=== PATIENT | female | born 1945 | race Caucasian/White ===

== ENCOUNTER 2020-09-20 08:34 | Day surgery (SDC) | payer OTHER ==
[2020-09-20 08:49] LABS: Absolute Lymphocytes (CBC) 0.6 K/uL (0.7-4.9); Basophils % 1.4 % (0-1.3); Lymphocytes % 17.2 % (15.3-44.8); MPV 7.2 fL (7.6-11.3); RBC Red Blood Cell Count 2.42 M/uL (3.86-4.86)
--- NOTE | 2020-09-20 08:54 | RAD REPORT ---
EXAM DESCRIPTION: Harpreet Hyman And Lat (2 Views)09/20/2020 8:25 am CLINICAL HISTORY: Ovarian cancer. Preop for neck mass surgery COMPARISON: None FINDINGS: Calcified pulmonary nodules likely granulomas. The lungs appear clear of acute infiltrate . The heart appears borderline enlarged. A central venous line has its tip in the superior vena cava. Scoliosis involves the spine IMPRESSION: No acute abnormalities displayed
[2020-09-20 08:57] LABS: Potassium 4.6 mmol/L (3.5-5.1)
[2020-09-20] MEDS ORDERED: propofoL 200 MG/20 ML VIAL IV ONE (08:59)
[2020-09-20] MEDS ORDERED: FENTANYL CITR 100 MCG/2 ML ONE (08:59)
[2020-09-20] MEDS ORDERED: LIDOCAINE 2% MPF 5 ML VIAL ONE (08:59)
[2020-09-20] MEDS ORDERED: CEFAZOLIN/SWI 1gm 1 GM/10 ML SYR ONE (09:11)
[2020-09-20] MEDS ORDERED: NA CHLORIDE 0.9% 1,000 ML ONE (09:11)
--- OUTSIDE RECORDS SUMMARY | 2020-09-20 09:27 | XMS REPORT | Clinical Summary ---
:1945 Author Organization [facility] Address [address] [place] [address] Care Team Providers Name Role Phone MD Hans Primary Care Provider Allergies Active Allergy Reactions Severity Noted Date Comments Meperidine GI Intolerance, Other 09/15/2015 "KNOCK ME OUT" & (See Comments) NAUSEA "KNOCK ME OUT" & NAUSEA Sulfamethoxazole-Trime GI Intolerance, Other 5 Other reaction(s): GI thoprim (See Comments) Intolerance Tramadol GI Intolerance, Other 12/04/2017 Other reaction(s): GI (See Comments) Intolerance Medications Medication Sig Dispensed Refills Start End Date Status Date amLODIPine (NORVASC) Take 10 mg 0 Active 10 mg tablet by mouth 8 daily. atenolol (TENORMIN) Take 100 mg 0 Active 100 MG tablet by mouth 2 8 (two) times a day. lisinopril Take 5 mg by 0 Active (PRINIVIL,ZESTRIL) 5 mouth every 8 mg tablet morning. metFORMIN Take 500 mg 0 Active (GLUCOPHAGE) 500 mg by mouth 2 8 tablet (two) times a day with meals. polyethylene glycol Take 17 g by 0 Active (MIRALAX) 17 gram mouth daily packet as needed for constipation . rivaroxaban Take 15 mg 0 Active (XARELTO) 15 mg by mouth tablet daily. gabapentin Take 1 270 capsule 2 Active (NEURONTIN) 100 mg capsule (100 0 capsuleIndications: mg total) by Ovarian cancer on mouth 3 left (HCC), (three) Carcinomatosis times a day. (HCC), Secondary malignant neoplasm of liver (HCC), Elevated CA-125, Neuropathy due to chemotherapeutic drug (HCC) ondansetron (Zofran) Take 1 15 tablet 6 Active 8 MG tablet tablet by 0 mouth every 8 hours for 3 days after infusion, then as needed. niraparib (Zejula) Take 200 mg 120 capsule 3 Active 100 mg capsule by mouth 0 daily. magnesium oxide 400 Take 1 60 tablet 3 Active mg magnesium tablet tablet by 0 mouth 2 (two) times a day. ondansetron (ZOFRAN) Take 1 15 tablet 3 11/12/19 Discontinued 8 MG tablet tablet by 8 20 (Reorder ) mouth every 8 hours for 3 days after infusion, then as needed. ALPRAZolam (XANAX) TAKE 1 0 09/22/20 D iscontinued 0.5 MG tablet TABLET BY 9 19 (Reord er) MOUTH ONCE FOR 1 DOSE TAKE 30 MINUTES PRIOR TO SCAN gabapentin TAKE 1 90 capsule 0 12/08/19 Disconti nued (NEURONTIN) 100 mg CAPSULE BY 9 20 (Reorder) capsuleIndications: MOUTH THREE Ovarian cancer on TIMES DAILY left (HCC), Carcinomatosis (HCC), Secondary malignant neoplasm of liver (HCC), Elevated CA-125, Neuropathy due to chemotherapeutic drug (HCC) ALPRAZolam (XANAX) TAKE 1 1 tablet 0 10/08/19 D iscontinued 0.5 MG tablet TABLET BY 9 20 MOUTH ONCE FOR 1 DOSE TAKE 30 MINUTES PRIOR TO SCAN ALPRAZolam (XANAX) TAKE 1 1 tablet 0 10/08/19 D iscontinued 0.5 MG tablet TABLET BY 0 20 (Dupli ignacio MOUTH order) NEEDED FOR ANXIETY FOR UP TO ONE DOSE. TAKE 30 MINUTES PRIOR TO SCAN ALPRAZolam (XANAX) Take 1 1 tablet 0 02/17/20 D iscontinued 0.5 MG tablet tablet (0.5 0 20 (Reo rder) mg total) by mouth once for 1 dose. Take 30 min prior to scan. ondansetron (ZOFRAN) Take 1 15 tablet 3 12/18/19 Discontinued 8 MG tablet tablet by 0 20 (Reorder ) mouth every 8 hours for 3 days after infusion, then as needed. LORAZepam (ATIVAN) Take 1 5 tablet 0 01/29/20 E xpired 0.5 MG tablet tablet (0.5 0 20 mg total) by mouth daily as needed (prior to chemo for nausia / anxiety) for up to 5 doses. gabapentin Take 1 90 capsule 0 01/02/20 Disconti nued (NEURONTIN) 100 mg capsule (100 0 20 (Reorder) capsuleIndications: mg total) by Ovarian cancer on mouth 3 left (HCC), (three) Carcinomatosis times a day. (HCC), Secondary malignant neoplasm of liver (HCC), Elevated CA-125, Neuropathy due to chemotherapeutic drug (HCC) ondansetron (ZOFRAN) Take 1 15 tablet 6 03/31/20 Discontinued 8 MG tablet tablet by 0 20 (Reorder ) mouth every 8 hours for 3 days after infusion, then as needed. furosemide (LASIX) Take 1 60 tablet 0 03/07/20 E xpired 20 mg tablet tablet (20 0 20 mg total) by mouth 2 (two) times a day for 30 days. Take 1 tab daily starting 02/09/2020 doxycycline Take 1 10 capsule 0 02/11/20 (VIBRAMYCIN) 100 MG capsule (100 0 20 capsule mg total) by mouth 2 (two) times a day for 5 days. ALPRAZolam (Xanax) Take 1 1 tablet 0 02/17/20 E xpired 0.5 MG tablet tablet (0.5 0 20 mg total) by mouth once for 1 dose. Take 30 min prior to scan. atorvastatin Take 20 mg 0 04/25/20 d (LIPITOR) 20 mg by mouth 0 20 tablet daily. ALPRAZolam (Xanax) Take 1 1 tablet 0 04/30/20 E xpired 0.5 MG tablet tablet (0.5 0 20 mg total) by mouth once for 1 dose. Take 30 min prior to scan. nitrofurantoin, Take 1 14 capsule 0 05/10/20 Dis continued macrocrystal-monohyd capsule (100 0 20 (Formulary rate, (Macrobid) 100 mg total) by change) MG capsule mouth 2 (two) times a day for 7 days. ciprofloxacin Take 1 14 tablet 0 05/17/20 d (Cipro) 500 MG tablet (500 0 20 tablet mg total) by mouth 2 (two) times a day for 7 days. albuterol (PROAIR Inhale 2 0 08/12/20 Ex pired HFA) 90 puffs every 0 20 mcg/actuation 6 (six) inhaler hours. amoxicillin-pot Take 1 0 07/23/20 Expi red clavulanate tablet by 0 20 (AUGMENTIN) 875-125 mouth 2 mg per tablet (two) times a day. For 10 days (finish on 07/23) benzonatate Take 100 mg 0 07/27/20 d (TESSALON) 100 MG by mouth 3 0 20 capsule (three) times a day. ALPRAZolam (Xanax) Take 1 1 tablet 0 08/13/20 E xpired 0.5 MG tablet tablet (0.5 0 20 mg total) by mouth once for 1 dose. Take 30 min prior to scan. 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 Ovarian cancer 09/09/2018 Ovarian cancer on left 08/09/2018 Overview: Added automatically from request for ivett polly [id number] Liver metastasis 08/02/2018 Acute dyspnea 05/13/2018 Disorientation 04/05/2018 Confusion with non-focal neuro exam 04/05/2018 Hypomagnesemia 04/05/2018 Hyponatremia 04/05/2018 Chronic atrial fibrillation 04/05/2018 Abnormal brain MRI 04/05/2018 Leukoencephalopathy 04/05/2018 Chest pain 04/03/2018 Anemia associated with chemotherapy 03/27/2018 Ascites, malignant 01/30/2018 Malignant neoplasm of left ovary 01/18/2018 Malignant neoplasm of right ovary 01/18/2018 Carcinomatosis 01/18/2018 Secondary malignant neoplasm of liver 01/18/2018 Diverticular disease 12/04/2017 Aortic aneurysm 12/04/2017 Blood in urine 12/04/2017 Hypertension 12/04/2017 Hyperlipidemia 12/04/2017 Postmenopausal atrophic vaginitis 12/04/2017 Wears glasses Dental crowns status Use of cane as ambulatory aid Encounters Date Type Specialty Care Team Description 09/08/2020 Orders Only Gynecologic Candy Lynch, Malignant neopl asm of left ovary (HCC) (Primary Dx); 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 Malignant neopl asm of right ovary (HCC); Carcinomatosis (HCC) 09/07/2020 Telephone Gynecologic Yahir Oncology MAG [place] 09/06/2020 Orders Only Gynecologic Candy Lynch, 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 09/06/2020 Orders Only Gynecologic Yahir, Malignant neopl asm of Oncology MAG [place] left ovary (HCC ) (Primary Dx) 09/06/2020 Orders Only Gynecologic Candy Lynch, Secondary malig nant neoplasm of liver (HCC) (Primary Dx); 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 Malignant neopl asm of ovary, unspecified laterality (HCC); Malignant neopl asm of left ovary (HCC); Malignant neopl asm of right ovary (HCC); Carcinomatosis (HCC) 08/18/2020 Hospital Encounter Radiology Debbie Sigala Malignant neoplasm of ovary, unspecified laterality (HCC); MD Roberto 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); Secondary malig nant neoplasm of liver (HCC); 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) 08/18/2020 Office Visit Gynecologic Debbie Sigala Malignant neopl asm of left ovary (HCC) (Primary Dx); Oncology MD Roberto Examination moncho or to chemotherapy 08/18/2020 Travel 08/16/2020 Travel 08/16/2020 Telephone Gynecologic Debbie Sigala Oncology MD Roberto 08/13/2020 Orders Only Gynecologic 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 08/09/2020 Telephone Gynecologic Taryn Oncology KARON Hernandez 08/06/2020 Telephone Gynecologic Debbie Sigala Oncology MD Roberto 07/29/2020 Orders Only Gynecologic Debbie Sigala Malignant neopl asm of ovary, unspecified laterality (HCC) (Primary Dx); Oncology MD Roberto 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); Secondary malig nant neoplasm of liver (HCC); 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) 07/29/2020 Telephone Gynecologic Debbie Sigala Oncology MD Roberto 07/22/2020 Infusion Oncology Debbie Sigala Anemia associat ed with chemotherapy (Primary Dx); MD Roberto Malignant neopl asm of left ovary (HCC); Malignant neopl asm of right ovary (HCC); Carcinomatosis (HCC) 07/22/2020 Travel 07/21/2020 Infusion Oncology Debbie Sigala Anemia associat ed with chemotherapy (Primary Dx); MD Roberto Malignant neopl asm of left ovary (HCC); Malignant neopl asm of right ovary (HCC); Carcinomatosis (HCC); Malignant neopl asm of ovary, unspecified laterality (HCC); Secondary malig nant neoplasm of liver (HCC) 07/21/2020 Office Visit Gynecologic Debbie Sigala Examination moncho or to chemotherapy (Primary Dx); Oncology MD Roberto Malignant neopl asm of left ovary (HCC); Elevated CA-125 ; 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); Malignant neopl asm of ovary, unspecified laterality (HCC); Malignant neopl asm of right ovary (HCC); Carcinomatosis (HCC); Secondary malig nant neoplasm of liver (HCC) 07/20/2020 Infusion Oncology Debbie Sigala Anemia associat ed with chemotherapy (Primary Dx); MD Roberto Malignant neopl asm of left ovary (HCC); Malignant neopl asm of right ovary (HCC); Carcinomatosis (HCC); Secondary malig nant neoplasm of liver (HCC); Malignant neopl asm of ovary, unspecified laterality (HCC) 07/20/2020 Travel 07/20/2020 Orders Only Gynecologic Candy Lynch, Malignant neopl asm of left ovary (HCC) (Primary Dx); 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 Anemia followin g use of chemotherapeutic drug; Low blood magne sium level 07/15/2020 Orders Only Gynecologic Candy Lynch, Malignant neopl asm of left ovary (HCC) (Primary Dx); 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 Malignant neopl asm of right ovary (HCC); Examination moncho or to chemotherapy 07/15/2020 Telephone Gynecologic Debbie Sigala Oncology MD Roberto 06/23/2020 Infusion Oncology Debbie Sigala Malignant neopl asm of ovary, unspecified laterality (HCC) (Primary Dx); MD Roberto Malignant neopl asm of left ovary (HCC); Malignant neopl asm of right ovary (HCC); Carcinomatosis (HCC); Secondary malig nant neoplasm of liver (HCC); Malignant neopl asm of both ovaries (HCC) 06/23/2020 Office Visit Gynecologic Debbie Sigala Examination moncho or to chemotherapy (Primary Dx); Oncology MD Roberto Malignant neopl asm of left ovary (HCC); Malignant neopl asm of right ovary (HCC); Carcinomatosis (HCC); Secondary malig nant neoplasm of liver (HCC); Malignant neopl asm of ovary, unspecified laterality (HCC) 06/23/2020 Oncology Oncology Leonard Morejon RN 06/23/2020 Travel 06/22/2020 Orders Only Oncology Re, Malignant neopl asm of MAG [place] ovary, unspecif ied laterality (HCC ) (Primary Dx) 06/21/2020 Travel 06/21/2020 Telephone Gynecologic Candy Lynch, Malignant neopl asm of right ovary (HCC) (Primary Dx); 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 Malignant neopl asm of left ovary (HCC); Secondary malig nant neoplasm of liver (HCC) 06/21/2020 Orders Only Gynecologic Candy Lynch, 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 06/18/2020 Telephone Obstetrics and Debbie Sigala Malignant lalit plasm of left ovary (HCC) (Primary Dx); Gynecology MD Roberto Malignant neopl asm of right ovary (HCC) 06/14/2020 Telephone Obstetrics and Debbie Sigala Gynecology MD Roberto 05/21/2020 Telephone Gynecologic Talia Lei Oncology MA 05/12/2020 Office Visit Gynecologic Debbie Sigala Examination moncho or to chemotherapy (Primary Dx); Oncology MD Roberto Malignant neopl asm of ovary, unspecified laterality (HCC); 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); Elevated CA-125 ; Anemia followin g use of chemotherapeutic drug 05/12/2020 Travel 05/07/2020 Hospital Encounter Radiology Debbie Sigala Malignant neoplasm of ovary, unspecified laterality (HCC); MD Roberto 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); Secondary malig nant neoplasm of liver (HCC); 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) 05/07/2020 Travel 05/06/2020 Telephone Gynecologic Debbie Sigala Oncology MD Roberto 05/06/2020 Travel 05/05/2020 Telephone Gynecologic Debbie Sigala Dysuria (Primar y Dx) Oncology MD Roberto 05/03/2020 Travel 05/03/2020 Telephone Gynecologic Debbie Sigala Oncology MD Roberto 05/01/2020 Travel 04/28/2020 Telephone Gynecologic Debbie Sigala 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) (Primary Dx); Oncology MD Roberto Malignant neopl asm of ovary, unspecified laterality (HCC); 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); Secondary malig nant neoplasm of liver (HCC) 03/31/2020 Telephone Gynecologic Debbie Sigala Oncology MD Roberto 03/25/2020 Infusion Oncology Debbie Sigala Anemia associat ed with chemotherapy (Primary Dx); MD Roberto Malignant neopl asm of left ovary (HCC); Malignant neopl asm of right ovary (HCC); Carcinomatosis (HCC) 03/24/2020 Lab Lab Debbie Sigala Anemia followin g use of MD Roberto chemotherapeuti c drug 03/24/2020 Office Visit Gynecologic Debbie Sigala Malignant neopl asm of ovary, unspecified laterality (HCC) (Primary Dx); Oncology MD Roberto 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); Examination moncho or to chemotherapy; 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); Elevated CA-125 ; Anemia followin g use of chemotherapeutic drug 03/24/2020 Travel 03/22/2020 Telephone Gynecologic 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 Lynch, 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 03/22/2020 Orders Only Candy Beckman, Anemia followin g use of 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 chemotherapeuti c drug (Primary Dx) 03/19/2020 Telephone Radiation Oncology Unique Barber MA 03/18/2020 Telephone Gynecologic Debbie Sigala Oncology MD Roberto 03/15/2020 Telephone Obstetrics and Debbie Sigala Gynecology MD Roberto 03/10/2020 Telephone Gynecologic Debbie Sigala Malignant neopl asm of right ovary (HCC) (Primary Dx); Oncology MD Roberto Malignant neopl asm of left ovary (HCC); Secondary malig nant neoplasm of liver (HCC) 02/26/2020 Infusion Oncology Debbie Sigala Malignant neopl asm of ovary, unspecified laterality (HCC) (Primary Dx); MD Roberto Malignant neopl asm of left ovary (HCC); Malignant neopl asm of right ovary (HCC); Carcinomatosis (HCC); Secondary malig nant neoplasm of liver (HCC) 02/26/2020 Oncology Oncology Leonard Morejon RN 02/26/2020 Orders Only Gynecologic Debbie Sigala Oncology MD Roberto 02/26/2020 Travel 02/25/2020 Orders Only Gynecologic Debbie Sigala Malignant neopl asm of ovary, unspecified laterality (HCC) (Primary Dx); Oncology MD Roberto Malignant neopl asm of left ovary (HCC); Malignant neopl asm of right ovary (HCC); Carcinomatosis (HCC); Secondary malig nant neoplasm of liver (HCC) 02/24/2020 Hospital Encounter Radiology Debbie Sigala Carcinoma tosis (HCC); MD Roberto Secondary malignant neoplasm of liver (H CC); Kanwal Truong Elevated CA-12 5; Daily Malignant neopl asm of ovary, unspecified laterality (HCC) PA-C 02/24/2020 Travel 02/20/2020 Travel 02/17/2020 Telephone Gynecologic Debbie Sigala Oncology MD Roberto 02/12/2020 Travel 02/12/2020 Telephone Obstetrics and Debbie Sigala Gynecology MD Roberto 02/10/2020 Orders Only Gynecologic Kanwal Truong Carcinomatosis (HCC) (Primary Dx); Oncology Daily, Secondary malig nant neoplasm of liver (HCC); PA-C Elevated CA-125 ; Malignant neopl asm of ovary, unspecified laterality (HCC) 02/10/2020 Telephone Obstetrics and Debbie Sigala Gynecology MD Roberto 02/04/2020 - Emergency General Internal [place], Shortness o f breath (Primary Dx); 02/06/2020 Medicine John Cannon MD Abnormal CXR (chest x-ray); Dolores Elevated brain natriuretic peptide (BNP) level; MD Anali Chronic anemia; Thrombocytopeni a (HCC); Hyponatremia; Chronic atrial fibrillation; On anticoagulan t therapy; History of canc er; On antineoplast ic chemotherapy 02/04/2020 Travel 01/27/2020 Telephone Obstetrics and Debbie Sigala 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) (Primary Dx); Gynecology MD Roberto Secondary malig nant neoplasm of liver (HCC) 01/19/2020 Telephone Gynecologic 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 01/15/2020 Infusion Oncology Noé Sigalarifamilia Malignant neopl asm of ovary, unspecified laterality (HCC) (Primary Dx); MD Roberto Malignant neopl asm of left ovary (HCC); Malignant neopl asm of right ovary (HCC); Carcinomatosis (HCC); Secondary malig nant neoplasm of liver (HCC); Anemia associat ed with chemotherapy 01/14/2020 Telephone Consult Gynecologic Debbie Sigala Secondary malignant neoplasm of liver (HCC) (Primary Dx); Oncology MD Roberto Malignant neopl asm of ovary, unspecified laterality (HCC); Malignant neopl asm of left ovary (HCC); Malignant neopl asm of right ovary (HCC); Carcinomatosis (HCC) 01/14/2020 Travel 01/13/2020 Telephone Gynecologic Candy Lynch, 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 01/02/2020 Refill Gynecologic Candy Lynch, Ovarian cancer on left (HCC); 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 Carcinomatosis (HCC); Secondary malig nant neoplasm of liver (HCC); Elevated CA-125 ; Neuropathy due to chemotherapeutic drug (HCC) 12/22/2019 Travel 12/19/2019 Telephone Gynecologic Debbie Sigala Malignant neopl asm of right ovary (HCC) (Primary Dx); Oncology MD Roberto Examination moncho or to chemotherapy 12/18/2019 Infusion Oncology Debbie Sigala Malignant neopl asm of ovary, unspecified laterality (HCC) (Primary Dx); MD Roberto Malignant neopl asm of left ovary (HCC); Malignant neopl asm of right ovary (HCC); Carcinomatosis (HCC); Secondary malig nant neoplasm of liver (HCC) 12/18/2019 Orders Only Gynecologic Noé Sigalarik Malignant neopl asm of ovary, unspecified laterality (HCC) (Primary Dx); Oncology MD Roberto Malignant neopl asm of left ovary (HCC); Malignant neopl asm of right ovary (HCC); Carcinomatosis (HCC); Secondary malig nant neoplasm of liver (HCC) 12/18/2019 Travel 12/18/2019 Orders Only Oncology Sweta Brown RN 12/10/2019 Orders Only Gynecologic Staci Sigalak Oncology MD Roberto 12/07/2019 Refill Obstetrics and Debbie Sigala Ovarian cance r on left (HCC); Gynecology MD Roberto Carcinomatosis (HCC); Secondary malig nant neoplasm of liver (HCC); Elevated CA-125 ; Neuropathy due to chemotherapeutic drug (HCC) 12/04/2019 Telephone Gynecologic Candy Lynch, Malignant neopl asm of right ovary (HCC) (Primary Dx); 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 Elevated CA-125 ; Examination moncho or to chemotherapy 12/03/2019 Office Visit Gynecologic Debbie Sigala Examination moncho or to chemotherapy (Primary Dx); Oncology MD Roberto 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); Malignant neopl asm of right ovary (HCC) 11/24/2019 Telephone Gynecologic Debbie Sigala Oncology MD Roberto 11/18/2019 Telephone Gynecologic Debbie Sigala Oncology MD Roberto 11/12/2019 Infusion Oncology Debbie Sigala Secondary malig nant neoplasm of liver (HCC) (Primary Dx); MD Roberto Carcinomatosis (HCC); Malignant neopl asm of left ovary (HCC); Malignant neopl asm of right ovary (HCC); Malignant neopl asm of ovary, unspecified laterality (HCC) 11/12/2019 Orders Only Oncology Shirlene Warren RPH 11/12/2019 Orders Only Gynecologic Jovon, Tarrik Oncology MD Roberto 11/12/2019 Refill Gynecologic Candy Lynch, 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 11/11/2019 Orders Only Gynecologic Debbie Sigala Malignant neopl asm of ovary, unspecified laterality (HCC); Oncology MD Roberto Malignant neopl asm of left ovary (HCC); Malignant neopl asm of right ovary (HCC); Carcinomatosis (HCC); Secondary malig nant neoplasm of liver (HCC) 11/06/2019 Nurse Triage Gynecologic Candy Lynch, 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 11/06/2019 Orders Only Gynecologic Candy Lynch Dysuria (Primar y Dx) 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 11/05/2019 Telephone Gynecologic Debbie Sigala Oncology MD Roberto 10/22/2019 Office Visit Gynecologic Noé Sigalarifamilia Examination moncho or to chemotherapy (Primary Dx); Oncology MD Roberto 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); Malignant neopl asm of right ovary (HCC); Secondary malnavjot medrano neoplasm of mediastinal lymph nodes (HCC) 10/14/2019 Orders Only Gynecologic Debbie Sigala Secondary malnavjot medrano Oncology MD Roberto neoplasm of intra-abdominal lymph nodes (HCC) (Pr imary Dx) 10/10/2019 Hospital Encounter Radiology Jovon Noémata Ovarian c ancer on left (HCC); MD Roberto Carcinomatosis (HCC); Elevated CA-125 10/08/2019 Orders Only Gynecologic 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 Lynch, 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 10/07/2019 Refill Gynecologic Debbie Sigala Oncology MD Roberto 09/22/2019 Hospital Encounter Radiation Oncology Edgard Resendiz Se malignant neoplasm of para-aortic lymph node (HCC) (Primary Dx); MD Moshe Secondary malig mitchell neoplasm of retroperitoneal lymph node (HCC) 09/22/2019 Nurse Only Oncology Debbie Sigala Ovarian cancer on left MD Roberto (HCC) (Primary Dx) 09/22/2019 Orders Only Gynecologic Candy Lynch, 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 09/22/2019 Orders Only Gynecologic JovonStaci charlesfamilia Ovarian cancer on left (HCC) (Primary Dx); Oncology MD Roberto Carcinomatosis (HCC); Elevated CA-125 09/22/2019 Telephone Gynecologic Debbie Sigala Oncology MD Roberto after 09/20/2019 Surgical History Surgery Date Site/Laterality Comments VEIN STRIPPING, VARICOSE BACK SURGERY REPLACEMENT TOTAL KNEE Left SHOULDER SURGERY Right ABDOMINAL HYSTERECTOMY, WITH 09/09/2018 Abdomen/N/A Pro cedure: LAPAROSCOPIC TOTAL POSSIBLE HYSTERECTOMY BSO , W/ SALPINGO-OOPHORECTOMY OMENTECTOM Y.; Surgeon: Debbie Sigala MD; Location: [facility]; Service: Gynecol ogy; Laterality: N/A; Medical History Medical History Date Comments Hypertension Frequent urination Blood in urine Diverticular disease Aortic aneurysm (HCC) Hyperlipidemia Discoloration of skin Postmenopausal atrophic vaginitis Hyperkalemia Hyponatremia Diabetes mellitus (HCC) A-fib (HCC) Cancer (HCC) Ovarian Atrial fibrillation (HCC) Arrhythmia A fib Anemia Shortness of breath has chest tightness due to weather and allergies Constipation Eating disorder only during chemo Tingling Numbness hands and feet due t o chemo Liver cancer (HCC) Type 2 diabetes mellitus (HCC) Wears glasses Dental crowns status Use of cane as ambulatory aid Exercise tolerance finding ONLY ABLE TO WALK AROUND THE HOUSE AND SOME SHOPPING DUE TO FOOT NUMBNESS/WEAKNESS. NO C/O SOB OR CP ON EXERTIO N NOW. SHE WAS FEELING SOB DURING CHEMO. Family History Medical History Relation Name Comments Colon cancer Mother Relation Name Status Comments Mother Social History Tobacco Use Types Packs/Day Years Used Date Never Smoker Smokeless Tobacco: Never Used Alcohol Use Drinks/Week oz/Week Comments No Sex Assigned at Date Recorded Not on file Job Start Date Occupation Industry Not on file Not on file Not on file Obstetrics History Grav Para Term Pre Abrt (TAB) (SAB) (Ect) Mult Lvng Comments 2 2 Date Outcome GA Total Labor/2nd/3rd Weight Sex Delivery Anes PTL Eloise A 1 A5 Name Clin Labor Para Para Last Filed Vital Signs Vital Sign Reading Time Taken Comments Blood Pressure 159/74 08/18/2020 10:47 AM BEHAVIORAL SCIENTIST Pulse 69 08/18/2020 10:47 AM BEHAVIORAL SCIENTIST Temperature 36.2 C (97.2 F) 07/22/2020 3:26 PM CDT Respiratory Rate 20 07/22/2020 3:26 PM CDT Oxygen Saturation 97% 07/22/2020 3:26 PM CDT Inhaled Oxygen Concentration - - Weight 81.2 kg (179 lb) 08/18/2020 10:47 AM BEHAVIORAL SCIENTIST Height 170.2 cm (5' 7") 08/18/2020 10:47 AM BEHAVIORAL SCIENTIST Body Mass Index 28.04 08/18/2020 10:47 AM BEHAVIORAL SCIENTIST Plan of Treatment Date Type Specialty Care Team Description 09/29/2020 Office Visit [place] [id number], [place] [address] 09/29/2020 [place] [id number] [facility] [address] [place], [place] [address] 10/27/2020 [place] [id number] [facility] [address] [place], [place] [address] Health Maintenance Due Date Last Done Comments DIABETES: RETINAL EYE EXAM 1957 DIABETIC FOOT EXAM 1957 COVID-19 VACCINE (#1) 1963 BREAST CANCER SCREENING 1997 COLONOSCOPY SCREENING 1997 SHINGLES VACCINES (#2) 12/30/2013 11/01/2013 65+ PNEUMOCOCCAL VACCINE Completed 10/19/2017, 09/06/2015 INFLUENZA VACCINE Completed 07/01/2020, 06/16/2020, 2018, Additional history exists Implants Implanted Type Area Planning Manager Device Shelf Model / Identifier Expiration Serial / Date Lot Port [id number] Smart Port W/ Dtchd 0.4ml 6.6fr 55cm W/ Sheath - [id number] Implantable N/A: ANGIODYNAMICS 08/30/2020 [id number] / Implanted: 01/31/2018 at [facility] (Quantity not on file ) Infusion Ports N/A INC / or Accessories [id number] Procedures Procedure Name Priority Date/Time Associated Diagnosis Comme nts PET CT SKULL BASE TO Routine 08/18/2020 3:05 Malignant neopla sm of Results for this MID THIGH PM BEHAVIORAL SCIENTIST ovary, unspecified procedure are in laterality (HCC) the results 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 SMEAR REVIEW Routine 08/18/2020 11:26 Results for this AM BEHAVIORAL SCIENTIST procedure are i n the results section. ESTIMATED GFR Routine 08/18/2020 11:26 Results fo r this AM BEHAVIORAL SCIENTIST procedure are i n the results section. HC COMPLETE BLD COUNT Routine 08/18/2020 11:26 Malignant neopl asm of Results for this W/AUTO DIFF AM BEHAVIORAL SCIENTIST left ovary (HCC) procedure are in Examination prior to the res ults chemotherapy section. CANCER ANTIGEN 125 Routine 08/18/2020 11:26 Malignant neoplasm of Results for this AM BEHAVIORAL SCIENTIST left ovary (HCC) procedure are in Examination prior to the res ults chemotherapy section. COMPREHENSIVE Routine 08/18/2020 11:26 Malignant neoplasm of R esults for this METABOLIC PANEL AM BEHAVIORAL SCIENTIST left ovary (HCC) procedure are in Examination prior to the res ults chemotherapy section. MAGNESIUM LEVEL Routine 08/18/2020 11:26 Malignant neoplasm of Results for this AM BEHAVIORAL SCIENTIST left ovary (HCC) procedure are in Examination prior to the res ults chemotherapy section. TRANSFUSE RED BLOOD Routine 07/22/2020 3:47 Anemia associated with CELLS PM CDT chemotherapy Malignant neoplasm of left ovary (HCC) Malignant neoplasm of right ovary (HCC ) Carcinomatosis (HCC) TRANSFUSE RED BLOOD Routine 07/21/2020 12:35 Anemia associated with CELLS PM CDT chemotherapy Malignant neoplasm of left ovary (HCC) Malignant neoplasm of right ovary (HCC ) Carcinomatosis (HCC) PREPARE RBC Routine 07/20/2020 2:17 Anemia associated with R esults for this PM CDT chemotherapy procedure are in Malignant neoplasm of the re sults left ovary (HCC) section. Malignant neoplasm of right ovary (HCC ) Carcinomatosis (HCC) TYPE AND SCREEN Routine 07/20/2020 2:17 Anemia associated wit h Results for this PM CDT chemotherapy procedure are i n the results section. CBC MORPHOLOGY Routine 07/19/2020 7:44 Results f or this AM CDT procedure are i n the results section. MAGNESIUM LEVEL Routine 07/19/2020 7:44 Malignant neoplasm of Results for this AM CDT left ovary (HCC) procedure are in Malignant neoplasm of the re sults right ovary (HCC ) section. Examination prior to chemotherapy COMPREHENSIVE Routine 07/19/2020 7:44 Malignant neoplasm of R esults for this METABOLIC PANEL AM CDT left ovary (HCC) procedure are in Malignant neoplasm of the re sults right ovary (HCC ) section. Examination prior to chemotherapy CBC WITH PLATELET AND Routine 07/19/2020 7:44 Malignant neopl asm of Results for this DIFFERENTIAL AM CDT left ovary (HCC) procedure are in Malignant neoplasm of the re sults right ovary (HCC ) section. Examination prior to chemotherapy CANCER ANTIGEN 125 Routine 07/19/2020 7:44 Malignant neoplasm of Results for this AM CDT left ovary (HCC) procedure are in Malignant neoplasm of the re sults right ovary (HCC ) section. Examination prior to chemotherapy MAGNESIUM LEVEL STAT 06/23/2020 10:04 Malignant neoplasm of Results for this AM CDT ovary, unspecified procedure are in laterality (HCC) the results Malignant neoplasm of sectio n. left ovary (HCC) Malignant neoplasm of right ovary (HCC ) Carcinomatosis ( HCC) Secondary malignant neoplasm of liver (HCC) CBC WITH PLATELET AND Routine 06/21/2020 1:21 Malignant neopl asm of Results for this DIFFERENTIAL PM CDT right ovary (HCC ) procedure are in Malignant neoplasm of the re sults left ovary (HCC) section. Secondary malignant neoplasm of liver (HCC) COMPREHENSIVE Routine 06/21/2020 1:21 Malignant neoplasm of R esults for this METABOLIC PANEL PM CDT right ovary (HCC ) procedure are in Malignant neoplasm of the re sults left ovary (HCC) section. Secondary malignant neoplasm of liver (HCC) CANCER ANTIGEN 125 Routine 06/21/2020 1:21 Malignant neoplasm of Results for this PM CDT right ovary (HCC ) procedure are in Malignant neoplasm of the re sults left ovary (HCC) section. 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 URINALYSIS, AUTOMATED Routine 05/05/2020 12:00 Dysuria Re sults for this WITH MICROSCOPY AM CDT procedure ar e in the results section. URINE CULTURE Routine 05/05/2020 12:00 Dysuria Results fo r this AM CDT procedure are i n the results section. TRANSFUSE RED BLOOD Routine 03/25/2020 3:38 Anemia associated with CELLS PM CDT chemotherapy Malignant neoplasm of left ovary (HCC) Malignant neoplasm of right ovary (HCC ) Carcinomatosis (HCC) TRANSFUSE RED BLOOD Routine 03/25/2020 12:52 Anemia associated with CELLS PM CDT chemotherapy Malignant neoplasm of left ovary (HCC) Malignant neoplasm of right ovary (HCC ) Carcinomatosis (HCC) PREPARE RBC Routine 03/24/2020 9:47 Results for this AM CDT procedure are i n the results section. TYPE AND SCREEN Routine 03/24/2020 9:47 Anemia following use of Results for this AM CDT chemotherapeutic drug proced ure are in the results section. CBC WITH PLATELET AND Routine 03/20/2020 8:27 Malignant neopl asm of Results for this DIFFERENTIAL AM CDT right ovary (HCC ) procedure are in Malignant neoplasm of the re sults left ovary (HCC) section. Secondary malignant neoplasm of liver (HCC) COMPREHENSIVE Routine 03/20/2020 8:27 Malignant neoplasm of R esults for this METABOLIC PANEL AM CDT right ovary (HCC ) procedure are in Malignant neoplasm of the re sults left ovary (HCC) section. Secondary malignant neoplasm of liver (HCC) CANCER ANTIGEN 125 Routine 03/20/2020 8:27 Malignant neoplasm of Results for this AM CDT right ovary (HCC ) procedure are in Malignant neoplasm of the re sults left ovary (HCC) section. Secondary malignant neoplasm of liver (HCC) ESTIMATED GFR STAT 02/26/2020 9:40 Results fo r this AM CDT procedure are i n the results section. MAGNESIUM LEVEL STAT 02/26/2020 9:40 Malignant neoplasm of Results for this AM CDT ovary, unspecified procedure are in laterality (HCC) the results Malignant neoplasm of sectio n. left ovary (HCC) Malignant neoplasm of right ovary (HCC ) Carcinomatosis ( HCC) Secondary malignant neoplasm of liver (HCC) ABSOLUTE NEUTROPHIL STAT 02/26/2020 9:40 Malignant neoplas m of Results for this COUNT AM CDT ovary, unspecified procedure are in laterality (HCC) the results Malignant neoplasm of sectio n. left ovary (HCC) Malignant neoplasm of right ovary (HCC ) Carcinomatosis ( HCC) Secondary malignant neoplasm of liver (HCC) HC COMPLETE BLD COUNT STAT 02/26/2020 9:40 Malignant neopl asm of Results for this W/AUTO DIFF AM CDT ovary, unspecified procedure are in laterality (HCC) the results Malignant neoplasm of sectio n. left ovary (HCC) Malignant neoplasm of right ovary (HCC ) Carcinomatosis ( HCC) Secondary malignant neoplasm of liver (HCC) COMPREHENSIVE STAT 02/26/2020 9:40 Malignant neoplasm of R esults for this METABOLIC PANEL AM CDT ovary, unspecified proced ure are in laterality (HCC) the results Malignant neoplasm of sectio n. left ovary (HCC) Malignant neoplasm of right ovary (HCC ) Carcinomatosis ( HCC) Secondary malignant neoplasm of liver (HCC) PET CT SKULL BASE TO Routine 02/24/2020 4:41 Carcinomat osis (HCC) Results for this MID THIGH PM CDT Secondary malignant procedur e are in neoplasm of live r (HCC) the results Elevated CA-125 section. Malignant neoplasm of ovary, unspecified laterality (HCC) POC GLUCOSE Routine 02/24/2020 2:26 Results for this PM CDT procedure are i n the results section. POC GLUCOSE Routine 02/06/2020 11:28 Results for this AM CDT procedure are i n the results section. POC GLUCOSE Routine 02/06/2020 7:48 Results for this AM CDT procedure are i n the results section. ESTIMATED GFR Routine 02/06/2020 6:20 Results fo r this AM CDT procedure are i n the results section. BASIC METABOLIC PANEL Routine 02/06/2020 6:20 Re sults for this AM CDT procedure are i n the results section. HC COMPLETE BLD COUNT Routine 02/06/2020 6:20 Re sults for this W/AUTO DIFF AM CDT procedure are i n the results section. POC GLUCOSE Routine 02/05/2020 9:09 Results for this PM CDT procedure are i n the results section. POC GLUCOSE Routine 02/05/2020 5:15 Results for this PM CDT procedure are i n the results section. POC GLUCOSE Routine 02/05/2020 11:18 Results for this AM CDT procedure are i n the results section. POC GLUCOSE Routine 02/05/2020 8:47 Results for this AM CDT procedure are i n the results section. TTE COMPLETE, WO Routine 02/05/2020 8:14 Results for this CONTRAST, WO DOPPLER AM CDT procedu re are in the results section. ESTIMATED GFR Routine 02/05/2020 5:05 Results fo r this AM CDT procedure are i n the results section. BASIC METABOLIC PANEL Routine 02/05/2020 5:05 Re sults for this AM CDT procedure are i n the results section. HC COMPLETE BLD COUNT Routine 02/05/2020 5:05 Re sults for this W/AUTO DIFF AM CDT procedure are i n the results section. TROPONIN Routine 02/04/2020 9:24 Results for this PM CDT procedure are i n the results section. LACTIC ACID LEVEL, Timed 02/04/2020 9:24 Resul ts for this SEPSIS - NOW AND PM CDT procedure a re in REPEAT 2X EVERY 3 the result s HOURS section. POC GLUCOSE Routine 02/04/2020 8:22 Results for this PM CDT procedure are i n the results section. POC GLUCOSE Routine 02/04/2020 6:24 Results for this PM CDT procedure are i n the results section. LACTIC ACID LEVEL, Timed 02/04/2020 5:35 Resul ts for this SEPSIS - NOW AND PM CDT procedure a re in REPEAT 2X EVERY 3 the result s HOURS section. TROPONIN Timed 02/04/2020 5:35 Results for this PM CDT procedure are i n the results section. BLOOD CULTURE, Routine 02/04/2020 3:06 Results f or this AEROBIC & ANAEROBIC PM CDT procedur e are in the results section. PREPARE RBC Routine 02/04/2020 3:00 Results for this PM CDT procedure are i n the results section. PREPARE RBC Routine 02/04/2020 3:00 Results for this PM CDT procedure are i n the results section. LACTIC ACID LEVEL, Timed 02/04/2020 3:00 Resul ts for this SEPSIS - NOW AND PM CDT procedure a re in REPEAT 2X EVERY 3 the result s HOURS section. TYPE AND SCREEN Routine 02/04/2020 3:00 Results for this PM CDT procedure are i n the results section. BLOOD CULTURE, Routine 02/04/2020 2:00 Results f or this AEROBIC & ANAEROBIC PM CDT procedur e are in the results section. XR CHEST 1 VW STAT 02/04/2020 1:28 Results fo r this PORTABLE PM CDT procedure are i n the results section. PARTIAL STAT 02/04/2020 1:10 Results for this THROMBOPLASTIN TIME PM CDT procedur e are in (PTT) the results section. PROTHROMBIN TIME WITH STAT 02/04/2020 1:10 Re sults for this INR PM CDT procedure are i n the results section. ECG ED PRELIMINARY Routine 02/04/2020 1:06 Resul ts for this INTERPRETATION PM CDT procedure are in the results section. ESTIMATED GFR STAT 02/04/2020 1:05 Results fo r this PM CDT procedure are i n the results section. B NATRIURETIC PEPTIDE STAT 02/04/2020 1:05 Re sults for this PM CDT procedure are i n the results section. TROPONIN STAT 02/04/2020 1:05 Results for this PM CDT procedure are i n the results section. COMPREHENSIVE STAT 02/04/2020 1:05 Results fo r this METABOLIC PANEL PM CDT procedure ar e in the results section. HC COMPLETE BLD COUNT STAT 02/04/2020 1:05 Re sults for this W/AUTO DIFF PM CDT procedure are i n the results section. ECG 12-LEAD STAT 02/04/2020 1:00 Results for this PM CDT procedure are i n the results section. TRANSFUSE RED BLOOD Routine 01/15/2020 5:25 Anemia associated with CELLS PM CDT chemotherapy Malignant neoplasm of left ovary (HCC) Malignant neoplasm of right ovary (HCC ) Carcinomatosis (HCC) TRANSFUSE RED BLOOD Routine 01/15/2020 3:02 Anemia associated with CELLS PM CDT chemotherapy Malignant neoplasm of left ovary (HCC) Malignant neoplasm of right ovary (HCC ) Carcinomatosis (HCC) PREPARE RBC STAT 01/15/2020 9:00 Anemia associated with R esults for this AM CDT chemotherapy procedure are in Malignant neoplasm of the re sults left ovary (HCC) section. Malignant neoplasm of right ovary (HCC ) Carcinomatosis (HCC) TYPE AND SCREEN STAT 01/15/2020 9:00 Malignant neoplasm of Results for this AM CDT ovary, unspecified procedure are in laterality (HCC) the results Malignant neoplasm of sectio n. left ovary (HCC) Malignant neoplasm of right ovary (HCC ) Carcinomatosis ( HCC) Secondary malignant neoplasm of liver (HCC) CBC MORPHOLOGY Routine 01/12/2020 7:56 Results f or this AM CDT procedure are i n the results section. COMPREHENSIVE Routine 01/12/2020 7:56 Malignant neoplasm of R esults for this METABOLIC PANEL AM CDT right ovary (HCC ) procedure are in Examination prior to the res ults chemotherapy section. CBC WITH PLATELET AND Routine 01/12/2020 7:56 Malignant neopl asm of Results for this DIFFERENTIAL AM CDT right ovary (HCC ) procedure are in Examination prior to the res ults chemotherapy section. CANCER ANTIGEN 125 Routine 01/12/2020 7:56 Malignant neoplasm of Results for this AM CDT right ovary (HCC ) procedure are in Examination prior to the res ults chemotherapy section. MAGNESIUM LEVEL Routine 01/12/2020 7:56 Malignant neoplasm of Results for this AM CDT right ovary (HCC ) procedure are in Examination prior to the res ults chemotherapy section. ESTIMATED GFR STAT 12/18/2019 8:30 Results fo r this AM CDT procedure are i n the results section. MAGNESIUM LEVEL STAT 12/18/2019 8:30 Malignant neoplasm of Results for this AM CDT ovary, unspecified procedure are in laterality (HCC) the results Malignant neoplasm of sectio n. left ovary (HCC) Malignant neoplasm of right ovary (HCC ) Carcinomatosis ( HCC) Secondary malignant neoplasm of liver (HCC) HC COMPLETE BLD COUNT STAT 12/18/2019 8:30 Malignant neopl asm of Results for this W/AUTO DIFF AM CDT ovary, unspecified procedure are in laterality (HCC) the results Malignant neoplasm of sectio n. left ovary (HCC) Malignant neoplasm of right ovary (HCC ) Carcinomatosis ( HCC) Secondary malignant neoplasm of liver (HCC) COMPREHENSIVE STAT 12/18/2019 8:30 Malignant neoplasm of R esults for this METABOLIC PANEL AM CDT ovary, unspecified proced ure are in laterality (HCC) the results Malignant neoplasm of sectio n. left ovary (HCC) Malignant neoplasm of right ovary (HCC ) Carcinomatosis ( HCC) Secondary malignant neoplasm of liver (HCC) CANCER ANTIGEN 125 Routine 12/09/2019 8:12 Malignant neoplasm of Results for this AM CDT right ovary (HCC ) procedure are in Elevated CA-125 the results Examination prior to section . chemotherapy COMPREHENSIVE Routine 12/09/2019 8:12 Malignant neoplasm of R esults for this METABOLIC PANEL AM CDT right ovary (HCC ) procedure are in Elevated CA-125 the results Examination prior to section . chemotherapy CBC WITH PLATELET AND Routine 12/09/2019 8:12 Malignant neopl asm of Results for this DIFFERENTIAL AM CDT right ovary (HCC ) procedure are in Elevated CA-125 the results Examination prior to section . chemotherapy MANUAL DIFFERENTIAL Routine 12/03/2019 9:27 Resu lts for this AM BEHAVIORAL SCIENTIST procedure are i n the results section. ESTIMATED GFR Routine 12/03/2019 9:27 Results fo r this AM BEHAVIORAL SCIENTIST procedure are i n the results section. CBC WITH PLATELET AND Routine 12/03/2019 9:27 Malignant neopl asm of Results for this DIFFERENTIAL AM BEHAVIORAL SCIENTIST ovary, unspecified procedure are in laterality (HCC) the results section. COMPREHENSIVE Routine 12/03/2019 9:27 Malignant neoplasm of R esults for this METABOLIC PANEL AM BEHAVIORAL SCIENTIST ovary, unspecified proced ure are in laterality (HCC) the results section. MAGNESIUM LEVEL Routine 12/03/2019 9:27 Malignant neoplasm of Results for this AM BEHAVIORAL SCIENTIST ovary, unspecified procedure are in laterality (HCC) the results section. ESTIMATED GFR STAT 11/12/2019 9:15 Results fo r this AM BEHAVIORAL SCIENTIST procedure are i n the results section. MAGNESIUM LEVEL STAT 11/12/2019 9:15 Malignant neoplasm of Results for this AM BEHAVIORAL SCIENTIST ovary, unspecified procedure are in laterality (HCC) the results Malignant neoplasm of sectio n. left ovary (HCC) Malignant neoplasm of right ovary (HCC ) Carcinomatosis ( HCC) Secondary malignant neoplasm of liver (HCC) HC COMPLETE BLD COUNT STAT 11/12/2019 9:15 Malignant neopl asm of Results for this W/AUTO DIFF AM BEHAVIORAL SCIENTIST ovary, unspecified procedure are in laterality (HCC) the results Malignant neoplasm of sectio n. left ovary (HCC) Malignant neoplasm of right ovary (HCC ) Carcinomatosis ( HCC) Secondary malignant neoplasm of liver (HCC) COMPREHENSIVE STAT 11/12/2019 9:15 Malignant neoplasm of R esults for this METABOLIC PANEL AM BEHAVIORAL SCIENTIST ovary, unspecified proced ure are in laterality (HCC) the results Malignant neoplasm of sectio n. left ovary (HCC) Malignant neoplasm of right ovary (HCC ) Carcinomatosis ( HCC) Secondary malignant neoplasm of liver (HCC) URINALYSIS, COMPLETE, Routine 11/07/2019 7:59 Dysuria Re sults for this WITH REFLEX TO AM BEHAVIORAL SCIENTIST procedure are in CULTURE the results section. REFLEXIVE URINE Routine 11/07/2019 7:59 Results for this CULTURE AM BEHAVIORAL SCIENTIST procedure are i n the results section. CANCER ANTIGEN 125 Routine 10/17/2019 8:24 Secondary malignan t Results for this AM BEHAVIORAL SCIENTIST neoplasm of procedure are i n intra-abdominal lymph the re sults nodes (HCC) section. COMPREHENSIVE Routine 10/17/2019 8:24 Secondary malignant Res ults for this METABOLIC PANEL AM BEHAVIORAL SCIENTIST neoplasm of procedure ar e in intra-abdominal lymph the re sults nodes (HCC) section. CBC WITH PLATELET AND Routine 10/17/2019 8:24 Secondary malig nant Results for this DIFFERENTIAL AM BEHAVIORAL SCIENTIST neoplasm of procedure are i n intra-abdominal lymph the re sults nodes (HCC) section. PET CT SKULL BASE TO Routine 10/10/2019 10:52 Ovarian cancer o n left Results for this MID THIGH AM BEHAVIORAL SCIENTIST (HCC) procedure are in Carcinomatosis ( HCC) the results Elevated CA-125 section. POC GLUCOSE Routine 10/10/2019 8:29 Results for this AM BEHAVIORAL SCIENTIST procedure are i n the results section. after 09/20/2019 Results PET/CT Skull Base To Mid Thigh (08/18/2020 3:05 PM BEHAVIORAL SCIENTIST)Only the most recent of4 resultswithin the time period is included. Specimen Narrative Performed At This result has an attachment that is no t available. 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 Subsequent treatment strategy RESTAGING Restaging PET scan. COMPARISON: PET-CT 05/07/2020 TECHNIQUE: Blood glucose measured at the time of injection was 93 mg/dL. The patient was then intravenously injected with 15 mCi of 18F-FDG. Approximately one hour later, PET images were acquired from t he skull base to the mid thighs. Corresponding, low dose, non-contrast CT scanning was perfo rmed as part of the attenuation correction process. FINDINGS: Head and neck: No suspicious lesions are seen in the i zoey head and neck. Chest: No suspicious pulmonary lesions a re identified. There is no mediastinal or hilar lymphadenopathy. No abnormal FDG uptake is seen in the breasts and axillae. Abdomen: Intra-abdominal solid organs de monstrate physiological metabolism without evidence of mass lesions. Bowel metabolism is diffusely prominent, within physiological limits. No hypermetabolic retro peritoneal or mesenteric lymphadenopathy is seen. Pelvis: Right pelvic mesenteric lesion i s stable in size remaining at the 1.4 cm and demonstrates slight decrease in FDG uptake with SUV of 6.7 (previous SUV was 7.8). No new FDG-avid lesions are definitively identified in the pelvis. Musculoskeletal: No worrisome bony lesio ns are identified. Diffusely prominent bone marrow metabolism is consistent with recent systemic therapy. Mild inflammation associated with degenerative arthropathy is noted in the lower lumbar spine. IMPRESSION: Solitary right pelvic mesenteric lesion is unchanged in size and demonstrates slight decrease in hypermetabolism, compatible with stable metastatic disease. 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 Subsequent treatment strategy RESTAGING Restaging PET scan. COMPARISON: PET-CT 05/07/2020 TECHNIQUE: Blood glucose measured at the time of injection was 93 mg/dL. The patient was then intravenously injected with 15 mCi of 18F-FDG. Approximately one hour later, PET images were acquired from the skull base to the mid thighs. Corresponding, low dose, non-contrast CT scanning was perfo rmed as part of the attenuation correction process. FINDINGS: Head and neck: No suspicious lesions are seen in the imaged head and neck. Chest: No suspicious pulmonary lesions a re identified. There is no mediastinal or hilar lymphadenopathy. No abnormal FDG uptake is seen in the breasts and axillae. Abdomen: Intra-abdominal solid organs de monstrate physiological metabolism without evidence of mass lesions. Bowel metabolism is diffusely prominent, within physiological limits. No hypermetabolic retroperitoneal or mesenteric lymphadenopathy is seen. Pelvis: Right pelvic mesenteric lesion i s stable in size remaining at the 1.4 cm and demonstrates slight decrease in FDG uptake with SUV of 6.7 (previous SUV was 7.8). No new FDG-avid lesions are definitively identified in the pelvis. Musculoskeletal: No worrisome bony lesio ns are identified. Diffusely prominent bone marrow metabolism is consistent with recent systemic therapy. Mild inflammation associated with degenerative arthropathy is noted in the lower lumbar spine. IMPRESSION: Solitary right pelvic mesenteric lesion is unchanged in size and demonstrates slight decrease in hypermetabolism, compatible with stable metastatic disease. [id number] Performing Organization Address City/State/ZIP Code Phon e Number [facility] [address] [place] [address] POC glucose (08/18/2020 1:09 PM BEHAVIORAL SCIENTIST)Only the most recent of12 resultswithin the time period is included. Pathologist Sig nature POC glucose 93 65 - 99 mg/dL [facility] Comment: [facility] Supervisor Typesetting Name: Priti Reyes Device ID: [id number] Specimen Blood Performing Organization Address City/[facility] Phon e Number [facility] DEPARTMENT OF PATHOLOGY [address] [place] [address] Smear review (08/18/2020 11:26 AM BEHAVIORAL SCIENTIST) Pathologist [facility] Platelet slide review Dieudonne slt decr (A) [facility] Anisocytosis Moderate [facility] Polychromasia Moderate [facility] Tear drop cells Occasional [facility] Ovalocytes Moderate [facility] Acanthocytes Occasional [facility] Enlarged platelets Moderate (A) [facility] Specimen Plasma Performing Organization Address [facility] Phon e Number [facility] DEPARTMENT OF PATHOLOGY [address] [place] [address] Estimated GFR (08/18/2020 11:26 AM BEHAVIORAL SCIENTIST)Only the most recent of9 resultswithin the time period is included. [facility] Estimated GFR 53 (A) mL/min/1.73 [facility] Comment: m2 [place] Catergory Units Interpretation HOS PITAL G1 >=90 Normal or high G2 60-89 Mildly decreased G3a 45-59 Mildly to moderately decreas ed G3b 30-44 Moderately to severely decre ased G4 15-29 Severely decreased G5 <15 Kidney failure The eGFR was calculated using the Chronic Kidney Disea se Epidemiology Collaboration (CKD-EPI) equation. Interpretation is based on recommendations of the National Kidney Foundation-Kidney Disease Outcomes Moreno lity Initiative (NKF-KDOQI) published in 2014. Specimen Plasma Performing Organization Address City/[facility] Phon e Number [facility] DEPARTMENT OF PATHOLOGY [address] [place] [address] CBC with platelet and differential (08/18/2020 11:26 AM BEHAVIORAL SCIENTIST)Only the most recent of15 resultswithin the time period is included. Pathologist [facility] WBC 4.2 (L) 4.5 - 11.0 k/uL [facility] RBC 2.34 (L) 4.20 - 5.50 [facility] m/uL [facility] HGB 7.9 (L) 12.0 - 16.0 [facility] g/dL [facility] HCT 24.0 (L) 37.0 - 47.0 % [facility] MCV 102.6 (H) 82.0 - 100.0 fL [facility] MCH 33.8 27.0 - 34.0 pg [facility] MCHC 32.9 31.0 - 37.0 [facility] g/dL [facility] RDW - SD 77.5 (H) 37.0 - 55.0 fL [facility] MPV 9.7 6.9 - 11.0 fL [facility] Platelet count 137 (L) 150 - 400 K/uL [facility] Nucleated RBC 0.00 /100 WBC [facility] Neutrophils 58.1 39.0 - 69.0 % [facility] Lymphocytes 29.0 25.0 - 45.0 % [facility] Monocytes 10.5 (H) 0.0 - 10.0 % [facility] Eosinophils 1.2 0.0 - 5.0 % [facility] Basophils 1.0 0.0 - 1.0 % [facility] Immature granulocytes 0.2 0.0 - 1.0 % [facility] Specimen Plasma Performing Organization Address [facility] Phon e Number [facility] DEPARTMENT OF PATHOLOGY [address] [facility] X [address] AND GENOMIC [facility]IC[facility] [address] [facility] X [address] HOSPITAL Cancer antigen 125 (08/18/2020 11:26 AM BEHAVIORAL SCIENTIST)Only the most recent of8 results within the time period is included. CA 125 183 (H) 0 - 35 U/mL [facility] Comment: HOSPITAL The makerist Levi 8000 CA125 immunoassay was used. Results obtained with different assay methods or kits should not be used interchangeably and may be differen t. Specimen Plasma Performing Organization Address City/State/ZIP Code Phon e Number [facility] DEPARTMENT OF PATHOLOGY AND [address] [place] [address] [facility] [address] [place] [address] Magnesium level (08/18/2020 11:26 AM BEHAVIORAL SCIENTIST)Only the most recent of9 resultswithin the time period is included. Pathologist Sig nature Magnesium 1.4 (L) 1.6 - 2.4 mg/dL [facility] Specimen Plasma Performing Organization Address City/[facility]/ZIP Code Phon e Number [facility] DEPARTMENT OF PATHOLOGY [address] [facility] X [address] AND [facility] [id number] [place] [address] X [address] [facility] Comprehensive metabolic panel (08/18/2020 11:26 AM BEHAVIORAL SCIENTIST)Only the most recent of13 resultswithin the time period is included. Pathologist Sig nature Sodium 129 (L) 135 - 148 mEq/L [facility] Potassium 4.5 3.5 - 5.0 mEq/L [facility] Chloride 93 (L) 98 - 112 mEq/L [facility] CO2 26 24 - 31 mEq/L [facility] Anion gap 10@ANIO 7 - 15 mEq/L [facility] BUN 21 8 - 23 mg/dL [facility] Creatinine 1.04 (H) 0.50 - 0.90 [facility] mg/dL [facility] Glucose 101 (H) 65 - 99 mg/dL [facility] Calcium 10.0 8.8 - 10.2 [facility] mg/dL [facility] Protein 6.5 6.3 - 8.3 g/dL [facility] Albumin 3.7 3.5 - 5.0 g/dL [facility] A/G ratio 1.3 0.7 - 3.8 [facility] Alkaline phosphatase 114 (H) 35 - 104 U/L [facility] AST 30 10 - 35 U/L [facility] ALT 17 5 - 50 U/L [facility] Total bilirubin 0.7 0.2 - 1.2 mg/dL [facility] Specimen Plasma Performing Organization Address City/[facility]/ZIP Code Phon e Number [facility] DEPARTMENT OF PATHOLOGY [id number] [place] [address]. [facility] X [address] AND [facility] [address] [place] [address] X [address] HOSPITAL Transfuse RBC (07/22/2020 3:47 PM CDT)Only the most recent of6 resultswithin the time period is included.Prepare RBC, 2 Units (07/20/2020 2:17 PM CDT)Only the most recent of5 resultswithin the time period is included. Product name Apheresis -1 LR #1 [facility] Unit number [id number] [facility] Product code [id number] [facility] Dispense status Transfused [facility] Blood expiration date [facility] Blood type code 5100 [facility] Blood type O POSITIVE [facility] Compatibility Compatible [facility] Product name Red Blood Cells [facility], Leukored [facility] Unit number [id number] [facility] Product code [id number] [facility] Dispense status Transfused [facility] Blood expiration date [facility] Blood type code 5100 [facility] Blood type O POSITIVE [facility] Compatibility Compatible [facility] Specimen Plasma Performing Organization Address City/[facility]/ZIP Code Phon e Number [facility] DEPARTMENT OF PATHOLOGY [address] [place] [address] X [address] X [address] HOSPITAL Type and screen (07/20/2020 2:17 PM CDT)Only the most recent of4 resultswithin the time period is included. Pathologist Sig nature ABO grouping OComment: Blood [facility] is available. [facility] 07/20/20 17:01 Eduarda Myalil Rh type POS [facility] Antibody screen NEG [facility] (gel) [facility] Specimen Blood Performing Organization Address City/[facility]/ZIP Code Phon e Number [facility] DEPARTMENT OF PATHOLOGY [address] [place] [address] X [address] [place]le [place]ano, [place] [address] [facility] CBC MORPHOLOGY (07/19/2020 7:44 AM CDT)Only the most recent of2 resultswithin the time period is included. CBC morphology NORMAL [facility] Comment: [place] Anisocytosis 1 + Macrocytosis 1 + Poikilocytosis 1 + Hypochromasia 1 + Bland cells 1 + Specimen Narrative Performed At FASTING:NO [facility] FASTING: NO Resulting Agency Comment Performing Organization Information: Site ID: [id number] Address: [address] [place] [id number] Director: Bryce Drew Performing Organization Address [facility] Phon e Number [facility] [place] [id number] Urinalysis, automated with microscopy (05/05/2020 12:00 AM CDT) Color, UA YELLOW YELLOW [facility] [place] Appearance TURBID (A) CLEAR [facility] [place] Specific gravity, 1.016 1.001 - 1.035 [facility] urine [place] pH, urine 5.5 5.0 - 8.0 [facility] [place] Glucose, urine NEGATIVE NEGATIVE [facility] [place] Bilirubin, UA NEGATIVE NEGATIVE [facility] [place] Ketones, UA TRACE (A) NEGATIVE [facility] [place] Occult blood, 2+ (A) NEGATIVE [facility] urine [place] Protein, UA 2+ (A) NEGATIVE [facility] [place] Nitrite, UA NEGATIVE NEGATIVE [facility] [place] Leukocyte 3+ (A) NEGATIVE [facility] esterase, UA [facility] WBC, UA > OR = 60 (A) < OR = 5 /HPF [facility] [place] RBC, UA 3-10 (A) < OR = 2 /HPF [facility] [place] Squamous 0-5 < OR = 5 /HPF [facility] epithelial cells, [place] UA Bacteria, UA FEW (A) NONE SEEN /HPF [facility] [place] Hyaline casts, UA NONE SEEN NONE SEEN /LPF [facility] [place] Specimen Urine Narrative Performed At FASTING:NO [facility] FASTING: NO Resulting Agency Comment Performing Organization Information: Site ID: [id number] Name[facility] Address: [address] [place] [id number] Director: Bryce Drew Performing Organization Address City/[facility] Phon e Number [facility] Adisn [address] [address] Urine culture (05/05/2020 12:00 AM CDT) Urine culture SEE NOTE (A) [facility] Comment: [facility] CULTURE, URINE, ROUTINE Micro Number: [id number] Test Status: Final Specimen Source: URINE, CLEAN CATCH Specimen Quality: Adequate Result: Greater than 100,000 CFU/mL of Klebsiella pneumoniae K.pneumoniae - INT ANTONELLA AMOX/CLAVULANATE S <=2 AMPICILLIN R >=32 AMP/SULBACTAM S 4 CEFAZOLIN NR <=4 2 CEFEPIME S <=1 CEFTRIAXONE S <=1 CIPROFLOXACIN S <=0.25 GENTAMICIN S <=1 IMIPENEM S <=0.25 LEVOFLOXACIN S <=0.12 NITROFURANTOIN I 64 PIP/TAZOBACTAM S <=4 TOBRAMYCIN S <=1 TRIMETHOPRIM/SULFA S <=20 S=Susceptible I=Intermediate R=Resistant * = Not Tested NR = Not Reported NN = See Therapy Comments THERAPY COMMENTS Note 1: For infections other than uncomplicated UTI caused by E. coli, K. pneumoniae or P. mirabilis : Cefazolin is resistant if ANTONELLA > or = 8 mcg/mL. (Distinguishing susceptible versus intermediate for isolates with ANTONELLA < or = 4 mcg/mL requires additional testing.) Note 2: For uncomplicated UTI caused by E. coli, K. pneumoniae or P. mirabilis: Cefazolin is susceptible if ANTONELLA <32 mcg/mL and predicts susceptible to the oral agents cefaclor, cefdini r, cefpodoxime, cefprozil, cefuroxime, cephalexin and loracarbef. Specimen Urine Narrative Performed At FASTING:NO [facility] FASTING: NO Resulting Agency Comment Performing Organization Information: Site ID: [id number] Name: [facility] Address: [address] [place] [id number] Director: Bryce Drew Performing Organization Address City/State/ZIP Code Phon e Number [facility] [address] [address] Absolute neutrophil count (02/26/2020 9:40 AM CDT) Pathologist Sig nature Neutrophils, absolute 3.08 1.76 - 7.59 k/uL [facility] Specimen Blood Performing Organization Address City/[facility]/ZIP Code Phon e Number [facility] DEPARTMENT OF PATHOLOGY [id number] [place] [address] Basic metabolic panel (02/06/2020 6:20 AM CDT)Only the most recent of2 results within the time period is included. [facility] Sodium 127 (L) 135 - 148 mEq/L [facility] Potassium 3.9 3.5 - 5.0 mEq/L [facility] Chloride 92 (L) 98 - 112 mEq/L [facility] CO2 26 24 - 31 mEq/L [facility] Anion gap 9@ANIO 7 - 15 mEq/L [facility] BUN 22 8 - 23 mg/dL [facility] Creatinine 1.19 (H) 0.50 - 0.90 mg/dL [facility] Glucose 109 (H) 65 - 99 mg/dL [facility] Calcium 8.3 (L) 8.8 - 10.2 mg/dL [facility] Specimen Blood Performing Organization Address City/[facility] Code Phon e Number [facility] DEPARTMENT OF PATHOLOGY [id number] [place] [address] Transthoracic Echocardiogram Complete, (w Contrast, Strain and 3D if needed) (02/05/2020 8:14 AM CDT) Pathologist Sig [facility] Velocity Ratio (V1/V2) 0.52 m/s [facility] IVS,d 1.09 cm [facility] EF 55.17 % [facility] Ascending aorta 3.11 cm [facility] LVPWD,d 1.11 cm [facility] AoV Mean PG 11.76 mmHg [facility] AV LVOT peak gradient 6.36 mmHg [facility] MV mean gradient 2.17 mmHg [facility] MV valve area p 1/2 method 4.61 cm2 [facility] PV Pk Grad 7.81 mmHg [facility] E/A ratio 2.35 [facility] E wave decelartion time 164.60 msec HM [facility] LVOT Diam,S 1.93 cm HM [facility] LVOT area 2.92 cm2 HM [facility] LVOT Vmax 1.33 m/s HM [facility] LVOT VTI 0.28 m HM [facility] RVOT Vmax 1.00 m/s HM [facility] AoV Peak PG 26.50 mmHg HM [facility] PV Mean Grad 3.06 mmHg HM [facility] MV Peak E Noam 1.34 m/s HM [facility] MV stenosis pressure 1/2 time 47.73 ms HM [facility] MV Peak A Noam 0.57 m/s HM [facility] Ao Root Diameter 3.32 cm HM [facility] AoV Area, Vmax 1.43 cm2 HM [facility] AoV Area, VTI 1.77 cm2 HM [facility] AoV Vmax 2.57 m/s HM [facility] IVS/LVPW,2D 0.98 HM [facility] Left Atrium Dimension Anterior 3.53 cm HM [facility] LV,d 4.59 cm HM [facility] LV,s 3.28 cm HM [facility] PV VMAX 1.40 m/s HM [facility] PV VTI 0.26 m HM [facility] RVSP (TR) 70.13 mmHg HM [facility] TR Vpeak 3.88 mm/s HM [facility] MV E A ratio 2.37 HM [facility] TR pk grad 40.08 mmHg HM [facility] MR peak grad 6.46 mmHg HM [facility] PV Vmn 0.80 HM [facility] RVSP 70.13 mmHg HM [facility] Ao Root Diameter 3.32 cm HM [facility] LV SYS VOL 43.36 ml HM [facility] LV GILLIS VOL 96.73 ml HM [facility] LV SV Teich 2D 53.38 ml HM [facility] LV Vol s Teich PSAX 43.36 ml HM [facility] MV Vmax 1.27 m HM [facility] MV VTI Tips 0.28 m HM [facility] RVOT pk grad 4.00 mmHg HM [facility] AoV Vmn 1.55 HM [facility] LV FS Cube 2D 28.60 HM [facility] LV FS Teich 2D 28.60 HM [facility] AoV VTI 0.46 m HM [facility] LA Area d A4C 25.33 cm2 HM [facility] LV EF,2D 63.59 % HM [facility] MR Vmax 4.41 m/s HM [facility] MV AE ratio 0.42 HM [facility] LVOT Vmn 0.94 HM [facility] Aov area Vmn 1.74 cm2 HM [facility] LA Vol d MOD A4C 83.63 ml HM [facility] LVOT mean grad 3.87 mmHg HM [facility] MAX Pred HR 147.53 HM [facility] 85 of MPHR 125.40 HM [facility] Calc MPHR 147.53 bpm HM [facility] LV SV Cube 2D 61.41 ml HM [facility] LV vol d cube 2D 96.56 ml HM [facility] LV vol s cube 2D 35.15 ml HM [facility] MV Decel slope 8.15 m/s2 HM [facility] Pred Exer Dur R1 6.56 HM [facility] Pred METS R1 5.28 HM [facility] Specimen Narrative Performed At This result has an attachment that is no t available. Normal LV systolic function, ejection fraction 60-64%. HM [facility] Diastolic dysfunction is indeterminate. Bi-atrial enlargement. Mild-moderate tricuspid valve regurgitation. Moderate pulmonic valve regurgitation. Moderate pulmonary hypertension present. Performing Organization Address City/[facility]/ZIP Code Phon e Number [facility] [address] [place] [address], Lactic acid level, SEPSIS - Now and repeat 2x every 3 hours (02/04/2020 9:24 PM CDT)Only the most recent of3 resultswithin the time period is included. Pathologist Sig nature Lactic acid 2.2 0.5 - 2.2 mmol/L [facility] Specimen Blood Performing Organization Address City/[facility]/ZIP Code Phon e Number [facility] DEPARTMENT OF PATHOLOGY [address] [facility] [place] [address] AND GENOMIC MEDICINE [facility] [address] [facility] X [address] HOSPITAL Troponin (02/04/2020 9:24 PM CDT)Only the most recent of3 resultswithin the time period is included. Troponin <0.006 0.000 - 0.040 [facility] Comment: ng/mL [facility] In patients suspected of having a myocardial infarctio n, along with all other appropriate clinical measures and actions includ ing ECG and other diagnostics as appropriate, measure Ultra TnI at 0 hrs and at 3 hrs. Myocardial infarction VERY LIKELY The 0 hr TnI level is > 0.10 ng/mL Myocardial infarction LIKELY The 0 hr TnI level is > 0.04 ng/mL and 3 hr level is i ncreased or decreased by at least 0.020 ng/mL Myocardial infarction VERY UNLIKELY Both the 0 hr and 3 hr TnI levels <= 0.04 ng/mL(within normal limits) OR 0 hr is > 0.04 ng/mL and 3 hr is increased OR decreased by less than 0.020 ng/mL Specimen Blood Performing Organization Address [facility] Phon e Number [facility] DEPARTMENT OF PATHOLOGY [id number] [place] [address], T X [address] AND [facility] [id number] [place] [address], T X [address] HOSPITAL Blood culture, aerobic & anaerobic (02/04/2020 3:06 PM CDT)Only the most recent of2 resultswithin the time period is included. Blood culture No growth after 5 days of incubation. HO [facility] isolate Comment: HOSPITAL Specimen Information Specimen Source: Blood Specimen Site: Arm, left Specimen Blood - Arm, left Performing Organization Address [facility] Phon e Number [facility] DEPARTMENT OF PATHOLOGY AND [address] [place], [place] [address] [address] XR Chest 1 Vw Portable (02/04/2020 1:28 PM CDT) Specimen Narrative Performed At EXAMINATION: XR CHEST 1 VW PORTABLE [facility] CLINICAL HISTORY: SOB COMPARISON: Chest x-ray 05/13/2018 IMPRESSION: Single frontal view reveals a stable cardi omediastinal silhouette with right sided Port-A-Cath in place. Left basilar opacification has developed partially obscuring the he midiaphragm concerning for pneumonia and/or trace ef fusion. Right hemithorax is clear. Old right rib fracture again note d. The remainder of the examination is unchanged. [facility]-[id number] Procedure Note Interface, Radiology Results Incoming - 02/04/2020 1:38 PM CDT EXAMINATION: XR CHEST 1 VW PORTABLE CLINICAL HISTORY: SOB COMPARISON: Chest x-ray 05/13/2018 IMPRESSION: Single frontal view reveals a stable cardiomediastinal silhouette with right sided Port-A-Cath in place. Left basilar opacification has developed partially obscuring the hemidiaphragm concerning for pneumonia and/or trace effusion. Right hemithorax is clear. Old right rib fract ure again noted. The remainder of the examination is unchanged. [facility]-[id number] Performing Organization Address City/[facility]/ZIP Code Phon e Number [facility] [address] [place] [address] Partial thromboplastin time, activated (02/04/2020 1:10 PM CDT) PTT 51.9 (H) 23.0 - 36.0 [facility] Comment: [facility] PTT therapeutic range for unfractionated heparin is HOSPITAL 61.0-112.0 seconds which corresponds to Anti-Xa 0.3-0.7 U/ml. Specimen Blood Performing Organization Address [facility] Phon e Number [facility] DEPARTMENT OF PATHOLOGY [address] [place] [address] Prothrombin time with INR (02/04/2020 1:10 PM CDT) Prothrombin time 32.1 (H) 11.5 - 14.5 [facility] sec [facility] INR 3.1 [facility] Comment: AMISH [facility] International Normalized Ratio (INR) is a therapeu [facility] monitoring tool for patients who are stable on oral anticoagulant therapy. An INR of 2.0-3.0 is suggested for deep vein thrombosis/pulmonary embolism. 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 T waves: T waves: flattening and inverted Flattening: V1 Inverted: V3 B natriuretic peptide (02/04/2020 1:05 PM CDT) Pathologist Sig nature BNP 527 (H) 0 - 100 pg/mL [facility] Specimen Blood Performing Organization Address City/[facility] Phon e Number [facility] DEPARTMENT OF PATHOLOGY [address] [facility] X [address] AND GENOMIC MEDICINE [facility] [address] [place] [address] X [address] [facility] ECG 12 lead (02/04/2020 1:00 PM CDT) Pathologist Sig nature Ventricular rate 78 [facility] Atrial rate 122 [facility] QRSD interval 70 [facility] QT interval 374 [facility] QTC interval 426 [facility] QRS axis 1 31 [facility] T wave axis 41 [facility] EKG impression Atrial fibrillation-Nonspeci fic ST and T wave abnormality- Abnormal ECG-In automated comparison with ECG of 13-MAY-2018 13:27,-Nonspecific T wave abnormality now evident in Inferior leads-Nonspecific T wave abnormality now evident in Lateral [facility] MUSE leads- Specimen Narrative Performed At This result has an attachment that is no t available. Performing Organization Address City/[facility]/ZIP Code Phon e Number [facility] MUSE [address] [place] [address] Manual differential (12/03/2019 9:27 AM BEHAVIORAL SCIENTIST) Manual differential PERFORMED [facility] [facility] Neutrophils 8.0 (L) 39.0 - 69.0 [facility] Lymphocytes 81.0 (H) 25.0 - 45.0 [facility] Monocytes 11.0 (H) 0.0 - 10.0 % [facility] Eosinophils 0.0 0.0 - 5.0 % [facility] Basophils 0.0 0.0 - 1.0 % [facility] Nucleated RBC 1 /100 [facility] [place] Comment: [facility] NRBC results have been factored into the WBC count. [facility] No further calculation is needed. Reactive lymphocytes Moderate (A) [facility] Platelet slide Mkd decreased (A) [facility] Spherocytes Occasional [facility] Specimen Performing Organization Address City/[facility]/ZIP [facility] Phon e Number [facility] DEPARTMENT OF PATHOLOGY [address] [facility] X [phone] AND GENOMIC MEDICINE [facility] [address] [facility] X [address] [facility] URINALYSIS, COMPLETE, WITH REFLEX TO CULTURE (11/07/2019 7:59 AM BEHAVIORAL SCIENTIST) Color, UA YELLOW YELLOW [facility] [place] Appearance CLEAR CLEAR [facility] [place] Specific gravity, 1.013 1.001 - 1.035 [facility] urine [place] pH, urine 7.5 5.0 - 8.0 [facility] [place] Glucose, urine NEGATIVE NEGATIVE [facility] [place] Bilirubin, UA NEGATIVE NEGATIVE [facility] [place] Ketones, UA NEGATIVE NEGATIVE [facility] [place] Occult blood, urine NEGATIVE NEGATIVE [facility] [place] Protein, UA TRACE (A) NEGATIVE [facility] [place] Nitrite, UA NEGATIVE NEGATIVE [facility] [place] Leukocyte esterase, NEGATIVE NEGATIVE [facility] UA [place] WBC, UA NONE SEEN < OR = 5 /HPF [facility] [place] RBC, UA NONE SEEN < OR = 2 /HPF [facility] [place] Squamous epithelial NONE SEEN < OR = 5 /HPF [facility] cells, [facility]A [place] Bacteria, UA NONE SEEN NONE SEEN /HPF [facility] [place] Hyaline casts, UA NONE SEEN NONE SEEN /LPF [facility] [place] Specimen Resulting Agency Comment Performing Organization Information: Site ID: [id number] Name: [facility] Address: [address] [place] [address] Director: Bryce Drew Performing Organization Address City/State/ZIP Code Phon e Number [facility] [place] [address] [place] [address] Reflexive urine culture (11/07/2019 7:59 AM BEHAVIORAL SCIENTIST) Pathologist Sig nature Reflex NO CULTURE INDICATED MELODY [facility]INEZ Specimen Resulting Agency Comment Performing Organization Information: Site ID: [id number] Name: [facility] Address: [address] [place] [address] Director: Bryce Drew Performing Organization Address City/State/ZIP Code Phon e Number [facility] [address] [place] [address] after 09/20/2019 Advance Directives For more information, please contact: [phone] Type Date Recorded 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
--- OUTSIDE RECORDS SUMMARY | 2020-09-20 09:29 | XMS REPORT | Summary of Care ---
:1945 Author Organization [facility] Address [address] [place] [address] Care Team Providers Name Role Phone Lizamann Primary Care Provider Encounter Details Date Type Department Care Team Description 07/13/2020 Hospital Encounter [facility] Adrienne Jones FNP Arrived [facility] [address] [facility] [address] [place] [phone] [place] [address] [phone] Allergies Active Allergy Reactions Severity Noted Date Comments Meperidine Hcl Nausea and/or Vomiting 09/15/2015 documented as of this encounter (statuses as of 07/14/2020) Medications Medication Sig Dispensed Refills Start Date End Date Status amLODIPine (NORVASC) 2.5 Take 10 mg by 0 Active mg tablet mouth daily. atenolol (TENORMIN) 100 Take 100 mg by 0 Active mg tablet mouth 2 (two) times daily. atorvastatin (LIPITOR) 20 Take 20 mg by 0 Active mg tablet mouth at bedtime. FLUTICASONE PROPIONATE Inhale. 0 Active (FLUTICASONE INHALE) metFORMIN (GLUCOPHAGE) Take 500 mg by 0 Active 1,000 mg tablet mouth 2 (two) times daily with meals. OMEPRAZOLE ORAL Take 40 mg by 0 Active mouth. hydrochlorothiazide Take 12.5 mg by 0 Active (ESIDRIX) 12.5 mg capsule mouth daily. lisinopril Take 5 mg by 0 Active (PRINIVIL,ZESTRIL) 5 mg mouth daily. tablet cetirizine (ZYRTEC) 10 mg Take 10 mg by 0 Active tablet mouth as needed for Allergies. phenazopyridine Take 1 tablet 9 tablet 0 06/05/2016 Active (PYRIDIUM) 200 mg tablet by mouth 3 (three) times daily. amLODIPine 10 mg tablet Take 10 mg by 0 Active mouth daily. furosemide 20 mg tablet Take 20 mg by 0 Active mouth as needed. metFORMIN 500 mg tablet Take 500 mg by 0 Active mouth 2 (two) times daily with meals. rivaroxaban 15 mg tablet Take 15 mg by 0 Active mouth daily. Biotin 10 mg Tab Take 1 tablet 0 Active by mouth daily. docusate (STOOL SOFTENER) Take 200 mg by 0 Active 100 mg capsule mouth 2 (two) times daily. diphenhydrAMINE (BENADRYL Take 25 mg by 0 Active ALLERGY) 25 mg tablet mouth every 6 (six) hours as needed for Itching or Allergies. ondansetron 4 mg tablet Take 1 tablet 12 tablet 0 11/24/2017 Active by mouth every 8 (eight) hours as needed for Nausea and Vomiting (N/V). guaiFENesin (MUCINEX) 600 Take 1 tablet 20 tablet 0 01/05/2018 Active mg tablet by mouth every 12 (twelve) hours. benzocaine-menthol Take 1 Lozenge 12 Lozenge 0 01/05/2018 Active (CEPACOL SORE THROAT, by mouth every THEODORA-MEN,) lozenge 2 (two) hours as needed for 48 Hours for Sore throat. albuterol (VENTOLIN HFA) Inhale 2 Puffs 8.5 g 0 07/13/2020 Active 90 mcg/actuation every 6 (six) 0 inhalerIndications: SOB hours as needed (shortness of breath) for Shortness of Breath or Chest tightness for up to 30 days. benzonatate (TESSALON Take 1 capsule 42 capsule 0 07/13/2020 1 Active PERLES) 100 mg by mouth 3 0 capsuleIndications: URI, (three) times acute daily for 14 days. amoxicillin-clavulanate Take 1 tablet 20 tablet 0 07/13/2020 1 Active (AUGMENTIN) 875-125 mg by mouth 2 0 per tabletIndications: (two) times URI, acute daily for 10 days. documented as of this encounter (statuses as of 07/14/2020) Active Problems Problem Noted Date Post-op pain 09/05/2017 documented as of this encounter (statuses as of 07/14/2020) Immunizations Name Administration Dates Next Due Influenza Virus Vaccine 08/01/2017 Zoster(Zostavax)(Shingles) 11/01/2013 documented as of this encounter Social History Tobacco Use Types Packs/Day Years Used Date Never Smoker Smokeless Tobacco: Never Used Alcohol Use Drinks/Week oz/Week Comments No 0 Standard drinks or equivalent 0.0 Sex Assigned at Date Recorded Not on file COVID-19 Exposure Response Date Recorded In the last month, have you been in contact with No / Unsure 07/13/2020 11:41 AM CDT someone who was confirmed or suspected to have Coronavirus / COVID-19? documented as of this encounter Last Filed Vital Signs Not on filedocumented in this encounter Plan of Treatment Health Maintenance Due Date Last Done Comments HEPATITIS C (HCV) SCREEN 1945 Depression Screening 1957 DTaP,Tdap,and Td Vaccines (1 - Tdap) 1966 COLON CANCER SCREENING ANNUAL 1997 FIT/FOBT COLON CANCER SCREENING FIT DNA EVERY 1997 3 YEARS COLON CANCER SCREENING SIGMOIDOSCOPY 1997 EVERY 5 YEARS COLONOSCOPY 1997 Colorectal Cancer Screening 1997 Medicare Wellness Visit 2012 PNEUMOCOCCAL VACCINES 65+ (1 of 1 - 2012 PPSV23) Zoster Recombinant Vaccine (SHINGRIX) 12/27/2013 11/01/2013 (2 of 3) Breast Cancer Screening (MAMMOGRAM) 01/24/2018 01/24/2017, 01/10/2016, 04/20/2015 INFLUENZA VACCINE (#1) 2020 08/01/2017 Osteoporosis Screening 03/15/2026 03/15/2016 documented as of this encounter Implants Implanted Type Area Environmental Web Crawler Device Shelf Model / Identifier Expiration Serial / Lot Date [place] R+G Bone Cement With Gentamicin CEMENT Left: Anayeli 02/28/202123-2928-357-01 / Implanted: Qty: 2 on 09/05/2017 by Olayinka Rock MD at [facility] Knee [id number] / [id number] Ps Open Box Femoral - Left KNEE Left: [employer] [id number] / Implanted: Qty: 1 on 09/05/2017 by Olayinka Rock MD at [facility] Knee 1 [id number] / [id number] Ps Tibial Bearing KNEE Left: [employer] 05/30/2022 [id number] / Implanted: Qty: 1 on 09/05/2017 by Olayinka Rock MD at [facility] Knee [id number] / [id number] Series-A Standard Patella PATELLA Left: [employer]omet 07/01 [id number] / Implanted: Qty: 1 on 09/05/2017 by Olayinka Rock MD at [facility] Knee [id number] / [id number] Fixed Cruciate Tibial Plate PLATE Left: [employer]omet [id number] / Implanted: Qty: 1 on 09/05/2017 by Olayinka Rock MD at [facility] Knee 1 [id number] / [id number] documented as of this encounter Procedures Procedure Name Priority Date/Time Associated Diagnosis Comme nts XR CHEST 2 VW STAT 07/13/2020 12:51 PM SOB (shortness of Re sults for this CDT breath) procedure are in the URI, acute results section . documented in this encounter Results XR CHEST 2 VW (07/13/2020 12:51 PM CDT) Specimen Narrative Performed At HISTORY: Cough with chest tightening. PACS/VR/DOSE TECHNIQUE: PA and lateral views of the chest are ob[place]i [place]. Comparison made with 09/03/2017 study. FINDINGS: No acute pneumonia detected. No pneumothorax or pleural effusion or pulmonary congestion. Cardiothoracic ratio of appro ximately 14.3/26.2 cm is consistent with mild cardiomegaly. Port-A-Cath inserted through right internal jugular no terence with its tip at mid SVC level. Calcified granuloma in the left upper l víctor and old, healed fracture deformity in the mid axillary s egment of right sixth rib, thoracolumbar kyphoscoliosis with multil evel lumbar degenerative disc disease and compression fracture of uppe r plate of T12 noted, unchanged when compared with August 2017 study. CONCLUSIONS: No signs of acute cardiopulmonary disease . Procedure Note [facility], Radiant Results Inft User - 2019 1:03 PM CDT HISTORY: Cough with chest tightening. TECHNIQUE: PA and lateral views of the c hest are obtained. Comparison made with 09/03/2017 study. FINDINGS: No acute pneumonia detected. N o pneumothorax or pleural effusion or pulmonary congestion. Cardiothoracic ratio of approximately 14.3/26.2 cm is consistent with mild cardiomegaly. Port-A-Cath inserted through right inter nal jugular noted with its tip at mid SVC level. Calcified granuloma in th e left upper lung and old, healed fracture deformity in the mid axillary s egment of right sixth rib, thoracolumbar kyphoscoliosis with multil evel lumbar degenerative disc disease and compression fracture of uppe r plate of T12 noted, unchanged when compared with August 2017 study. CONCLUSIONS: No signs of acute cardiopul monary disease. Performing Organization Address City/State/Zipcode Phone Number PACS/VR/DOSE documented in this encounter Visit Diagnoses Diagnosis SOB (shortness of breath) Shortness of breath URI, acute Acute upper respiratory infections of un specified site documented in this encounter Additional Health Concerns Infection Onset Date Last Indicated Resolved Time COVID-19 Rule Out 07/13/2020 07/13/2020 documented as of this encounter Insurance Payer Benefit Plan / Subscriber ID Effective Dates Phone Addre ss Type Group [employer] [id number] 2020-Pres Medicare Adv PLUS PLUS ent HMO CLASSIC/VALUE documented as of this encounter
--- OUTSIDE RECORDS SUMMARY | 2020-09-20 09:29 | XMS REPORT | Summary of Care ---
:1945 Author Organization [facility] Address [address] [place] [id number] Care Team Providers Name Role Phone Logan Primary Care Provider Reason for Visit Reason Comments Ear Pain All symptoms started Sunday night. Right ear pain Shortness of Breath Diarrhea Other chest congestion Encounter Details Date Type Department Care Team Description 07/13/2020 Urgent Care [facility] Dorian Jones FNP [facility] [address] [place] [address] URI, acute (Primary Dx); Medicine - [place] Provider, [facility] Exposure to SARS-associated coronavirus; [address] [place] [address] SOB (short ness of breath); [place] [address] Allergies Active Allergy Reactions Severity Noted Date Comments Meperidine Hcl Nausea and/or Vomiting 09/15/2015 documented as of this encounter (statuses as of 07/13/2020) Medications Medication Sig Dispensed Refills Start Date [...] as of this encounter (statuses as of 07/13/2020) Active Problems Problem Noted Date Post-op pain 09/05/2017 documented as of this encounter (statuses as of 07/13/2020) Immunizations Name Administration Dates Next Due Influenza [...] of this encounter Last Filed Vital Signs Vital Sign Reading Time Taken Comments Blood Pressure 163/81 07/13/2020 11:48 AM CDT Pulse 72 07/13/2020 11:43 AM CDT Temperature 37.1 C (98.7 F) 07/13/2020 11:43 AM CDT Respiratory Rate 20 07/13/2020 11:43 AM CDT Oxygen Saturation 96% 07/13/2020 11:43 AM CDT Inhaled Oxygen Concentration - - Weight 81.6 kg (180 lb) 07/13/2020 11:43 AM CDT Height 170.2 cm (5' 7") 07/13/2020 11:43 AM CDT Body Mass Index 28.19 07/13/2020 11:43 AM CDT documented in this encounter Progress Notes Chiara Jones FNP - 07/13/2020 11:40 AM CDT Cc: Chief Complaint Patient presents with Ear Pain All symptoms started Sunday night. Right ear pain Shortness of Breath Diarrhea Other chest congestion Yuliya Kelley is a 74 year old female. Patient is cancer patient undergoing chemo, has a hx of atrial fibrillation and recurrent pneumonia.Here with URI symptoms and SOB, she also had diarrhea for one day that headache since subsided. Shortness of Breath Severity: Moderate Onset quality: Gradual Duration: 3 days Timing: Intermittent Progression: Unchanged Chronicity: New Context: URI Relieved by: Nothing Worsened by: Nothing Ineffective treatments: None tried Associated symptoms: chest pain (chest tightening ), cough and ear pain (pressure) Associated symptoms: no fever, no headaches and no wheezing Cough: Cough characteristics: Productive Sputum characteristics: Nondescript Severity: Moderate Onset quality: Gradual Timing: Intermittent Progression: Unchanged Chronicity: New Ear pain: Location: Right Severity: Mild Onset quality: Gradual Timing: Intermittent Progression: Unchanged Chronicity: New Risk factors: hx of cancer Allergies Yuliya is allergic to demerol [meperidine hcl]. Medications Outpatient Medications Prior to Visit Medication Sig Dispense Refill Biotin 10 mg Tab Take 1 tablet by mouth daily. docusate (STOOL SOFTENER) 100 mg capsule Take 200 mg by mouth 2 (two) times daily. furosemide 20 mg tablet Take 20 mg by mouth as needed. metFORMIN 500 mg tablet Take 500 mg by mouth 2 (two) times daily with meals. rivaroxaban 15 mg tablet Take 15 mg by mouth daily. lisinopril (PRINIVIL,ZESTRIL) 5 mg tablet Take 5 mg by mouth daily. amLODIPine (NORVASC) 2.5 mg tablet Take 10 mg by mouth daily. atenolol (TENORMIN) 100 mg tablet Take 100 mg by mouth 2 (two) times daily. atorvastatin (LIPITOR) 20 mg tablet Take 20 mg by mouth at bedtime. benzocaine-menthol (CEPACOL SORE THROAT, THEODORA-MEN,) lozenge Take 1 Lozenge by mouth every 2 (two) hours as needed for 48 Hours for Sore throat. 12 Lozenge 0 guaiFENesin (MUCINEX) 600 mg tablet Take 1 tablet by mouth every 12 (twelve) hours. 20 tablet 0 ondansetron 4 mg tablet Take 1 tablet by mouth every 8 (eight) hours as needed for Nausea and Vomiting (N/V). 12 tablet 0 amLODIPine 10 mg tablet Take 10 mg by mouth daily. diphenhydrAMINE (BENADRYL ALLERGY) 25 mg tablet Take 25 mg by mouth every 6 (six) hours as needed for Itching or Allergies. cetirizine (ZYRTEC) 10 mg tablet Take 10 mg by mouth as needed for Allergies. hydrochlorothiazide (ESIDRIX) 12.5 mg capsule Take 12.5 mg by mouth daily. phenazopyridine (PYRIDIUM) 200 mg tablet Take 1 tablet by mouth 3 (three) times daily. 9 tablet 0 OMEPRAZOLE ORAL Take 40 mg by mouth. FLUTICASONE PROPIONATE (FLUTICASONE INHALE) Inhale. metFORMIN (GLUCOPHAGE) 1,000 mg tablet Take 500 mg by mouth 2 (two) times daily with meals. No facility-administered medications prior to visit. Histories Past Medical History: Diagnosis Date Aneurysm Abdominal Aneurysm Atrial fibrillation Dr. Abraham - [employer] Diabetes mellitus Hyperlipidemia Hypertension Pancreatitis Post-operative nausea and vomiting Spinal stenosis Ulcer of esophagus Past Surgical History: Procedure Laterality Date BREAST BIOPSY CLAVICLE ORIF Left KNEE ARTHROSCOPY Bilateral SPINE SURGERY TOTAL KNEE ARTHROPLASTY Left 09/05/2017 Surgeon: Olayinka Garcia MD; Location: [facility] TUBAL LIGATION Social History Socioeconomic History Marital status: Spouse name: Not on file Number of children: Not on file Years of education: Not on file Highest education level: Not on file Occupational History Occupation: Retired Social Needs Financial resource strain: Not on file Food insecurity Worry: Not on file Inability: Not on file Transportation needs Medical: Not on file Non-medical: Not on file Tobacco Use Smoking status: Never Smoker Smokeless tobacco: Never Used Substance and Sexual Activity Alcohol use: No Alcohol/week: 0.0 standard drinks Drug use: No Sexual activity: Not on file Lifestyle Physical activity Days per week: Not on file Minutes per session: Not on file Stress: Not on file Relationships Social connections Talks on phone: Not on file Gets together: Not on file Attends episcopal service: Not on file Active member of club or organization: Not on file Attends meetings of clubs or organizations: Not on file Relationship status: Not on file Intimate partner violence Fear of current or ex partner: Not on file Emotionally abused: Not on file Physically abused: Not on file Forced sexual activity: Not on file Other Topics Concern Not on file Social History Narrative Not on file Family History Problem Relation Age of Onset Hypertension Mother Diabetes Father High cholesterol Father Hypertension Father Review of Systems Constitutional: Negative. Negative for fever. HENT: Positive for ear pain (pressure). Respiratory: Positive for cough and shortness of breath. Negative for apnea, choking, chest tightness and wheezing. Cardiovascular: Positive for chest pain (chest tightening ). Negative for palpitations and leg swelling. Gastrointestinal: Negative. Skin: Negative. Neurological: Negative. Negative for headaches. Endocrine: Endocrine negative Vital Signs BP (!) 163/81 | Pulse 72 | Temp 37.1 C (98.7 F) | Resp 20 | Ht 5' 7" (1.702 m) | Wt 180 lb (81.6 kg) | SpO2 96% | BMI 28.19 kg/m Physical Exam Vitals signs and nursing note reviewed. Constitutional: Appearance: She is well-developed. HENT: Head: Normocephalic. Right Ear: Hearing, tympanic membrane, ear canal and external ear normal. Left Ear: Hearing, tympanic membrane, ear canal and external ear normal. Nose: Nose normal. Right Sinus: No maxillary sinus tenderness or frontal sinus tenderness. Left Sinus: No maxillary sinus tenderness or frontal sinus tenderness. Mouth/Throat: Lips: [place]. Mouth: Mucous membranes are moist. Pharynx: Oropharynx is clear. No pharyngeal swelling, oropharyngeal exudate or posterior oropharyngeal erythema. Tonsils: No tonsillar exudate. Neck: Musculoskeletal: Normal range of motion and neck supple. Cardiovascular: Rate and Rhythm: Normal rate and regular rhythm. Heart sounds: Normal heart sounds. No murmur. No friction rub. No gallop. Pulmonary: Effort: Pulmonary effort is normal. No respiratory distress. Breath sounds: Decreased breath sounds present. No wheezing or rales. Chest: Chest wall: No tenderness. Abdominal: General: Bowel sounds are normal. There is no distension. Palpations: Abdomen is soft. Tenderness: There is no abdominal tenderness. Lymphadenopathy: Head: Right side of head: No submental, submandibular, tonsillar, preauricular or posterior auricular adenopathy. Left side of head: No submental, submandibular, tonsillar, preauricular or posterior auricular adenopathy. Cervical: No cervical adenopathy. Skin: General: Skin is warm and dry. Capillary Refill: Capillary refill takes less than 2 seconds. Coloration: Skin is not pale. Findings: No erythema or rash. Neurological: Mental Status: She is alert and oriented to person, place, and time. Assessment/Plan URI, acute (primary encounter diagnosis) Comment: Plan: benzonatate (TESSALON PERLES) 100 mg capsule, amoxicillin-clavulanate (AUGMENTIN) 875-125 mg per tablet, XR CHEST 2 VW, CANCELED: XR CHEST 2 VW Exposure to SARS-associated coronavirus Comment: Plan: COVID-19 (PCR MOLECULAR TESTING), COVID-19 (PCR MOLECULAR TESTING) - Quarantine until your COVID results are back Criteria met - Covid testing - pending. This test can take 2-3 days to be resulted. While the test is pending...Please socially isolate your self - do not go out to stores or out in public. We will contact you once we have the results. If you are negative - continue with symptomatic treatment. (see below) Patients who have positive results will be contacted by the health department to enforce quarantine measures and for additional community contact tracing. The Infection Control Department will also undertake evaluation of exposures in our healthcare facility. If symptoms worsen - please call your Primary Care Doctor - do not go into the clinic. Call first. SOB (shortness of breath) Comment: ventolin given for symptoms relief as needed. Plan: albuterol (VENTOLIN HFA) 90 mcg/actuation inhaler, XR CHEST 2 VW, CANCELED: XR CHEST 2 VW ER if with respiratory distress. Essential hypertension Comment: continue current regimen Plan: Watch blood pressure: check at least twice weekly, if consistently elevated , please follow up with PCP for possible medication management. Low salt Low caffeine diet Low alcohol Avoid tobacco products. Heart Healthy Exercise: total of 150 minutes of cardio: walking,swimming, hiking, biking every week. Heart healthy diet: low fat/carb/sugar diet; increase lean meat-chicken, turkey, fish; increase vegetables/fruits ( still be careful because elevated sugar level) ER--> worsening condition; cp, shortness of breath, dizziness, syncope, palpitations, n/v, diaphoresis. Plan of care, desired health behaviors, goals, and medication discussed with patient. Education resources provided and reviewed with AVS. Patient/guardian/family verbalized understanding & agrees to plan of care. This visit did not involve counseling and coordination that comprised more than 50% of the visit time. If applicable, the [facility] database was accessed to review any controlled substance prescription claims data. The [employer] prescription claims data in [employer] was reviewed to assess patient compliance with the medication treatment plan. Eleni Lobato MA - 07/13/2020 11:40 AM CDT Yuliya Kelley is a 74 year old female Chief Complaint Patient presents with Ear Pain All symptoms started Sunday night. Right ear pain Shortness of Breath Diarrhea Other chest congestion Vitals: 07/13/20 1143 BP: (!) 151/87 Pulse: 72 Resp: 20 Temp: 37.1 C (98.7 F) SpO2: 96% Weight: 180 lb (81.6 kg) Height: 5' 7" (1.702 m) [facility] [address] [place] [address] All Vitals taken, allergies and all medications reviewed, fall risk assessed. Pain level 0. Eleni Felder MA 07/13/2020 11:48 AM documented in this encounter Plan of Treatment Name Type Priority Associated Diagnoses Date/Ti me COVID-19 (PCR MOLECULAR LAB Routine Exposure to 07/01 11:39 AM CDT TESTING) SARS-associated coronavirus Name Type Priority Associated Diagnoses Order S chedule COVID-19 (PCR MOLECULAR LAB Routine Exposure to Expe cted: 07/13/2020, TESTING) SARS-associated Expires: coronavirus Health Maintenance Due Date Last Done Comments [...] of this encounter Implants Implanted Type Area Track Fitter Device Shelf Model / Identifier Expiration Serial / Lot Date Palacos R+G Bone Cement With Gentamicin CEMENT Left: Anayeli 02/28/2021 [id number] / Implanted: Qty: 2 on 09/05/2017 by Olayinka Rock MD at [facility] Knee 0 [id number] / [id number] Ps Open Box Femoral - Left KNEE Left: Biomet [id number] / Implanted: Qty: 1 on 09/05/2017 by Olayinka Rock MD at [facility] Knee 1 [id number] / [id number] Ps Tibial Bearing KNEE Left: Biomet 05/30/2022 1 [id number] / Implanted: Qty: 1 on 09/05/2017 by Olayinka Rock MD at [facility] Knee 1 [id number] / [id number] Series-A Standard Patella PATELLA Left: Biomet 07/01 [id number] / Implanted: Qty: 1 on 09/05/2017 by Olayinka Rock MD at [facility] Knee 1 [id number] / [id number] Fixed Cruciate Tibial Plate PLATE Left: Biomet [id number] / Implanted: Qty: 1 on 09/05/2017 by Olayinka Rock MD at [facility] Knee 1 [id number] / [id number] documented as of this encounter Results XR CHEST 2 VW [...] documented in this encounter Visit Diagnoses Diagnosis URI, acute - Primary Acute upper respiratory infections of un specified site Exposure to SARS-associated coronavirus SOB (shortness of breath) Shortness of breath Essential hypertension Unspecified essential hypertension documented in this encounter Additional Health Concerns Infection Onset Date Last Indicated Resolved Time COVID-19 Rule Out 07/13/2020 07/13/2020 documented as of this encounter Insurance Payer Benefit Plan / Subscriber ID Effective Dates Phone Addre ss Type Group [employer] [place] [employer] [place] [id number] 2020-Pres Medicare Adv PLUS PLUS ent HMO CLASSIC/VALUE documented as of this encounter
--- OUTSIDE RECORDS SUMMARY | 2020-09-20 09:29 | XMS REPORT | Summary of Care ---
:1945 Author Organization [facility] Address [address] [place] [address] Care Team Providers Name Role Phone Logan Primary Care Provider Reason for Visit Reason Comments Assessment Encounter Details Date Type Department Care Team Description 07/14/2020 Telephone [facility] Family Medicine Provider, [facility] Urgent Assessment - [address] [place] [address] Allergies Active Allergy Reactions Severity Noted Date Comments Meperidine Hcl Nausea and/or Vomiting 09/15/2015 documented as of this encounter (statuses as of 07/16/2020) Medications Medication Sig Dispensed Refills Start Date [...] as of this encounter (statuses as of 07/16/2020) Active Problems Problem Noted Date Post-op pain 09/05/2017 documented as of this encounter (statuses as of 07/16/2020) Immunizations Name Administration Dates Next Due Influenza [...] Signs Not on filedocumented in this encounter Miscellaneous Notes Telephone Encounter - Estella Sánchez RN - 07/16/2020 8:58 AM CDTPer patient, oncology prescribed Zofran which has relieved her nausea. No other questions or concerns at this time. elephone Encounter - Rachel Hill - 07/14/2020 3:45 PM CDTPatient is calling and is requesting to speak to The nurse in regards to the medication we sent forher making her sick amoxicillin-clavulanate (AUGMENTIN) 875-125 mg per tablet and is reqeusting an alternative, please call patient back in regards to this encounter. documented in this encounter Plan of Treatment Health [...] 01/24/2017, 01/10/2016, 04/20/2015 INFLUENZA VACCINE (#1) 2020 07/04/2019, 08/01/2017, 09/06/2015 Osteoporosis Screening 03/15/2026 03/15/2016 documented as of this encounter Implants Implanted Type Area Press Tender Long Goods Device Shelf Model / Identifier Expiration Serial / Lot Date Palacos R+G Bone Cement With Gentamicin CEMENT Left: Anayeli 02/28/[id number] / Implanted: Qty: 2 on 09/05/2017 by Olayinka Rock MD at [facility] Knee 0 [id number] Ps Open Box Femoral - Left KNEE Left: Biomet [id number] / Implanted: Qty: 1 on 09/05/2017 by Olayinka Rock MD at [facility] Knee 1 [id number] / [id number] Ps Tibial Bearing KNEE Left: Biomet 05/30/2022 1 [id number] / Implanted: Qty: 1 on 09/05/2017 by Olayinka Rock MD at [facility] Knee 1 [id number] / [id number] Series-A Standard Patella PATELLA Left: Biomet 07/01 [id number] / Implanted: Qty: 1 on 09/05/2017 by Olayinka Rock MD at [facility] Knee 1 [id number] / [id number] Fixed Cruciate Tibial Plate PLATE Left: Biomet [id number] / Implanted: Qty: 1 on 09/05/2017 by Olayinka Rock MD at [facility] Knee 1 [id number] / [id number] documented as of this encounter Results Not on filedocumented in this encounter Additional Health Concerns Infection Onset Date Last Indicated Resolved Time COVID-19 Rule Out 07/13/2020 07/13/2020 07/14/2020 2: 56 AM CDT documented as of this encounter Insurance Payer Benefit Plan / Subscriber ID Effective Dates Phone Addre ss Type Group [employer] [place] [id number] 2017-Pres [place] t H[place] PLUS [employer] [place] [employer] [place] [id number] 2020-Pres Medicare Adv PLUS PLUS ent HMO CLASSIC/VALUE documented as of this encounter
--- OUTSIDE RECORDS SUMMARY | 2020-09-20 09:29 | XMS REPORT | Continuity of Care Document ---
:1945 Author Organization [facility] t Address [facility] [address] [place] [address] Care Team Providers Name Role Phone Hans VALENZUELA Primary Care Physician Cris HATHAWAY Attending Clinician Unavailable Yahir HATHAWAY Attending Clinician Unavailable Roberto Sigala MD Attending Clinician Eliz HATHAWAY Attending Clinician Unavailable Singer FLORES Attending Clinician Maryse VALENZUELA Attending Clinician Thuan ELLIS Attending Clinician Doctor Unassigned, Name Attending Clinician Unavailable Taryn BRANTLEY Attending Clinician Unavailable Provider, Urgent Care Attending Clinician Unavailable Robert MARTINEZP Attending Clinician Jean-Pierre RN Attending Clinician Unavailable Re RN Attending Clinician Unavailable Quique BRANTLEY Attending Clinician Unavailable Elisabeth BRANTLEY Attending Clinician Unavailable Daily Truong PA-C Attending Clinician Kassandra Ragland MD Attending Clinician Goyo VALENZUELA Attending Clinician Stephanie HATHAWAY Attending Clinician Unavailable [facility] Attending Clinician Unavailable Moshe Resendiz MD Attending Clinician Maryse VALENZUELA Admitting Clinician KAIDEN Admitting Clinician Unavailable GOYO Admitting Clinician Unavailable Payers Payer Name Policy Type Policy Effective Expiration Source Number Date Date TEXANPLUSTEXANPLUS [id number] 2017 Gustavo bean [id number] 2017-Pr 00:00:00 M astrid zepedaentHMO Problems Condition Condition Condition Status Onset Resolution Last Treating Co mments Source Name Details Category Date Date Treatment Clinician Date Malignant Malignant Problem Active Gordon amie tumor of Tumor of 7-15 Family ovary Ovary 00:00: Practic 00 e Diabetes Diabetes Problem Active Licea ge mellitus Mellitus 7-15 Family 00:00: Practic 00 e Hyperchole Hyperchole Problem Active [facility] sterolemia sterolemia 7-15 Fa felipe 00:00: Practic 00 e Neuropathy Neuropathy Problem Active [facility] ill[facility] 7-15 Family 00:00: Practic 00 e Essential Essential Problem Active Gordon lezamae hypertensi Hypertensi 7-15 Fa felipe on on 00:00: Practic 00 e Shortness Shortness Disease Active [facility] st[facility] of breath of breath 5-06 Meth hao 00:00: st 00 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 00:00: st of of 00 para-aorti para-aorti c lymph c lymph node node 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 9-23 Meth hao neoplasm neoplasm 00:00: st of of 00 retroperit retroperit van van lymph node lymph node Ovarian Ovarian Disease Active 2017-10 [place] cancer cancer 2-10 Methodi 00:00: st 00 Ovarian Ovarian Disease Active 2017-10 Overview: Anastacia ocampo cancer on cancer on 10-09 Added Meth hao left left 00:00: automatic st 00 ally from request for surgery [id number] Liver Liver Disease Active 2017-10 [place] metastasis metastasis 1-02 Me thodi 00:00: st 00 Acute Acute Disease Active [place] dyspnea dyspnea 8-13 Methodi 00:00: st 00 Disorienta Disorienta Disease Active [place] tion tion 7-06 [facility] 00:00: st 00 Confusion Confusion Disease Active [facility] with with 7-06 [facility] non-focal non-focal 00:00: st neuro exam neuro exam 00 Hypomagnes Hypomagnes Disease Active [place] emia emia 04-05 Method[facility] 00:00: st 00 Hyponatrem Hyponatrem Disease Active [place] ia ia 04-05 Methodi 00:00: st 00 Chronic Chronic Disease Active [place] atrial atrial 04-05 [facility] fibrillati fibrillati 00:00: st on on 00 Abnormal Abnormal Disease Active [place] brain MRI brain MRI 04-05 Meth hao 00:00: st 00 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 04-05 Meth hao 00:00: st 00 Chest pain Chest pain Disease Active [facility] [place] 7 [facility]i 00:00: st 00 Anemia Anemia Disease Active [place] associated associated 6 Me [facility] with with 00:00: st chemothera chemothera 00 py py Ascites, Ascites, Disease Active [place] malignant malignant 5-02 Meth hao 00:00: st 00 Malignant Malignant Disease Active [facility] neoplasm neoplasm 4-20 Method i of right of right 00:00: st ovary ovary 00 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 4-20 Method[facility] 00:00: st 00 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 4-20 Meth hao neoplasm neoplasm 00:00: st of liver of liver 00 Diverticul Diverticul Disease Active [place] ar disease ar disease 3 Me thodi 00:00: st 00 Aortic Aortic Disease Active [place] aneurysm aneurysm 306 Method i 00:00: st 00 Blood in Blood in Disease Active [place] urine urine 12-04 Methodi 00:00: st 00 Hypertensi Hypertensi Disease Active [place] on on 12-04 Methodi 00:00: st 00 Hyperlipid Hyperlipid Disease Active [place] emia emia 12-04 Methodi 00:00: st 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 00:00: st vaginitis vaginitis 00 Wears Wears Disease Active [place] glasses glasses Methodi st Dental Dental Disease Active [place] crowns crowns [facility] status status st Use of Use of Disease Active [place] cane as cane as [facility] ambulatory ambulatory st aid aid Allergies, Adverse Reactions, Alerts Allergy Allergy Status Severity Reaction(s) Onset Inactive Treating Comm ents Source Name Type Date Date Clinician Tramadol Propensi Active GI Other [place] ty to Intolerance, 3-06 reaction( M ethodi adverse Other (See 00:00: s): GI st reaction Comments) 00 Intoleran s to ce drug Meperidi Propensi Active GI 2014-10 "KNOCK ME [facility] ston ne ty to Intolerance, 2-16 OUT" & Meth hao adverse Other (See 00:00: NAUSEA st reaction Comments) 00 "KNOCK ME s to OUT" & drug NAUSEA Sulfamet Propensi Active GI 2014-10 Other [place] hoxazole ty to Intolerance, 0-05 reaction( Methodi -Trimeth adverse Other (See 00:00: s): GI st oprim reaction Comments) 00 Intoleran s to ce drug Demerol Allergy Active Severe Other [place] to Family substanc Practic e e Family History Family Member Diagnosis Comments Start Date Stop Date Source Natural mother Colon cancer [facility] Social History Social Habit Start Date Stop Date Quantity Comments Source Sex Assigned At [facility] ethodist Tobacco use and 2020-08-18 2020-08-18 Never used [facility] ethodist exposure 00:00:00 00:00:00 Alcohol intake 2020-08-18 2020-08-18 Current [facility] thodist 00:00:00 00:00:00 non-drinker of alcohol (finding) Smoking Status Start Date Stop Date Source Never smoker [facility] Medications Ordered Filled Start Stop Current Ordering Indication Dosage Frequency Signature Comments Components Source Medication Medication Date Date Medication? Clinician (SIG) Name Name polyethylen 2019-10 Yes 17g Q24H Take 17 g [place] e glycol 1-18 by mouth Methodi (MIRALAX) 10:48: daily as st 17 gram 10 needed for packet constipati on. rivaroxaban 2019-10 Yes 15mg QD Take 15 mg [place] (XARELTO) 1-18 by mouth Method i 15 mg 10:48: daily. st tablet 10 ALPRAZolam 2019-10 2020- No .5mg Take 1 [place] (Xanax) 0.5 1-13 11-13 tablet Metho di MG tablet 00:00: 23:59 (0.[address] 00 :00 total) by mouth once for 1 dose. Take 30 min prior to scan. magnesium 2019-1 Yes 1{tbl} Q.5D Take 1 [place] oxide 400 0-21 tablet by Metho di mg 00:00: mouth 2 st magnesium 00 (two) tablet times a day. albuterol 2019- 2020- No 2{puff} Q6H Inhale 2 [place] (PROAIR 0-13 11-12 puffs Methodi HFA) 90 00:00: 23:[address] mcg/actuati 00 :00 (six) on inhaler hours. benzonatate 2019-10 2020- No 100mg Q.[id number] Take 100 [place] (TESSALON) 0-13 10- [id number] mg by M ethodi 100 MG 00:00: 23:[address] capsule 00 :00 (three) times a day. amoxicillin 2019- 2020- No 1{tbl} Q.5D Take 1 [place] -pot 0-13 07- tablet by Methodi clavulanate 00:00: 23:[address] (AUGMENTIN) 00 :00 (two) 875-125 mg times a per tablet day. For 10 days (finish on 07/23) niraparib 2019-0 Yes 200mg QD Take 200 [place] (Zejula) 8-14 mg by Methodi 100 mg 00:00: mouth st capsule 00 daily. ciprofloxac 2019-0 2020- No 500mg Q.5D Take 1 [place] in (Cipro) 8-17 tablet Method i 500 MG 00:00: 23:59 ([address] tablet 00 :00 total) by mouth 2 (two) times a day for 7 days. nitrofurant 2020-0 2020- No 100mg Q.5D Take 1 [place] oin, 8-05 08-10 capsule Methodi macrocrysta 00:00: 00:00 ([address] l-monohydra 00 :00 total) by te, mouth 2 (Macrobid) (two) 100 MG times a capsule day for 7 days. ALPRAZolam 2020-0 2020- No .5mg Take 1 [place] (Xanax) 0.5 04-30- tablet Metho di MG tablet 00:00: 23:59 (0.[address] 00 :00 total) by mouth once for 1 dose. Take 30 min prior to scan. ondansetron Yes Take 1 [place] (Zofran) 8 7- tablet by Meth hao MG tablet 00:00: mouth st 00 every 8 hours for 3 days after infusion, then as needed. ALPRAZolam 2019- No .5mg Take 1 [place] (Xanax) 0.5 02-16- tablet Metho di MG tablet 00:00: 23:59 (0.[address] 00 :00 total) by mouth once for 1 dose. Take 30 min prior to scan. furosemide 2019- No 20mg Q.5D Take 1 [place] (LASIX) 20 02-05- tablet (20 Me [facility] mg tablet 00:00: 23:59 mg total) st 00 :00 by mouth 2 (two) times a day for 30 days. Take 1 tab daily starting 02/09/2020 doxycycline 2019-2019- No 100mg Q.5D Take 1 [place] (VIBRAMYCIN 02-05- capsule Meth hao ) 100 MG 00:00: 23:59 ([address] capsule 00 :00 total) by mouth 2 (two) times a day for 5 days. atorvastati 2019- No 20mg QD Take 20 mg Can n (LIPITOR) 01-25 by mouth Met hodi 20 mg 00:00: 23:[address] tablet 00 :00 gabapentin Yes Neuropathy 100mg Q.[id number] Take 1 Can (NEURONTIN) 4- due to [id number] capsule Methodi 100 mg 00:00: chemotherap 3D (100 mg s t capsule 00 eutic drug total) by (HCC) mouth 3 (three) times a day. ondansetron 2020- No Take 1 [place] (ZOFRAN) 8 12-17- tablet by Met hodi MG tablet 00:00: 00:[address] 00 :00 every 8 hours for 3 days after infusion, then as needed. gabapentin 2020- No Neuropathy 100mg Q.[id number] Take 1 Can (NEURONTIN) 12-07 04- due to [id number] capsule Methodi 100 mg 00:00: 00:00 chemotherap 3D ([address] capsule 00 :00 eutic drug total) by (HCC) mouth 3 (three) times a day. LORAZepam 2019- No .5mg Q24H Take 1 [place] (ATIVAN) 11-12 04-30 tablet Methodi 0.5 MG 00:00: 23:59 (0.[address] tablet 00 :00 total) by mouth daily as needed (prior to chemo for nausia / anxiety) for up to 5 doses. ondansetron 2019- No Take 1 [place] [facility] (ZOFRAN) 8 11-12 tablet by Met hodi MG tablet 00:00: 00:[address] 00 :00 every 8 hours for 3 days after infusion, then as needed. ALPRAZolam 2019- No .5mg Take 1 [place] (XANAX) 0.5 10-08 tablet Metho di MG tablet 00:00: 00:00 (0.[address] 00 :00 total) by mouth once for 1 dose. Take 30 min prior to scan. ALPRAZolam No TAKE 1 [place] (XANAX) 0.5 10-08- TABLET BY Me thodi MG tablet 00:00: 00:[address] 00 :00 NEEDED FOR ANXIETY FOR UP TO ONE DOSE. TAKE 30 MINUTES PRIOR TO SCAN ALPRAZolam 2018-10 TAKE 1 [place] (XANAX) 0.5 11-23 TABLET BY Me [facility] MG tablet 00:00: 00:00 MOUTH ONCE s t 00 :00 FOR 1 DOSE TAKE 30 MINUTES PRIOR TO SCAN gabapentin 2018-10- No Neuropathy TAKE 1 [place] (NEURONTIN) 0 03-09 due to CAPSULE BY Methodi 100 mg 00:00: 00:[address] capsule 00 :00 eutic drug THREE (HCC) TIMES DAILY ALPRAZolam TAKE 1 [place] (XANAX) 0.5 05-29 TABLET BY Me thodi MG tablet 00:00: 00:00 MOUTH ONCE s t 00 :00 FOR 1 DOSE TAKE 30 MINUTES PRIOR TO SCAN ondansetron No Take 1 [place] (ZOFRAN) 8 5-17 02-12 tablet by Met hodi MG tablet 00:00: 00:[address] 00 :00 every 8 hours for 3 days after infusion, then as needed. lisinopril 2018-0 Yes 5mg QD Take 5 mg [place] (PRINIVIL,Z 1-30 by mouth Meth hao ESTRIL) 5 00:00: every st mg tablet 00 morning. amLODIPine 2018-0 Yes 10mg QD Take 10 mg [place] (NORVASC) 1-24 by mouth Method i 10 mg 00:00: daily. st tablet 00 metFORMIN 2018-0 Yes 500mg Q.5D Take 500 [facility] (GLUCOPHAGE 1-19 mg by Methodi ) 500 mg 00:00: mouth 2 st tablet 00 (two) times a day with meals. atenolol 2018-0 Yes 100mg Q.5D Take 100 [place] (TENORMIN) 1-09 mg by Methodi 100 MG 00:00: mouth 2 st tablet 00 (two) times a day. albuterol albuterol No albuterol [place] sulfate HFA sulfate HFA sulfate Family 90 90 HFA 90 Practic mcg/actuati mcg/actuati mcg/actuat e on aerosol on aerosol ion inhaler inhaler aerosol inhaler alprazolam alprazolam No alprazolam [facility] 0.5 mg 0.5 mg 0.5 mg Family tablet tablet tablet Practic e amlodipine amlodipine No amlodipine [facility] 10 mg 10 mg 10 mg Family tablet Take tablet Take tablet Practic 1 tablet 1 tablet Take 1 e every day every day tablet by oral by oral every day route. route. by oral route. amoxicillin amoxicillin No [facility] 500 500 n 500 Family mg-potassiu mg-potassiu mg-potassi Practic m m um e clavulanate clavulanate clavulanat 125 mg 125 mg e 125 mg tablet tablet tablet amoxicillin amoxicillin No [facility] [phone] n 875 Family mg-potassiu mg-potassiu mg-potassi Practic m m um e clavulanate clavulanate clavulanat 125 mg 125 mg e 125 mg tablet tablet tablet atenolol atenolol No atenolol [place] amie 100 mg 100 mg 100 mg Family tablet tablet tablet Practic e atorvastati atorvastati No atorvastat [place] n 20 mg n 20 mg in 20 mg Famil y tablet tablet tablet Practic e atorvastati atorvastati No 1 Q1D atorvastat [place] n 40 mg n 40 mg in 40 mg Famil y tablet Take tablet Take tablet Practic 1 tablet 1 tablet Take 1 e every day every day tablet by oral by oral every day route. route. by oral route. ciprofloxac ciprofloxac No ciprofloxa [place] in 500 mg in 500 mg shavonne 500 mg Family tablet tablet tablet Practic e doxycycline doxycycline No doxycyclin [place] hyclate 100 hyclate 100 e hyclate Family mg capsule mg capsule 100 mg P ractic capsule e Flovent HFA Flovent HFA No Flovent [place] 110 110 HFA 110 Family mcg/actuati mcg/actuati mcg/actuat Practic on aerosol on aerosol ion e inhaler inhaler aerosol inhaler Fluzone Fluzone No Fluzone [place] e High-Dose High-Dose High-Dose Family Practi c (PF) 180 (PF) 180 (PF) 180 e mcg/0.5 mL mcg/0.5 mL mcg/0.5 mL intramuscul intramuscul intramuscu ar syringe ar syringe lar syringe Fluzone Fluzone No Fluzone [place] High-Dose High-Dose High-Dose Family Quad Quad Quad Practic e (PF) 240 (PF) 240 (PF) 240 mcg/0.7 mL mcg/0.7 mL mcg/0.7 mL IM syringe IM syringe IM syringe furosemide furosemide No furosemide [place] 20 mg 20 mg 20 mg Family tablet Take tablet Take tablet Practic 1 tablet 1 tablet Take 1 e every day every day tablet by oral by oral every day route as route as by oral needed. needed. route as needed. gabapentin gabapentin No 1capsul TID gabapentin [facility] 100 mg 100 mg e(s) 100 mg Family capsule capsule capsule Practi c Take 1 Take 1 Take 1 e capsule 3 capsule 3 capsule 3 times a day times a day times a by oral by oral day by route. route. oral route. lisinopril lisinopril No lisinopril [place] 5 mg tablet 5 mg tablet 5 mg F amily Take 1 Take 1 tablet Practic tablet tablet Take 1 e every day every day tablet by oral by oral every day route. route. by oral route. lorazepam lorazepam No lorazepam [facility] 0.5 mg 0.5 mg 0.5 mg Family tablet tablet tablet Practic e metformin metformin No metformin [facility] 500 mg 500 mg 500 mg Family tablet Take tablet Take tablet Practic 1 tablet 1 tablet Take 1 e twice a day twice a day tablet by oral by oral twice a route. route. day by oral route. ofloxacin ofloxacin No ofloxacin [facility] 0.3 % ear 0.3 % ear 0.3 % ear Family drops drops drops Practic e ondansetron ondansetron No 1 Q8H ondansetro [facility] 8 mg 8 mg n 8 mg Family disintegrat disintegrat disintegra Practic ing tablet ing tablet ting e Place 1 Place [address] 1 every 8 every 8 tablet hours by hours by every 8 translingua translingua hours by l route as l route as translingu needed for needed for al route 2 days. 2 days. as needed for 2 days. [facility] HCl 8 mg n HCl 8 mg F amily tablet tablet tablet Practic e prochlorper prochlorper No prochlorpe [facility] azine azine razine Family maleate 10 maleate 10 maleate 10 Practic mg tablet mg tablet mg tablet e tramadol tramadol No tramadol [place] amie 25mg as 25mg as 25mg as Family needed needed needed Practic e tramadol 50 tramadol 50 No tramadol [place] mg tablet mg tablet [address] tablet Practic e Xarelto 10 Xarelto 10 No 1 Q1D Xarelto 10 [place] mg tablet mg tablet mg tablet Family Take 1 Take 1 Take 1 Practic tablet tablet tablet e every day every day every day by oral by oral by oral route. route. route. Xarelto 15 Xarelto 15 No Xarelto 15 [place] mg tablet mg tablet mg tablet Family Practic e Vital Signs Vital Name Observation Time Observation Value Comments Source Height 2020-04-14 00:00:00 67 [in_i] [facility] BMI (Body Mass 2020-04-14 00:00:00 26.2 kg/m2 Susan patel Family Index) Practice Body Weight 2020-04-14 00:00:00 167 [lb_av] [facility] Systolic blood 2020-08-18 10:47:00 159 mm[Hg] Gustavo bean [facility] pressure Diastolic blood 2020-08-18 10:47:00 74 mm[Hg] [place] on [facility] pressure Heart rate 2020-08-18 10:47:00 69 /min Can [facility] Body height 2020-08-18 10:47:00 170.2 cm Can [place] Body weight 2020-08-18 10:47:00 81.194 kg Can Paezist BMI 2020-08-18 10:47:00 28.04 kg/m2 Can [facility] Body temperature 2020-07-22 15:26:30 36.22 Lauren [place] [facility] Respiratory rate 2020-07-22 15:26:30 20 /min Anastacia [place] Oxygen saturation in 2020-07-22 15:26:30 97 /min Can [place] Arterial blood by Pulse oximetry Procedures Procedure Date / Time Performing Clinician Source Performed PET CT SKULL BASE TO MID 2020-08-18 15:05:30 Debbie Sigala THIGH POC GLUCOSE 2020-08-18 13:09:00 Debbie Sigala MAGNESIUM LEVEL 2020-08-18 11:26:00 Debbie Sigala COMPREHENSIVE METABOLIC 2020-08-18 11:26:00 Debbie Sigala PANEL CANCER ANTIGEN 125 2020-08-18 11:26:00 Debbie Sigala HC COMPLETE BLD COUNT 2020-08-18 11:26:00 Debbie Sigala W/AUTO DIFF ESTIMATED GFR 2020-08-18 11:26:00 Debbie Sigala SMEAR REVIEW 2020-08-18 11:26:00 Debbie Sigala TRANSFUSE RED BLOOD CELLS 2020-07-22 15:47:08 Debbie Sigala ed TRANSFUSE RED BLOOD CELLS 2020-07-21 12:35:33 Debbie Sigala ed TYPE AND SCREEN 2020-07-20 14:17:00 Debbie Sigala PREPARE RBC 2020-07-20 14:17:00 Debbie Sigala CANCER ANTIGEN 125 2020-07-19 07:44:00 Debbie Sigala CBC WITH PLATELET AND 2020-07-19 07:44:00 Debbie Sigala DIFFERENTIAL COMPREHENSIVE METABOLIC 2020-07-19 07:44:00 Debbie Sigala PANEL MAGNESIUM LEVEL 2020-07-19 07:44:00 Debbie Sigala CBC MORPHOLOGY 2020-07-19 07:44:00 Debbie Sigala MAGNESIUM LEVEL 2020-06-23 10:04:00 Debbie Sigala CANCER ANTIGEN 125 2020-06-21 13:21:00 Debbie Sigala COMPREHENSIVE METABOLIC 2020-06-21 13:21:00 Debbie Sigala PANEL CBC WITH PLATELET AND 2020-06-21 13:21:00 Debbie Sigala DIFFERENTIAL PET CT SKULL BASE TO MID 2020-05-07 10:44:21 Debbie Sigala THIGH MAGNESIUM LEVEL 2020-05-07 10:23:00 Debbie Sigala COMPREHENSIVE METABOLIC 2020-05-07 10:23:00 Debbie Sigala PANEL HC COMPLETE BLD COUNT 2020-05-07 10:23:00 Debbie Sigala W/AUTO DIFF CANCER ANTIGEN 125 2020-05-07 10:23:00 Debbie Sigala ESTIMATED GFR 2020-05-07 10:23:00 Debbie Sigala POC GLUCOSE 2020-05-07 08:32:00 Debbie Sigala URINE CULTURE 2020-05-05 00:00:00 Debbie Sigala URINALYSIS, AUTOMATED WITH 2020-05-05 00:00:00 Debbie Sigala MICROSCOPY TRANSFUSE RED BLOOD CELLS 2020-03-25 15:38:19 Debbie Sigala ed TRANSFUSE RED BLOOD CELLS 2020-03-25 12:52:31 Debbie Sigala ed PREPARE RBC 2020-03-24 09:47:00 Debbie Sgiala CANCER ANTIGEN 125 2020-03-20 08:27:00 Debbie Sigala [facility] COMPREHENSIVE METABOLIC 2020-03-20 08:27:00 Debbie Sigala [facility] PANEL CBC WITH PLATELET AND 2020-03-20 08:27:00 Debbie Sigala DIFFERENTIAL COMPREHENSIVE METABOLIC 2020-02-26 09:40:00 Debbie Sigala [facility] PANEL HC COMPLETE BLD COUNT 2020-02-26 09:40:00 Debbie Sigalaist W/AUTO DIFF ABSOLUTE NEUTROPHIL COUNT 2020-02-26 09:40:00 Debbie Sigala ed MAGNESIUM LEVEL 2020-02-26 09:40:00 Debbie Sigala ESTIMATED GFR 2020-02-26 09:40:[address] SKULL BASE TO MID 2020-02-24 16:41:20 Kanwal Truong [facility] THIGH Daily POC GLUCOSE 2020-02-24 14:26:00 Kanwal Truong Meth odist Daily POC GLUCOSE 2020-02-06 11:28:00 Courtney Bernal Me thodist POC GLUCOSE 2020-02-06 07:48:00 Courtney Bernal Me thodist HC COMPLETE BLD COUNT 2020-02-06 06:20:00 Courtney Bernal [facility] W/AUTO DIFF BASIC METABOLIC PANEL 2020-02-06 06:20:00 Courtney Bernal [facility] ESTIMATED GFR 2020-02-06 06:20:00 Courtney Bernal Me thodist POC GLUCOSE 2020-02-05 21:09:00 Courtney Bernal Me [facility]ist POC GLUCOSE 2020-02-05 17:15:00 Courtney Bernal Me thodist POC GLUCOSE 2020-02-05 11:18:00 Courtney Bernal Me thodist POC GLUCOSE 2020-02-05 08:47:00 Courtney Bernal Me thodist TTE COMPLETE, WO CONTRAST, 2020-02-05 08:14:51 GoyoVeronicaCourtney Can [place] WO DOPPLER HC COMPLETE BLD COUNT 2020-02-05 05:05:00 Courtney Bernal W/AUTO DIFF BASIC METABOLIC PANEL 2020-02-05 05:05:00 Courtney Bernal ESTIMATED GFR 2020-02-05 05:05:00 ClaudiaмарияCourtney torres Me thodist LACTIC ACID LEVEL, SEPSIS 2020-02-04 21:24:00 John Ragland - NOW AND REPEAT 2X EVERY 3 HOURS TROPONIN 2020-02-04 21:24:00 ClaudiaмарияCourtney torres [place] Me [facility]odist POC GLUCOSE 2020-02-04 20:22:00 ZehraCourtney torres [place] Me thodist POC GLUCOSE 2020-02-04 18:24:00 Goyo Courtney Can Me thodist TROPONIN 2020-02-04 17:35:00 John Ragland Me thodist LACTIC ACID LEVEL, SEPSIS 2020-02-04 17:35:00 John Ragland - NOW AND REPEAT 2X EVERY 3 HOURS BLOOD CULTURE, AEROBIC & 2020-02-04 15:06:00 John Ragland ANAEROBIC TYPE AND SCREEN 2020-02-04 15:00:00 John Ragland Me thodist LACTIC ACID LEVEL, SEPSIS 2020-02-04 15:00:00 John Ragland - NOW AND REPEAT 2X EVERY 3 HOURS PREPARE RBC 2020-02-04 15:00:00 Courtney Bernal Me [facility]odist BLOOD CULTURE, AEROBIC & 2020-02-04 14:00:00 John Ragland ANAEROBIC XR CHEST 1 VW PORTABLE 2020-02-04 13:28:56 John Ragland PROTHROMBIN TIME WITH INR 2020-02-04 13:10:00 John Ragland PARTIAL THROMBOPLASTIN 2020-02-04 13:10:00 John Ragland TIME (PTT) ECG ED PRELIMINARY 2020-02-04 13:06:14 John Ragland INTERPRETATION HC COMPLETE BLD COUNT 2020-02-04 13:05:00 John Ragland W/AUTO DIFF COMPREHENSIVE METABOLIC 2020-02-04 13:05:00 John Ragland [facility] PANEL TROPONIN 2020-02-04 13:05:00 John Ragland Me thodist B NATRIURETIC PEPTIDE 2020-02-04 13:05:00 John Ragland ESTIMATED GFR 2020-02-04 13:05:00 John Ragland Me thodist ECG 12-LEAD 2020-02-04 13:00:44 John Ragland Me thodist TRANSFUSE RED BLOOD CELLS 2020-01-15 17:25:55 Debbie Sigala ed TRANSFUSE RED BLOOD CELLS 2020-01-15 15:02:23 Debbie Sigala ed TYPE AND SCREEN 2020-01-15 09:00:00 Debbie Sigala PREPARE RBC 2020-01-15 09:00:00 Debbie Sigala MAGNESIUM LEVEL 2020-01-12 07:56:00 Debbie Sigala CANCER ANTIGEN 125 2020-01-12 07:56:00 Debbie Sigala CBC WITH PLATELET AND 2020-01-12 07:56:00 Debbie Sigala DIFFERENTIAL COMPREHENSIVE METABOLIC 2020-01-12 07:56:00 Debbie Sigala PANEL CBC MORPHOLOGY 2020-01-12 07:56:00 Debbie Sigala COMPREHENSIVE METABOLIC 2019-12-18 08:30:00 Debbie Sigala PANEL HC COMPLETE BLD COUNT 2019-12-18 08:30:00 Debbie Sigala W/AUTO DIFF MAGNESIUM LEVEL 2019-12-18 08:30:00 Debbie Sigala ESTIMATED GFR 2019-12-18 08:30:00 Debbie Sigala CBC WITH PLATELET AND 2019-12-09 08:12:00 Debbie Sigala DIFFERENTIAL COMPREHENSIVE METABOLIC 2019-12-09 08:12:00 Debbie Sigala PANEL CANCER ANTIGEN 125 2019-12-09 08:12:00 Debbie Sigala MAGNESIUM LEVEL 2019-12-03 09:27:00 Debbie Sigala COMPREHENSIVE METABOLIC 2019-12-03 09:27:00 Debbie Sigala PANEL CBC WITH PLATELET AND 2019-12-03 09:27:00 Debbie Sigala DIFFERENTIAL ESTIMATED GFR 2019-12-03 09:27:00 Debbie Sigala MANUAL DIFFERENTIAL 2019-12-03 09:27:00 Debbie Sigala COMPREHENSIVE METABOLIC 2019-11-12 09:15:00 Debbie Sigala PANEL HC COMPLETE BLD COUNT 2019-11-12 09:15:00 Debbie Sigala W/AUTO DIFF MAGNESIUM LEVEL 2019-11-12 09:15:00 Debbie Sigala ESTIMATED GFR 2019-11-12 09:15:00 Debbie Sigala REFLEXIVE URINE CULTURE 2019-11-07 07:59:00 Debbie Sigala URINALYSIS, COMPLETE, WITH 2019-11-07 07:59:00 Debbie Sigala REFLEX TO CULTURE CBC WITH PLATELET AND 2019-10-17 08:24:00 Debbie Sigala DIFFERENTIAL COMPREHENSIVE METABOLIC 2019-10-17 08:24:00 Debbie Sigala PANEL CANCER ANTIGEN 125 2019-10-17 08:24:[address] SKULL BASE TO MID 2019-10-10 10:52:40 Debbie Sigala THIGH POC GLUCOSE 2019-10-10 08:29:00 Debbie Sigala Plan of Care Planned Activity Planned Date Details Comments Source Future Scheduled Test 2013-12-30 [facility] 00:00:00 (#2) [code = SHINGLES VACCINES (#2)] Future Scheduled Test 1997 BREAST CANCER [place] [facility] 00:00:00 SCREENING [code = BREAST CANCER SCREENING] Future Scheduled Test 1997 COLONOSCOPY [place] [facility] 00:00:00 SCREENING [code = COLONOSCOPY SCREENING] Future Scheduled Test 1963 COVID-19 VACCINE [facility] 00:00:00 (#1) [code = COVID-19 VACCINE (#1)] Future Scheduled Test 1957 DIABETES: RETINAL H [facility] Rest[facility]ist 00:00:00 EYE EXAM [code = DIABETES: RETINAL EYE EXAM] Future Scheduled Test 1957 DIABETIC FOOT EXAM [place] [facility] 00:00:00 [code = DIABETIC FOOT EXAM] Future Appointment 2020-10-12 Pam Andre, [facility] ill[facility] Family 00:00:00 [address]; [address], [place] [address] Encounters Start End Encounter Admission Attending Care Care Encounter Source Date/Time Date/Time Type Type Clinicians Facility Department ID 2020-08-18 2020-08-18 Outpatient [facility] [id number] 747 [place] 00:00:00 00:00:00 TARRIK 208 Method i 2020-08-18 2020-08-18 Outpatient [facility] [id number] 066 [place] 00:00:00 00:00:00 TARRIK 163 Method i 2020-08-18 2020-08-18 Outpatient [facility] [id number] 595 [place] 00:00:00 00:00:00 TARRIK 873 Method i 2020-08-16 2020-08-16 [facility] [place] [id number] 00:00:00 00:00:00 of Care Karime Vargas [id number] [place] 4.2.7.2.686 [id number] [facility] 2020-08-11 2020-08-14 [facility] Juancarlos Dexter [facility] 1.2.840.1 [id number] 18:00:00 15:57:00 Encounter Carmina Serra [place] [id number] [place] 4.2.7.2.686 [place] [id number] 081 2020-08-11 2020-08-11 Pam [facility] [place] - [id number] V illage 00:00:00 00:00:00 [facility] renate o, CONTINUOUS TOWEL ROLLER: Medical - Practi c [address] VM_HOU_V@_ e [facility], [address], [place] [address] , Ph. 2020-08-11 2020-08-11 Telephone [facility] 1.2.840.114 [id number] 00:00:00 00:00:00 [facility] [id number] [place] 4.2.7.2.686 [facility] [phone] nal 0[address] 2020-08-11 2020-08-11 Orders Doctor BERNIE 1.2.840.114 [id number] 00:00:00 00:00:00 Only Unassigned, NA [id number] [place] [facility] 4.2.7.2.686 [id number] [id number] 2020-07-22 2020-07-22 Outpatient [facility] [id number] 067 [place] 00:00:00 00:00:00 TARRIK [address] 2020-07-21 2020-07-21 Outpatient [facility] [id number] 269 [place] 00:00:00 00:00:00 TARRIK [address] 2020-07-21 2020-07-21 Outpatient [facility] [id number] 398 [place] 00:00:00 00:00:00 TARRIK [address] 2020-07-20 2020-07-20 Outpatient [facility] [id number] 989 [place] 00:00:00 00:00:00 TARRIK [address] 2020-07-14 2020-07-14 Telephone Provider, [facility] 1.2.840.114 [id number] 00:00:00 00:00:00 [facility] [id number] Care [place] 4.2.7.2.686 [place] [id number] nal 0[address] 2020-07-13 2020-07-13 [facility] 1.2.840.114 [id number] 12:17:21 23:59:00 Encounter Chiara Mann [id number] [place] 4.2.7.2.686 [place] [id number] 2020-07-13 2020-07-13 Urgent [facility], [facility] 1.2.565.806 [id number] 11:38:56 12:16:03 Care [facility] [id number] Care [place] 4.2.7.2.686 Professio [phone] nal 044 [address] 2020-06-23 2020-06-23 Outpatient KAIDEN, [facility] [id number] 263 [place] 00:00:00 00:00:00 TARRIK 052 Method i 2020-06-23 2020-06-23 Outpatient KA[facility], [facility] [id number] 263 [place] 00:00:00 00:00:00 TARRIK 261 Method i 2020-05-12 2020-05-12 Outpatient K[facility], [facility] [id number] 667 [place] 00:00:00 00:00:00 TARRIK 125 Method i 2020-05-07 2020-05-07 Outpatient KA[facility], [facility] [id number] 901 [place] 00:00:00 00:00:00 TARRIK 579 Method i 2020-05-07 2020-05-07 Outpatient [facility], [facility] [id number] 588 [place] 00:00:00 00:00:00 TARRIK 592 Method i 2020-04-14 2020-04-14 Pam [facility] [place] - [id number] V illage 00:00:00 00:00:00 [facility] renate o, CONTINUOUS TOWEL ROLLER: Medical - Practi c [address] BAE_HOU_V@H_ e [facility], [address] [address], [place] [address] , Ph. 2020-03-25 2020-03-25 Outpatient KAIDEN, [facility] [id number] 160 [place] 00:00:00 00:00:00 TARRIK 135 Method i 2020-03-24 2020-03-24 Outpatient [facility], [facility] [id number] 578 [place] 00:00:00 00:00:00 TARRIK [address] 2020-03-24 2020-03-24 Outpatient KA[facility], [facility] [id number] 292 [place] 00:00:00 00:00:00 [address]RIK [address] 2020-02-26 2020-02-26 Outpatient KA[facility]EN, [facility] [id number] 435 [place] 00:00:00 00:00:00 TARRIK [address] 2020-02-25 2020-02-25 Outpatient KAIDEN, [facility] [id number] 608 [place] 00:00:00 00:00:00 TARRIK [address] 2020-02-24 2020-02-24 Outpatient KA[facility], [facility] [id number] 599 [place] 00:00:00 00:00:00 TARRIK [address] 2020-02-04 2020-02-06 Outpatient MATHIVANAN, [facility] [id number] [place] 00:00:00 00:00:00 COURTNEY [address] 2020-01-15 2020-01-15 Outpatient KAIDEN, [facility] [id number] 594 [place] 00:00:00 00:00:00 TARRIK [address] 2020-01-14 2020-01-14 Outpatient [facility], [facility] [id number] 628 [place] 00:00:00 00:00:00 TARRIK [address] 2019-12-18 2019-12-18 Outpatient K[facility], [facility] [id number] 958 [place] 00:00:00 00:00:00 TARRIK [address] 2019-12-03 2019-12-03 Outpatient K[facility], [facility] [id number] 878 [place] 00:00:00 00:00:00 TARRIK [address] 2019-12-03 2019-12-03 Outpatient KA[facility], [facility] [id number] 995 [place] 00:00:00 00:00:00 [address]RIK [address] 2019-10-10 2019-10-10 Outpatient KAIDEN, [facility] [id number] 439 [place] 00:00:00 00:00:00 TARRIK [address] 2019-09-22 2019-09-22 Outpatient SHKEDY, [facility] [id number] 453 [place] 00:00:00 00:00:00 [place] [address] 2019-09-01 2019-09-01 Outpatient SHKEDY, [facility] [id number] 930 [place] 00:00:00 00:00:00 [place] [address] 2019-08-14 2019-08-14 Outpatient SH[place]EDY, [facility] [id number] 378 [place] 00:00:00 00:00:00 [place] [address] 2019-08-14 2019-08-14 Outpatient [facility] [id number] 278 [place] 00:00:00 00:00:[address] 2019-08-13 2019-08-13 Outpatient [facility] [id number] 278 [place] 00:00:00 00:00:[address] 2019-08-12 2019-08-12 Outpatient [facility] [id number] 413 [place] 00:00:00 00:00:[address] 2019-08-11 2019-08-11 Outpatient [facility] [id number] 413 [place] 00:00:00 00:00:[address] 2019-08-07 2019-08-07 Outpatient SH[place]EDY, [facility] [id number] 520 [place] 00:00:00 00:00:00 [place] [address] 2019-08-06 2019-08-06 Outpatient [facility] [id number] 413 [place] 00:00:00 00:00:[address] 2019-08-04 2019-08-04 Outpatient [facility] [id number] 413 [place] 00:00:00 00:00:[address] 2019-08-01 2019-08-01 Outpatient SHK[place]Y, [facility] [id number] 550 [place] 00:00:00 00:00:00 [place] [address] 2019-08-01 2019-08-01 Outpatient [facility] [id number] 413 [place] 00:00:00 00:00:[address] 2019-07-31 2019-07-31 Outpatient SH[place]Y, [facility] [id number] 521 [place] 00:00:00 00:00:00 [place] [address] 2019-07-31 2019-07-31 Outpatient [facility] [id number] 413 [place] 00:00:00 00:00:[address] 2019-07-30 2019-07-30 Outpatient [facility] [id number] 413 [place] 00:00:00 00:00:[address] 2019-07-29 2019-07-29 [facility] [id number] 413 [place] 00:00:00 00:00:[address] 2019-07-25 2019-07-25 Outpatient SHKEDY, [facility] [id number] 363 [place] 00:00:00 00:00:00 [place] [address] 2019-07-25 2019-07-25 [facility] [id number] 413 [place] 00:00:00 00:00:[address] 2019-07-23 2019-07-23 Outpatient [facility] [id number] 413 [place] 00:00:00 00:00:[address] 2019-07-21 2019-07-21 Outpatient [facility] [id number] 413 [place] 00:00:00 00:00:[address] 2019-07-18 2019-07-18 Outpatient [facility] [id number] 413 [place] 00:00:00 00:00:[address] 2019-07-17 2019-07-17 Outpatient SHKEDY, [facility] [id number] 533 [place] 00:00:00 00:00:00 [place] [address] 2019-07-17 2019-07-17 Outpatient [facility] [id number] 413 [place] 00:00:00 00:00:[address] 2019-07-16 2019-07-16 Outpatient [facility] [id number] 413 [place] 00:00:00 00:00:[address] 2019-07-15 2019-07-15 Outpatient [facility] [id number] 413 [place] 00:00:00 00:00:[address] 2019-07-14 2019-07-14 [facility] [id number] 413 [place] 00:00:00 00:00:[address] 2019-07-11 2019-07-11 Outpatient [facility] [id number] 413 [place] 00:00:00 00:00:[address] 2019-07-10 2019-07-10 Outpatient SHKEDY, [facility] [id number] 548 [place] 00:00:00 00:00:00 [place] 915 Method i 2019-07-10 2019-07-10 Outpatient [facility] [id number] 413 [place] 00:00:00 00:00:00 070 Method i 2019-07-08 2019-07-08 Outpatient [facility] [id number] 413 [place] 00:00:00 00:00:00 060 Method i 2019-07-07 2019-07-07 Outpatient [facility] [id number] 413 [place] 00:00:00 00:00:00 062 Method i 2019-07-04 2019-07-04 Outpatient [facility] [id number] 413 [place] 00:00:00 00:00:00 063 Method i 2019-07-03 2019-07-03 Outpatient [facility] [id number] 464 [place] 00:00:00 00:00:00 [place] 055 Method i 2019-07-01 2019-07-01 Outpatient [facility] [id number] 301 [place] 00:00:00 00:00:00 [place] 788 Method i 2019-06-23 2019-06-24 Outpatient [facility] [id number] 507 [place] 00:00:00 00:00:00 [place] 065 Method [facility] 2019-06-23 2019-06-23 Outpatient [facility] [id number] 510 [place] 00:00:00 00:00:00 [place] 359 Method i 2019-06-06 2019-06-06 Outpatient KAIDEN, [facility] [id number] 083 [place] 00:00:00 00:00:00 TARRIK 730 Method i Results Test Description Test Time Test Comments Results Result [facility] e Comments PET/CT Skull 2020-08-01 [facility] [place] Base To Mid 8 Radiology Results Method ist Thigh 17:19:52 08/18/2020 5:23 PM CSTPROCEDURE: PET CT SKULL BASE TO MID THIGHINDICATION: C56.9 Malignant neoplasm of unspecified ovary, C77.2 [...] Corresponding, low dose, non-contrast CT scanning was performed as part of the attenuation correction process. FINDINGS: Head and neck: No suspicious lesions are seen in the imaged head and neck. Chest: No suspicious pulmonary lesions are identified. There is no mediastinal or hilar lymphadenopathy. No abnormal FDG uptake is seen in the breasts and axillae. Abdomen: Intra-abdominal solid organs demonstrate physiological metabolism without evidence of mass lesions. Bowel metabolism is diffusely prominent, within physiological limits. No hypermetabolic retroperitoneal or mesenteric lymphadenopathy is seen. Pelvis: Right pelvic mesenteric lesion is stable in size remaining at the 1.4 cm and demonstrates slight decrease in FDG uptake with SUV of 6.7 (previous SUV was 7.8). No new FDG-avid lesions are definitively identified in the pelvis. Musculoskeletal: No worrisome bony lesions are identified. Diffusely prominent bone marrow metabolism is consistent with recent systemic therapy. Mild inflammation associated with degenerative arthropathy is noted in the lower lumbar spine. IMPRESSION: Solitary right pelvic mesenteric lesion is unchanged in size and demonstrates slight decrease in hypermetabolism, compatible with stable metastatic disease. [id number] POC glucose 2020-08-18 13:10:19 Test Item Value Reference Range Interpretation Comme [facility] POC glucose (test code = 47781-1) 93 mg/dL 65-99 Mechanical Detailer Name: Priti Anderson ID: [id number] [place] Methodist[facility] RBC, 2 [id number] 13:17:00 Test Item Value Reference Range Interpretation Comments Product name (test code Red Blood Cells -1, = 25) Leukored Unit number (test code [id number] = 0810472) Product code (test code D2573A23 = 3092) Dispense status (test Transfused code = 24) Blood expiration date (test code = 302) Blood type code (test 5100 code = 308) Blood type (test code = O POSITIVE 1314) Compatibility (test Compatible code = 6400) [place] MethodistType and [id number] 17:00:00 Test Item Value Reference Range Interpretation Comments ABO grouping (test code O Bloo d is available. = 883-9) 07/20/20 17:01 Eduarda Myalil Rh type (test code = POS 80501-7) Antibody screen (gel) NEG (test code = 890-4) [place] MethodistCBC [id number] 11:41:00CBC morphologyComment: Anisocytosis 1 +Macrocytosis 1 +Poikilocytosis 1 +Hypochromasia 1 +Marie cells1 + [facility] MOOREFASTING:NOFASTING: NOPerforming Organization Information: SiteID: RGRohan Name: [facility] Address: [address] [place] [address] Director: Bryce Drew [place] Mili [id number] 14:08:00 Test Item Value Reference Interpretation Comments Range Urine culture (test SEE NOTE A PHYLLIS Sales, URINE, code = 630-4) ROUTINE Mi microfilm processor Number: [id number] Test Status: F inal Specimen Source : URINE, CLEAN CA TCH Specimen Qualit y: Adequate Resul t: Greater than 100,000 CFU/mL of Klebsiella pneumoniae K.pneumoniae - INT ANTONELLA AMOX/CLAVULANAT E S <=2 AMPICILLIN R >=32 AMP/SULBACTAM S 4 CEFAZOLIN NR <=4 2 CEFEPIME S <=1 CEFTRIAXONE S <=1 CIPROFLOXACIN S <=0.25 GENTAMICIN S <=1 IMIPENEM S <=0.25 LEVOFLOXACIN S <=0.12 NITROFURANTOIN I 64 PIP/TAZOBACTAM S <=4 TOBRAMYCIN S <=1 TRIMETHOPRIM/HASSAN LFA S <=20S=Susceptib le I=Intermediate R=Resistant * = Not TestedNR = Not Reported NN = See Therapy CommentsTHERAPY COMMENTS Not e 1: For infection s other than uncomplicated U TI caused by E. co li, K. pneumoniae o r P. mirabilis: Cefazolin is resistant if DC C > or = 8 mcg/mL. (Distinguishing susceptible aida payal intermediate for isolates with M IC < or = 4 mcg/mL requires additional test ing.) Note 2: F or uncomplicated U TI caused by E. co li, K. pneumoniae or P. mirabilis: Cefa zolin is susceptib le if ANTONELLA <32 mcg/mL and predicts susceptible to the oral agents cefaclor, cefdi dilcia, cefpodoxime, cefprozil, cefuroxime, cephalexin a nd loracarbef. TEMO (test code = FASTING:NOFASTING TEMO) : NO RAC (test code = Performing RAC) Organization Information: Site ID: RGA Name: [facility] Address: [address] [place] [address] Director: Bryce Drew Lab Interpretation Abnormal (test code = 18796-4) [place] MethodistUrinalysis, automated with [id number] 14:08:00 Test Item Value Reference Range Interpretation Comments Color, UA (test code = YELLOW YELLOW 5778-6) Appearance (test code = TURBID CLEAR A 5767-9) Specific gravity, urine 1.016 1.001-1.035 (test code = 5811-5) pH, urine (test code = 5.5 5.0-8.0 5803-2) Glucose, urine (test NEGATIVE NEGATIVE code = 71489-9) Bilirubin, UA (test code NEGATIVE NEGATIVE = 5770-3) Ketones, UA (test code = TRACE NEGATIVE A 2514-8) Occult blood, urine 2+ NEGATIVE A (test code = 5794-3) Protein, UA (test code = 2+ NEGATIVE A 10607-6) Nitrite, UA (test code = NEGATIVE NEGATIVE 5802-4) Leukocyte esterase, UA 3+ NEGATIVE A (test code = 5799-2) WBC, UA (test code = > OR = 60 < OR = 5 /HPF A 5821-4) RBC, UA (test code = 3-10 < OR = 2 /HPF A 53002-4) Squamous epithelial 0-5 < OR = 5 /HPF cells, UA (test code = 37175-5) Bacteria, UA (test code FEW NONE SEEN /HPF A = 5769-5) Hyaline casts, UA (test NONE SEEN NONE SEEN /LPF code = 5796-8) TEMO (test code = TEMO) FASTING:NOFASTING: NO RAC (test code = RAC) Performing Organization Information: Site ID: RGA Name: [facility] Address: [address] [place] [address] Director: Bryce Drew Lab Interpretation (test Abnormal code = 81932-3) [place] MethodistAbsolute neutrophil [id number] 09:59:42 Test Item Value Reference Range Interpretation Comments Neutrophils, absolute (test code = 3.08 1.76- 7.59 k/uL 751-8) [place] MethodistBlood culture, aerobic & [id number] 19:33:03 Test Item Value Reference Range Interpretation Comments Blood culture No growth Specimen isolate (test after 5 days InformationSpe cimen code = 600-7) of Source: BloodS pecimen incubation. Site: Arm, left [place] MethodistECG 12 [id number] 16:20:59 Test Item Value Reference Range Interpretation Comments Ventricular rate (test 78 code = 253) Atrial rate (test code 122 = 255) QRSD interval (test 70 code = 260) QT interval (test code 374 = 264) QTC interval (test code 426 = 265) QRS axis 1 (test code = 31 268) T wave axis (test code 41 = 270) EKG impression (test Atrial code = 273) fibrillation-Nonspecif ic ST and T wave abnormality-Abnormal ECG-In automated comparison with ECG of 13-MAY-2018 13:27,-Nonspecific T wave abnormality now evident in Inferior leads-Nonspecific T wave abnormality now evident in Lateral leads- [place] MethodistBasic metabolic [id number] 07:21:17 Test Item Value Reference Range Interpretation Comments Sodium (test code = 2951-2) 127 135- 148 mEq/L L Potassium (test code = 2823-3) 3.9 3.5- 5.0 mEq/L Chloride (test code = 5-0) 92 98- 112 mEq/L L CO2 (test code = 2027-9) 26 24- 31 mEq/L Anion gap (test code = 15569-9) 9@ANIO 7- 15 mEq/L BUN (test code = 3094-0) 22 mg/dL 8-23 Creatinine (test code = 2160-0) 1.19 mg/dL 0.5-0.9 H Glucose (test code = 2345-7) 109 mg/dL 65-99 H Calcium (test code = 39481-3) 8.3 mg/dL 8.8-10.2 L Lab Interpretation (test code = Abnormal 40081-6) Can MethodgoldTransthoracic Echocardiogram Complete, (w Contrast, Strain and 3D if needed)2020-02-05 12:06:48 Test Item Value Reference Range Interpretation Comments Velocity Ratio (V1/V2) 0.52 m/s (test code = 4689) IVS,d (test code = 1.09 cm 4615421787) EF (test code = 55.17 % 3877906715) Ascending aorta (test 3.11 cm code = 3230146688) LVPWD,d (test code = 1.11 cm 6864053975) AoV Mean PG (test code 11.76 mmHg = 6026946292) AV LVOT peak gradient 6.36 mmHg (test code = 0370852583) MV mean gradient (test 2.17 mmHg code = 3296280082) MV valve area p 1/2 4.61 cm2 method (test code = 2844364733) PV Pk Grad (test code 7.81 mmHg = 8914233349) E/A ratio (test code = 2.35 8326280081) E wave decelartion 164.60 msec time (test code = 9247660863) LVOT Diam,S (test code 1.93 cm = 0824936579) LVOT area (test code = 2.92 cm2 3527313264) LVOT Vmax (test code = 1.33 m/s 9968656033) LVOT VTI (test code = 0.28 m 5335562594) RVOT Vmax (test code = 1.00 m/s 9288762097) AoV Peak PG (test code 26.50 mmHg = 5507947786) PV Mean Grad (test 3.06 mmHg code = 0146658412) MV Peak E Noam (test 1.34 m/s code = 3831901258) MV stenosis pressure 47.73 ms 1/2 time (test code = 6667058970) MV Peak A Noam (test 0.57 m/s code = 8438893154) Ao Root Diameter (test 3.32 cm code = 5447117689) AoV Area, Vmax (test 1.43 cm2 code = 5720542501) AoV Area, VTI (test 1.77 cm2 code = 2458442417) AoV Vmax (test code = 2.57 m/s 2725599332) IVS/LVPW,2D (test code 0.98 = 2153032723) Left Atrium Dimension 3.53 cm Anterior (test code = 1797818033) LV,d (test code = 4.59 cm 3418795772) LV,s (test code = 3.28 cm 8245884899) PV VMAX (test code = 1.40 m/s 2997867918) PV VTI (test code = 0.26 m 2895240607) RVSP (TR) (test code = 70.13 mmHg 8558087862) TR Vpeak (test code = 3.88 mm/s 0552164396) MV E A ratio (test 2.37 code = 8976001265) TR pk grad (test code 40.08 mmHg = 9689090389) MR peak grad (test 6.46 mmHg code = 1693476138) PV Vmn (test code = 0.80 6020479520) RVSP (test code = 70.13 mmHg 6590961520) Ao Root Diameter (test 3.32 cm code = 4980264463) LV SYS VOL (test code 43.36 ml = 1752880835) LV GILLIS VOL (test code 96.73 ml = 6494778222) LV SV Teich 2D (test 53.38 ml code = 0212309445) LV Vol s Teich PSAX 43.36 ml (test code = 0773323435) MV Vmax (test code = 1.27 m 8367375820) MV VTI Tips (test code 0.28 m = 7479284535) RVOT pk grad (test 4.00 mmHg code = 6322832668) AoV Vmn (test code = 1.55 2399898308) LV FS Cube 2D (test 28.60 code = 3435963131) LV FS Teich 2D (test 28.60 code = 0131498967) AoV VTI (test code = 0.46 m 4849687812) LA Area d A4C (test 25.33 cm2 code = 7798265582) LV EF,2D (test code = 63.59 % 0577643663) MR Vmax (test code = 4.41 m/s 1442619417) MV AE ratio (test code 0.42 = 7746668452) LVOT Vmn (test code = 0.94 8819851086) Aov area Vmn (test 1.74 cm2 code = 4465788001) LA Vol d MOD A4C (test 83.63 ml code = 8234796163) LVOT mean grad (test 3.87 mmHg code = 4815921795) MAX Pred HR (test code 147.53 = 3920066907) 85 of MPHR (test code 125.40 = 0627568133) Calc MPHR (test code = 147.53 bpm 1979637374) LV SV Cube 2D (test 61.41 ml code = 1561875155) LV vol d cube 2D (test 96.56 ml code = 2870824747) LV vol s cube 2D (test 35.15 ml code = 1423195348) MV Decel slope (test 8.15 m/s2 code = 0903978069) Pred Exer Dur R1 (test 6.56 code = 6241871365) Pred METS R1 (test 5.28 code = 0975487438) TEMO (test code = TEMO) Normal LV systolic function, ejection fraction 60-64%. Diastolic dysfunction is indeterminate. Bi-atrial enlargement. Mild-moderate tricuspid valve regurgitation. Moderate pulmonic valve regurgitation. Moderate pulmonary hypertension present. [place] [id number] 22:17:35 Test Item Value Reference Range Interpretation Comments Troponin (test code = <0.006 0-[place]04 [place] [address]-4) having a myocar dial infarction, nedra ng with all other appro priate clinical measur es and actions includi ng ECG and other diagnosti cs as appropriate, nh asure Ultra TnI at 0 hrs and at 3 hrs.Myocardia l infarction VERY LIKELYThe 0 hr TnI level is > 0.10 ng/mL --Myocardial in farction LIKELYThe 0 hr TnI level is > 0.04 ng/mL and 3 hr level is increa sed or decreased by at least 0.020 ng/mL -------Juan cardial infarct ion VERY UNLIKELYBoth th e 0 hr and 3 hr TnI levels <= 0.04 ng/mL(within no rmal limits) OR 0 hr is > 0.04 ng/mL and 3 hr is increased OR de creased by less than 0.020 ng/mL [place] MethodistLactic acid level, SEPSIS - Now and repeat 2x every 3 hours 2020-02-04 22:03:42 Test Item Value Reference Range Interpretation Comments Lactic acid (test code = 78317-1) 2.2 mmol/L 0.5-2.2 [place] MethodistB natriuretic [id number] 13:47:02 Test Item Value Reference Range Interpretation Comments BNP (test code = 62590-4) 527 pg/mL 0-100 H Lab Interpretation (test code = Abnormal 49651-2) [place] MethodistPartial thromboplast[facility], [id number] 13:38:04 Test Item Value Reference Range Interpretation Comments PTT (test code = 51.9 23.0- 36.0 sec H PTT thera peutic range 3173-2) for unfractiona terence heparin is61.0- 112.0 seconds which corresponds to Anti-Xa0.3-0.7 U/ml. Lab Interpretation Abnormal (test code = 01432-5) [facility] 1 [id number] 13:35:10Hm Interface, Radiology Results 02/04/2020 1:38 PM CDTEXAMINATION: XR CHEST 1 PORTABLECLINICAL HISTORY: SOBCOMPARISON: Chest x-ray 05/13/2018IMPRESSION: Single frontal view reveals a stable cardiomediastinal silhouette with right sided Port-A-Cath in place. Left basilar opacification has developed partially obscuring the hemidiaphragm concerning for pneumonia and/or trace effusion. Ri ght hemithorax is clear. Old right rib fracture again noted. The remainder of the examination is unchanged.[facility]-[id number] MethodistProthrombin time with [id number] 13:27:48 Test Item Value Reference Range Interpretation Comments Prothrombin time (test 32.1 11.5- 14.5 sec H code = 5902-2) INR (test code = 3.1 [facility] 72843-3) Normalized Rati o (INR) is a therapeuti c monitoring tool for patients who ar e stable on oral anticoagulant t herapy. An INR of 2.0-3 .0 is suggested for d eep vein thrombosis/pulm onary embolism. Lab Interpretation Abnormal (test code = 58080-5) [facility] ED Preliminary Interpretation - Not an [id number] 13:06:14 Test Item Value Reference Range Interpretation Comments TEMO (test code = TEMO) John Ragland MD 02/04/2020 10:48 [facility] Preliminary Interpretation - Not an OrderPerformed by: John Ragland MDAuthorized by: John Ragland MD ECG reviewed by ED Physician in the absence of a life insurance underwriter: yes Interpretation: Interpretation: abnormal Rate: ECG rate: 78Rhythm: Rhythm: atrial fibrillation QRS: QRS axis: NormalST segments: ST segments: Non-specific ST segment elevation noted on lead: No ST elevation.T waves: T waves: flattening and inverted Flattening: V1 Inverted: V3 Lab Interpretation Abnormal (test code = 89896-5) [place] MethodistReflexive urine [id number] 07:35:00 Test Item Value Reference Range Interpretation Comments Reflex (test code = NO CULTURE INDICATED 630-4) RAC (test code = Performing Organization RAC) Information: Site ID: [id number] Name: [facility] Address: [address] [place] [id number] Director: Bryce Drew [place] MethodistURINALYSIS, COMPLETE, WITH REFLEX TO [id number] 07:35:00 Test Item Value Reference Range Interpretation Comments Color, UA (test code = YELLOW YELLOW 5778-6) Appearance (test code = CLEAR CLEAR 5767-9) Specific gravity, urine 1.013 1.001-1.035 (test code = 5811-5) pH, urine (test code = 7.5 5.0-8.0 5803-2) Glucose, urine (test NEGATIVE NEGATIVE code = 50968-5) Bilirubin, UA (test code NEGATIVE NEGATIVE = 5770-3) Ketones, UA (test code = NEGATIVE NEGATIVE 2514-8) Occult blood, urine NEGATIVE NEGATIVE (test code = 5794-3) Protein, UA (test code = TRACE NEGATIVE A 13421-6) Nitrite, UA (test code = NEGATIVE NEGATIVE 5802-4) Leukocyte esterase, UA NEGATIVE NEGATIVE (test code = 5799-2) WBC, UA (test code = NONE SEEN < OR = 5 /HPF 5821-4) RBC, UA (test code = NONE SEEN < OR = 2 /HPF 40549-7) Squamous epithelial NONE SEEN < OR = 5 /HPF cells, UA (test code = 93148-4) Bacteria, UA (test code NONE SEEN NONE SEEN /HPF = 5769-5) Hyaline casts, UA (test NONE SEEN NONE SEEN /LPF code = 5796-8) RAC (test code = RAC) Performing Organization Information: Site ID: [id number] Name: [facility] Lab Address: [address] [place] [id number] Director: Bryce Drew Lab Interpretation (test Abnormal code = 71094-4) [place]
--- OUTSIDE RECORDS SUMMARY | 2020-09-20 09:30 | XMS REPORT | Summary of Care ---
:1945 Author Organization [facility] Address [address] [place] [address] Care Team Providers Name Role Phone Logan Primary Care Provider Reason for Visit Reason Comments Assessment Encounter Details Date Type Department Care Team Description 08/11/2020 Telephone [facility] Family Medicine Macie Ricci FNP Assessment - [address] dee Lei [place], [place] [address] [place] [phone] Allergies Active Allergy Reactions Severity Noted Date Comments Meperidine Hcl Nausea and/or Vomiting 09/15/2015 documented as of this encounter (statuses as of 08/11/2020) Medications Medication Sig Dispensed Refills Start Date [...] Chest tightness for up to 30 days. documented as of this encounter (statuses as of 08/11/2020) Active Problems Problem Noted Date Post-op pain 09/05/2017 documented as of this encounter (statuses as of 08/11/2020) Immunizations Name Administration Dates Next Due Influenza [...] Telephone Encounter - Estella Sánchez RN - 08/11/2020 4:42 PM CSTSpoke to patient regarding s/s. Pt reports bilat lower leg edema, SOB, and "tightness in chest". Pt has hx of atrial fibrillation and expressed concern about possible cardiac compications. Pt denies dizziness, headache, N/V. Pt denies pain at this time. Pt encouraged to go to nearest ED for current symptoms per RHONDA Dumont. Pt agreed with plan and will be driven to [facility] ED. documented in this encounter Plan of Treatment Date Type Specialty Care Team Description 08/11/2020 Urgent Care Family Medicine Rogelio Larose i, FNP [address] [place] [address] [phone] Provider, [facility] Health Maintenance Due Date Last Done Comments [...] of this encounter Implants Implanted Type Area Field Crops Harvest Machine Operator Device Shelf Model / Identifier Expiration Serial / Lot Date Palacos R+G Bone Cement With Gentamicin CEMENT Left: Anayeli 02/28/2021 [id number] / Implanted: Qty: 2 on 09/05/2017 by Olayinka Rock MD at [facility] Knee 0 [id number] / [id number] Ps Open Box Femoral - Left KNEE Left: Biomet [id number] / Implanted: Qty: 1 on 09/05/2017 by Olayinka Rock MD at [facility] Knee 1 [id number] / [id number] Ps Tibial Bearing KNEE Left: Biomet 05/30/2022 1 [id number] / Implanted: Qty: 1 on 09/05/2017 by Olayinka Rock MD at [facility] Knee 1 [id number] / [id number] Series-A Standard Patella PATELLA Left: Biomet 07/01 [id number] / Implanted: Qty: 1 on 09/05/2017 by Olayinka Rock MD at [facility] Knee 1 [id number] / [id number] Fixed Cruciate Tibial Plate PLATE Left: Biomet [id number] / Implanted: Qty: 1 on 09/05/2017 by Olayinka Rock MD at [facility] Knee 1 [id number] / [id number] documented as of this encounter Results Not on filedocumented in this encounter Insurance Payer Benefit Plan / Subscriber ID Effective Dates Phone Addre ss Type Group [employer] [place] PLUS [id number] 2017-Presen Medicare [place] PL[place] [employer] [place] [place] [id number] 2020-Pres Medicare Adv PLUS PLUS ent HMO CLASSIC/VALUE documented as of this encounter
--- OUTSIDE RECORDS SUMMARY | 2020-09-20 09:30 | XMS REPORT | Encounter Summary ---
:1945 Author Care Team Providers Name Role Phone Dr. Taryn Maxwell Primary Care Provider [phone] Reason for Visit Essential hypertension; Hypercholesterol emia; Malignant tumor of ovary; Diabetes mellitus; Telemedicine Visit Instructions 1. Malignant tumor of ovary 2. Diabetes mellitus 3. Hypercholesterolemia 4. Essential hypertension 5. Chronic atrial fibrillation 6. 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 PAtent report her doc is aware and her s ymptoms has been monitored. Patient encouraged to notify her doc if her symp toms. Patient educational handouts: No information available. Plan of Care Reminders Provider Appointments Telemedicine on or around [facility] 10/12/2020 [facility] Lab None recorded. Referral None recorded. Procedures None recorded. Surgeries None recorded. Imaging None recorded. Medications Name Start Date albuterol sulfate HFA 90 mcg/actuation aerosol inhaler alprazolam 0.5 mg tablet amlodipine 10 mg tablet Take 1 tablet every day by oral route. amoxicillin 500 mg-potassium clavulanate 125 mg tablet amoxicillin 875 mg-potassium clavulanate 125 mg tablet atenolol 100 mg tablet atorvastatin 20 mg tablet atorvastatin 40 mg tablet Take 1 tablet every day by oral route. ciprofloxacin 500 mg tablet doxycycline hyclate 100 mg capsule Flovent HFA 110 mcg/actuation aerosol inhaler Fluzone High-Dose (PF) 180 mcg/0.5 mL intramus cular syringe Fluzone High-Dose Quad (PF) 240 mcg/0.7 mL IM syringe furosemide 20 mg tablet Take 1 tablet every day by oral route as needed. gabapentin 100 mg capsule Take 1 capsule 3 times a day by oral route. lisinopril 5 mg tablet Take 1 tablet every day by oral route. lorazepam 0.5 mg tablet metformin 500 mg tablet Take 1 tablet twice a day by oral route. ofloxacin 0.3 % ear drops ondansetron [address] 1 tablet every 8 hours by translingual route as needed for 2 days. ondansetron HCl 8 mg tablet prochlorperazine maleate 10 mg tablet tramadol 25mg as needed tramadol 50 mg tablet Xarelto 10 mg tablet Take 1 tablet every day by oral route. Xarelto 15 mg tablet Medications Administered None recorded. Vitals None recorded. Results Lab Results None recorded. Allergies Code Code System Name Reaction Severity Status Onset 067187 RxNorm Demerol Other Severe Active Problems Name Status Onset Date Source Malignant Tumor of Ovary Active 04/14/2020 Diabetes Mellitus Active 04/14/2020 Hypercholesterolemia Active 04/14/2020 Neuropathy Active 04/14/2020 Essential Hypertension Active 04/14/2020 Procedures Date Name Performed by Hysterectomy (Total) Information not sebastien ilable Vaccine List None recorded. Social History Tobacco Smoking Status Never Smoker Past Encounters Encounter Date Diagnosis Provider 08/11/2020 Malignant Tumor of Ovary; Pam Manrique ENTERTAINMENT DIRECTOR: Diabetes Mellitus; [address] [facility], [address], Hypercholesterolemia; [place] [address], Hypertension; Chronic Atrial Ph. Fibrillation; Chronic Diastolic Heart Failure; Polyneuropathy Due to Drug History of Present Illness Diabetes F/U Reported By: Patient HPI: Review finger sticks: monito ring glucose daily. Context: seeing eye doctor regularly. 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 Associated Symptoms: fatigue; SOB Hyperlipidemia Reported By: Patient HPI: Type of hyperlipidemia: hype rcholesterolemia. Duration: chronic. Control: improving. Complian ce: compliant. Complications: coronary artery disease, cardiovascul ar disease Hypertension Reported By: Patient HPI: Onset/Timing: better. Allevi ating Factors: medication. Associated Symptoms: no fatigue, no pal pitations, no decline in exercise capacity, shortness of breath Note: I confirm that I received verbal consent from the patient for the virtual visit.
This telemedicine encounter was performed using live {{video and audio|audio only because either patient did not have technology or unable to connect due to technical problems*}}.
<strong>(for a udio only)</strong> Total time spent with patient: {{30#| }} minutes.<div>[facility] ( SATNAM: Pam Ruiz-Mbayo ) reviewed the [facility] consent form verbally withpatient. Patient {{did*|did not}} have questions. Any and all patient questions were addressed. Patient consented to health care services provided via elarm. Patient was directed to the [facility] website to review the form in greater detail. Patient was informed that a physical copy of the consent would be mailed to his/her home. Patient confirmed that, upon receipt of the consent, that he/she will sign and return the form in the pre-addressed and stamped envelope.</div> Review of Systems Comprehensive General Adult ROS Reported By: Patient Constitutional: Constitutional: no fever, no night sweats, no significant weight gain, no significant weight loss, no exercise intolerance Eyes: Eyes: no dry eyes, no vision change, no irritation ENMT: Ears: no difficulty hearing, no ear pain. Nose: no frequent nosebleeds, no nose problems , no sinus problems. Mouth/Throat: no sore throat, no bleeding gums, no snoring, no dry mouth, no mouth ulcers, no oral abnorm alities, no teeth problems Cardiovascular: Cardiovascular: no chest quintin n, no arm pain on exertion, no shortness of breath when wal [place], no shortness of breath when lying down, no palpitations, no known heart murmur, no lightheadedness Respiratory: Respiratory: no cough, no wh eezing, no shortness of breath, no coughing up blood, no sleep apnea Gastrointestinal: Gastrointestinal: no abdomin al pain, no nausea, no vomiting, no constipation, normal appe tite, no diarrhea, not vomiting blood, no dyspepsia, no GERD Genitourinary: Genitourinary: no incontinen ce, no difficulty urinating, no hematuria, no increased freq uency Musculoskeletal: Musculoskeletal: no muscle a ches, no muscle weakness, no arthralgias/joint pain, no b ack pain, no swelling in the extremities Integumentary: Skin: no abnormal mole, no j aundice, no rashes, no laceration Neurologic: Neurologic: no loss of consc iousness, no weakness, no numbness, no seizures, no di zziness, no migraines, no headaches, no tremor Psychiatric: Psych: no depression, no sle ep disturbances, feeling safe in a relationship, no alcohol abu se, no anxiety, no hallucinations, no suicidal thoughts Endocrine: Endocrine: no fatigue Hematologic/Lymphatic: Hematologic/Lymphatic no swo llen glands, no bruising, no excessive bleeding Allergic/Immunologic: Allergy/Immunologic: no runn y nose, no sinus pressure, no itching, no hives, no freque nt sneezing Physical Exam Telemedicine/Virtual Visit Reported By: Patient Constitutional: Level of Distress: NAD Psychiatric: Mental Status: active and al ert, normal mood, normal affect. Orientation: to time, to salome ce, to person. Memory: recent memory normal, remote memory normal"
--- OUTSIDE RECORDS SUMMARY | 2020-09-20 09:30 | XMS REPORT | Summary of Care ---
:1945 Author Organization [facility] - Health Address [address] [place] [address] Care Team Providers Name Role Phone Logan Primary Care Provider Encounter Details Date Type Department Care Team Description 08/11/2020 Orders Only [facility] Doctor Unassigned, No [address] [facility] Name [place] [phone] [facility] [place] [phone] Allergies Active Allergy Reactions Severity Noted Date [...] filedocumented in this encounter Plan of Treatment Date Type Specialty Care Team Description 08/11/2020 Urgent Care Family Medicine Rogelio Larose i, CIGARETTE EXAMINER [address] [place] [address] [phone] Provider, [facility] Health Maintenance Due [...] of this encounter Implants Implanted Type Area Hold Worker Device Shelf Model / Identifier Expiration Serial / Lot Date Palacos R+G Bone Cement With Gentamicin CEMENT Left: Anayeli 02/28/[id number]- / Implanted: Qty: 2 on 09/05/2017 by Olayinka Rock MD at [facility] Knee [id number] / [id number] Ps Open Box Femoral - Left KNEE Left: Biomet [id number] / Implanted: Qty: 1 on 09/05/2017 by Olayinka Rock MD at [facility] Knee 1 [id number] / [id number] Ps Tibial Bearing KNEE Left: Biomet 05/30/2022 1 [id number] / Implanted: Qty: 1 on 09/05/2017 by Olayinka Rock MD at [facility] Knee 1 [id number] / [id number] Series-A Standard Patella PATELLA Left: Biomet 07/01 [id number] / Implanted: Qty: 1 on 09/05/2017 by Olayinka Rock MD at [facility] Knee 1 [id number] / [id number] Fixed Cruciate Tibial Plate PLATE Left: Biomet [id number] / Implanted: Qty: 1 on 09/05/2017 by Olayinka Rock MD at [facility] Knee 1 [id number] / [id number] documented as of this encounter Procedures Procedure Name Priority Date/Time Associated Diagnosis Comme nts CONSENT/REFUSAL FOR Routine 08/11/2020 5:33 PM WEAVER NARROW FABRICS DIAGNOSIS AND TREATMENT documented in this encounter Results Not on filedocumented in this encounter Insurance Payer Benefit Plan / Subscriber ID Effective Dates Phone Addre ss Type Group [employer] [place] PLUS [id number] 2017-Presen [place] t H[place] PL[place] [employer] [place] [id number] 2020-Pres Medicare Adv PLUS PLUS ent HMO CLASSIC/VALUE documented as of this encounter
--- OUTSIDE RECORDS SUMMARY | 2020-09-20 09:32 | XMS REPORT | Summary of Care ---
:1945 Author Organization [facility] - [facility] Address [address] [place] [address] Care Team Providers Name Role Phone Logan Primary Care Provider Ezequiel Amezcua MD Medical Economics Consultant Reason for Visit Reason Comments Transition Of Care Encounter Details Date Type Department Care Team Description 08/16/2020 Transition of Care [facility] Karime Wellington RN Transition Of Care [facility] [address] [place] [phone] Allergies Active Allergy Reactions Severity Noted Date Comments Meperidine Hcl Nausea and/or Vomiting 09/15/2015 documented as of this encounter (statuses as of 08/16/2020) Medications Medication Sig Dispensed Refills Start Date End Date Status atenolol (TENORMIN) 100 Take 100 mg by 0 Active mg tablet mouth 2 (two) times daily. atorvastatin (LIPITOR) Take 20 mg by 0 Active 20 mg tablet mouth at bedtime. FLUTICASONE PROPIONATE Inhale. 0 Active (FLUTICASONE INHALE) metFORMIN (GLUCOPHAGE) Take 500 mg by 0 Active 1,000 mg tablet mouth 2 (two) times daily with meals. cetirizine (ZYRTEC) 10 Take 10 mg by 0 Active mg tablet mouth as needed for Allergies. metFORMIN 500 mg tablet Take 500 mg by 0 Active mouth 2 (two) times daily with meals. Biotin 10 mg Tab Take 1 tablet by 0 Active mouth daily. docusate (STOOL Take 200 mg by 0 Active SOFTENER) 100 mg mouth 2 (two) capsule times daily. diphenhydrAMINE Take 25 mg by 0 Active (BENADRYL ALLERGY) 25 mouth every 6 mg tablet (six) hours as needed for Itching or Allergies. ondansetron 4 mg tablet Take 1 tablet by 12 tablet 0 8 Active mouth every 8 (eight) hours as needed for Nausea and Vomiting (N/V). guaiFENesin (MUCINEX) Take 1 tablet by 20 tablet 0 01/05/2018 Active 600 mg tablet mouth every 12 (twelve) hours. benzocaine-menthol Take 1 Lozenge 12 Lozenge 0 01/05/2018 Active (CEPACOL SORE THROAT, by mouth every 2 THEODORA-MEN,) lozenge (two) hours as needed for 48 Hours for Sore throat. ferrous sulfate 325 mg Take 325 mg by 0 Active (65 mg iron) tablet mouth 3 (three) times daily with meals. gabapentin 100 mg Take 100 mg by 0 Active capsule mouth 3 (three) times daily. traMADoL 100 mg capsule Take 50 mg by 0 Active mouth. KCL 20 mEq Take 1 tablet by 30 tablet 0 08/14/2020 A ctive tabletIndications: mouth daily. Edema, unspecified type magnesium oxide 420 mg Take 420 mg by 60 tablet 0 08/14/2020 Active TabIndications: Edema, mouth 2 (two) unspecified type times daily. furosemide 40 mg Take 1 tablet by 30 tablet 0 08/14/2020 Active tabletIndications: mouth daily. Edema, unspecified type lisinopriL 10 mg Take 1 tablet by 30 tablet 0 08/14/2020 Active tabletIndications: mouth daily. Edema, unspecified type documented as of this encounter (statuses as of 08/16/2020) Active Problems Problem Noted Date Pulmonary hypertension 08/13/2020 Essential hypertension 08/12/2020 Atrial fibrillation with RVR 08/12/2020 Dyslipidemia 08/12/2020 Type 2 diabetes mellitus with other specified complica tion 08/12/2020 Acute on chronic diastolic CHF (congestive heart failu re), NYHA class 3 08/12/2020 Anemia 08/11/2020 Post-op pain 09/05/2017 documented as of this encounter (statuses as of 08/16/2020) Immunizations Name Administration Dates Next Due Influenza High Dose 07/04/2019, 09/06/2015 Influenza High Dose Quad 06/16/2020 Influenza Virus Vaccine 07/01/2020, 08/01/2017 Pneumococcal Polysaccharide, PPSV23 (PNEUMOVAX) 10/19/2017, 09/06/2015 Zoster(Zostavax)(Shingles) 11/01/2013 documented as of this encounter Social History Tobacco Use Types Packs/Day Years Used Date Never Smoker Smokeless Tobacco: Never Used Alcohol Use Drinks/Week oz/Week Comments No 0 Standard drinks or equivalent 0.0 Sex Assigned at Date Recorded Not on file COVID-19 Exposure Response Date Recorded In the last month, have you been in contact with No / Unsure 08/11/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 documented as of this encounter Last Filed Vital Signs Not on filedocumented in this encounter Miscellaneous Notes Telephone Encounter - Karime Wellington RN - 08/16/2020 4:46 PM CST TRANSITIONAL CARE MANAGEMENT ASSESSMENT 08/16/2020 Yuliya Kelley [id number] Yuliya Kelley is a 74 year old /White female was admitted on 08/11/20 to [facility], ADC MED SURG. She was discharged on 08/14/20 with discharge disposition of HR- Routine Discharge. Admitting Physician: Carmina Serra Discharge Diagnosis: Acute symptomatic anemia Linked Episodes Type: Episode: Status: Noted: Resolved: Last update: Updated by: TRANSITION OF CARE TCM Active 08/16/2020 08/16/2020 11:30 AM Karime Wellington RN Comments: TCM Vzx-peqx-kw-face outreach documentation: Discharge Assessment Chart Assessed: 08/16/20 Transition CM attempted to contact patient x2. CM left a discreet voicemail explaining purpose of call and call back information. JUAN MANUEL Castano, RN-BC, CCRN Transition Air Sealing Technician Nurse Clinician IV Transitions of Care Management Team Office: [phone] [email or web address] elephone Encounter - Karime Wellington RN - 08/16/2020 11:30 AM CSTCM LM to return call. Will attempt again at a later time. JUAN MANUEL Castano, RN-BC, CCRN Transition Air Sealing Technician Nurse Clinician IV Care Management Team Office: [phone] [email or web address] documented in this encounter Plan of Treatment Health Maintenance Due Date Last Done Comments HEPATITIS C (HCV) SCREEN 1945 HgA1C 1948 EYE EXAM 1957 LDL-C 1957 URINE MICROALBUMIN 1957 Depression Screening 1959 FOOT EXAM 1965 DTaP,Tdap,and Td Vaccines (1 - 1966 Tdap) COLON CANCER SCREENING ANNUAL 1997 FIT/FOBT COLON CANCER SCREENING FIT DNA 1997 EVERY 3 YEARS COLON CANCER SCREENING 1997 SIGMOIDOSCOPY EVERY 5 YEARS COLONOSCOPY 1997 Colorectal Cancer Screening 1997 Medicare Wellness Visit 2012 Zoster Recombinant Vaccine 12/27/2013 11/01/2013 (SHINGRIX) (2 of 3) Breast Cancer Screening 01/24/2018 01/24/2017, 01/10/2016, (MAMMOGRAM) 04/20/2015 CREATININE (SERUM) 08/14/2021 08/14/2020, 08/13/2020, 08/12/2020, Additional history exists Osteoporosis Screening 03/15/2026 03/15/2016 PNEUMOCOCCAL VACCINES 65+ Completed 10/19/2017, 09/06/2015 INFLUENZA VACCINE Completed 07/01/2020, 06/16/2020, 07/04/2019, Additional history exists documented as of this encounter Implants Implanted Type Area Charging Board Operator Device Shelf Model / Identifier Expiration Serial / Lot Date Palacos R+G Bone Cement With Gentamicin CEMENT Left: Anayeli 02/28/[id number]- / Implanted: Qty: 2 on 09/05/2017 by Olayinka Rock MD at [facility] Knee [id number] / [id number] Ps Open Box Femoral - Left KNEE Left: Biomet [id number] / Implanted: Qty: 1 on 09/05/2017 by Olayinka Rock MD at [facility] Knee 1 [id number] / [id number] Ps Tibial Bearing KNEE Left: Biomet 05/30/2022 1 [id number] / Implanted: Qty: 1 on 09/05/2017 by Olayinka Rock MD at [facility] Knee 1 [id number] / [id number] Series-A Standard Patella PATELLA Left: Biomet 07/01 [id number] / Implanted: Qty: 1 on 09/05/2017 by Olayinka Rock MD at [facility] Knee 1 [id number] / [id number] Fixed Cruciate Tibial Plate PLATE Left: Biomet [id number] / Implanted: Qty: 1 on 09/05/2017 by Olayinka Rock MD at [facility] Knee 1 [id number] / [id number] documented as of this encounter Results Not on filedocumented in this encounter Insurance Payer Benefit Plan / Subscriber ID Effective Dates Phone Addre ss Type Group [employer] [place] PLUS [id number] 2017-Presen [place] t [place] PL[place] [id number] 2020-Pres Medicare Adv PLUS PLUS ent HMO CLASSIC/VALUE documented as of this encounter
--- OUTSIDE RECORDS SUMMARY | 2020-09-20 09:32 | XMS REPORT | Summary of Care ---
:1945 Author Organization [facility] - Health Address [address] [place] [id number] Care Team Providers Name Role Phone Logan Primary Care Provider Reason for Referral (Routine) Status Reason Specialty Diagnoses / Referred By Contact Refe rred To Procedures Contact New Request Diagnoses Edema, unspecified type Alexi Bacon MD Rahate, Uzma Procedures Discharge Follow-up: PCP TARYN SILVA; [address] [place] [address] [place], [place] [address] [place] Phone: [phone] Fax: Radiology Services (Routine) Status Reason Specialty Diagnoses / Referred By Referred To Procedures Contact Contact New Request Diagnostic Diagnoses Shortness of breath Alroumoh, Manaf Radiology Procedures XR CHEST 1 LISSA Madrigal MD [address] [place] [address] [place] [address] (Routine) Status Reason Specialty Diagnoses / Referred By Referred To Procedures Contact Contact New Request Vascular Procedures Alexi Bacon, Sonography BILATERAL VENOUS DUPLEX LOWER [address] [place] [address] [place] [address] (Routine) Status Reason Specialty Diagnoses / Referred By Referred To Procedures Contact Contact New Request Echocardiograph Diagnoses Hypervolemia, unspecified hypervolemia type Carmina Serra, Procedures ECHO ROUTINE W/DOPPLER COLOR MD [address] [place] [address]. [place] [address] MRI/CAT Scan (Routine) Status Reason Specialty Diagnoses / Referred By Referred To Procedures Contact Contact New Request Diagnostic Diagnoses Shortness of breath Juancarlos Dexter, Radiology Procedures CT CHEST PULMONARY ANGIOGRAM CT THORAX W CONTRAST DO [address] [place] [address]. [address] [place] [address] Reason for Visit Reason Comments Shortness of Breath Edema Auth/Cert Status Reason Specialty Diagnoses / Referred By Referred To Procedures Contact Contact Emergency Medicine Diagnoses SOB;EDEMA [facility] [address] [place] [phone] Fax: Encounter Details Date Type Department Care Team Description 08/11/2020 - Hospital Encounter [facility] Medicine Surgery DexterJuancarlos kaplan, [address] [place], [place] [id number] Anemia 08/14/2020 Unit Carmina Serra MD [address] [place] [address]. [place], [place] [id number] [address] [place] [phone] Allergies Active Allergy Reactions Severity Noted Date Comments Meperidine Hcl Nausea and/or Vomiting 09/15/2015 documented as of this encounter (statuses as of 08/14/2020) Medications Medication Sig Dispensed Refills Start End Status Date Date atenolol (TENORMIN) 100 Take 100 mg 0 Active mg tablet by mouth 2 (two) times daily. atorvastatin (LIPITOR) Take 20 mg by 0 Active 20 mg tablet mouth at bedtime. FLUTICASONE PROPIONATE Inhale. 0 Active (FLUTICASONE INHALE) metFORMIN (GLUCOPHAGE) Take 500 mg 0 Active 1,000 mg tablet by mouth 2 (two) times daily with meals. cetirizine (ZYRTEC) 10 Take 10 mg by 0 Active mg tablet mouth as needed for Allergies. metFORMIN 500 mg tablet Take 500 mg 0 Active by mouth 2 (two) times daily with meals. Biotin 10 mg Tab Take 1 tablet 0 Active by mouth daily. docusate (STOOL Take 200 mg 0 Ac tive SOFTENER) 100 mg by mouth 2 capsule (two) times daily. diphenhydrAMINE Take 25 mg by 0 Active (BENADRYL ALLERGY) 25 mouth every 6 mg tablet (six) hours as needed for Itching or Allergies. ondansetron 4 mg tablet Take 1 tablet 12 tablet 0 11/24/19 Active by mouth 18 every 8 (eight) hours as needed for Nausea and Vomiting (N/V). guaiFENesin (MUCINEX) Take 1 tablet 20 tablet 0 01/06/20 Active 600 mg tablet by mouth 18 every 12 (twelve) hours. benzocaine-menthol Take 1 12 Lozenge 0 01/06/20 Active (CEPACOL SORE THROAT, Lozenge by 18 THEODORA-MEN,) lozenge mouth every 2 (two) hours as needed for 48 Hours for Sore throat. ferrous sulfate 325 mg Take 325 mg 0 Active (65 mg iron) tablet by mouth 3 (three) times daily with meals. gabapentin 100 mg Take 100 mg 0 Active capsule by mouth 3 (three) times daily. traMADoL 100 mg capsule Take 50 mg by 0 Active mouth. KCL 20 mEq Take 1 tablet 30 tablet 0 08/14/20 Activ e tabletIndications: by mouth 20 Edema, unspecified type daily. magnesium oxide 420 mg Take 420 mg 60 tablet 0 08/14/20 Active TabIndications: Edema, by mouth 2 20 unspecified type (two) times daily. furosemide 40 mg Take 1 tablet 30 tablet 0 08/14/20 Active tabletIndications: by mouth 20 Edema, unspecified type daily. lisinopriL 10 mg Take 1 tablet 30 tablet 0 08/14/20 Active tabletIndications: by mouth 20 Edema, unspecified type daily. amLODIPine (NORVASC) Take 10 mg by 0 08/14 Discontinued 2.5 mg tablet mouth daily. 020 OMEPRAZOLE ORAL Take 40 mg by 0 Discontinued mouth. 020 (Patient Reported) hydrochlorothiazide Take 12.5 mg 0 Discontinued (ESIDRIX) 12.5 mg by mouth 020 capsule daily. lisinopril Take 5 mg by 0 Discon tinued (PRINIVIL,ZESTRIL) 5 mg mouth daily. 020 (Reorder) tablet phenazopyridine Take 1 tablet 9 tablet 0 06/05/20 Discontinued (PYRIDIUM) 200 mg by mouth 3 16 020 tablet (three) times daily. amLODIPine 10 mg tablet Take 10 mg by 0 Discontinued mouth daily. 020 furosemide 20 mg tablet Take 20 mg by 0 Discontinued mouth as 020 (Reorder) needed. rivaroxaban 15 mg Take 15 mg by 0 Discontinued tablet mouth daily. 020 albuterol (VENTOLIN Inhale 2 8.5 g 0 07/13/20 Discontinued HFA) 90 mcg/actuation Puffs every 6 20 020 inhalerIndications: SOB (six) hours (shortness of breath) as needed for Shortness of Breath or Chest tightness for up to 30 days. nitrofurantoin 100 mg Take 100 mg 0 Discontinued capsule by mouth 4 020 (four) times daily. proCHLORperazine 10 mg Take 10 mg by 0 14/11 Discontinued tablet mouth every 6 020 (six) hours as needed. documented as of this encounter (statuses as of 08/14/2020) Active Problems Problem Noted Date Pulmonary hypertension 08/13/2020 Essential hypertension 08/12/2020 Atrial fibrillation with RVR 08/12/2020 Dyslipidemia 08/12/2020 Type 2 diabetes mellitus with other specified complica tion 08/12/2020 Acute on chronic diastolic CHF (congestive heart failu re), NYHA class 3 08/12/2020 Anemia 08/11/2020 Post-op pain 09/05/2017 documented as of this encounter (statuses as of 08/14/2020) Immunizations Name Administration Dates Next Due Influenza [...] with No / Unsure 08/11/2020 5:45 PM ROOFER APPRENTICE someone who was confirmed or suspected to have Coronavirus / COVID-19? documented as of this encounter Last Filed Vital Signs Vital Sign Reading Time Taken Comments Blood Pressure 110/50 08/14/2020 11:58 AM ROOFER APPRENTICE Pulse 55 08/14/2020 11:58 AM ROOFER APPRENTICE Temperature 36.6 C (97.8 F) 08/14/2020 11:58 AM ROOFER APPRENTICE Respiratory Rate 18 08/14/2020 11:58 AM ROOFER APPRENTICE Oxygen Saturation 97% 08/14/2020 11:58 AM ROOFER APPRENTICE Inhaled Oxygen Concentration - - Weight 82.1 kg (181 lb) 08/13/2020 3:33 AM ROOFER APPRENTICE Height 170.2 cm (5' 7") 08/11/2020 10:04 PM ROOFER APPRENTICE Body Mass Index 28.35 08/11/2020 10:04 PM ROOFER APPRENTICE documented in this encounter Discharge Instructions AttachmentsThe following attachments cannot be sent through Care Everywhere. Activity Tips, Diabetes (Micronesian)Atrial Fibrillation, Discharge Instructions for (Micronesian)Heart Failure, Congestive (CHF) (Micronesian)Potassium Chloride Oral powder (Micronesian)Magnesium Hydroxide chewable tablets (Micronesian)Lisinopril tablets (Micronesian)Furosemide tablets (Micronesian)documented in this encounter Progress Notes Yovany Villafuerte MD - 08/14/2020 1:57 PM CST Renal Progress Note Date of Service: 08/14/2020 No overnight events reported CURRENT MEDICATIONS - reviewed. Current Facility-Administered Medications Medication Dose Route Frequency Last Rate Last Admin KCL (KLOR-CON M20) tablet 40 mEq 40 mEq Oral BID 40 mEq at 08/14/20914 magnesium oxide (MAG-OX 400) tablet 400 mg 400 mg Oral QHS 400 mg at 08/13/202028 pantoprazole (PROTONIX) 40 mg in NaCl 0.9% (NS) 100 mL MINI-BAG 40 mg IV Piggyback Q12H 40 mgat 08/14/20914 Polyethylene Glycol 3350 (MIRALAX) powder 17 g 17 g Oral BID 17 g at 08/14/20 0915 acetaminophen (TYLENOL) tablet 650 mg 650 mg Oral Q6HPRN amLODIPine (NORVASC) tablet 10 mg 10 mg Oral DAILY 10 mg at 08/14/20914 atenoloL (TENORMIN) tablet 100 mg 100 mg Oral BID 100 mg at 08/14/20 0915 atorvastatin (LIPITOR) tablet 20 mg 20 mg Oral QHS 20 mg at 08/13/202028 dextrose 50 % in water (D50W) injection 25 mL 25 mL Slow IV Push PRN docusate (COLACE) capsule 200 mg 200 mg Oral BID 200 mg at 08/14/20 0915 furosemide (LASIX) injection 40 mg 40 mg Slow IV Push TID 40 mg at 08/14/20 0914 gabapentin (NEURONTIN) capsule 100 mg 100 mg Oral TID 100 mg at 08/14/20 0915 glucagon (GLUCAGEN DIAGNOSTIC KIT) injection 1 mg 1 mg Intramuscular PRN ipratropium-albuteroL (DUONEB) 0.5 mg-3 mg(2.5 mg base)/3 mL nebulizer solution 3 mL 3 mL Inhalation QIDPRN labetaloL (NORMODYNE) injection 10 mg 10 mg Slow IV Push Q6HPRN 10 mg at 08/12/20 1616 ondansetron (ZOFRAN (PF)) injection 4 mg 4 mg Slow IV Push Q6HPRN Sliding Scale Insulin-Regular + Fsbg Testing Subcutaneous AC+HS Stopped at 08/13/20 0730 PHYSICAL EXAM: Patient Vitals for the past 24 hrs: BP Temp Temp src Pulse Resp SpO2 08/14/20 1158 110/50 36.6 C (97.8 F) Tympanic 55 18 97 % 08/14/20 0755 59 18 99 % 08/14/20 0740 116/54 36.2 C (97.1 F) Tympanic 61 20 96 % 08/14/20 0340 130/61 36.7 C (98 F) TEMPORAL ART 52 18 96 % 08/13/20 2328 128/60 37.1 C (98.7 F) TEMPORAL ART 54 16 95 % 08/13/20 2226 57 17 94 % 08/13/20 1936 138/51 37.2 C (99 F) TEMPORAL ART 57 18 94 % 08/13/20 1556 130/73 Intake/Output Summary (Last 24 hours) at 08/14/2020 1357 Last data filed at 08/14/2020 0820 Gross per 24 hour Intake 236 ml Output 600 ml Net -364 ml NAD RRR no MRG CTA B/L Soft NTND No sig edema LABS/IMAGING - reviewed, pertinent results as below: CBC BMP PT/INR WBC (10*3/L) Date Value 08/14/2020 3.91 (L) NA (mmol/L) Date Value 08/14/2020 124 (L) No results found for: PT RBC (10*6/L) Date Value 08/14/2020 2.17 (L) K (mmol/L) Date Value 08/14/2020 3.9 INR (no units) Date Value 09/05/2017 1.0 PLT (10*3/L) Date Value 08/14/2020 100 (L) CALCIUM (mg/dL) Date Value 08/14/2020 8.2 (L) HGB (g/dL) Date Value 08/14/2020 7.5 (L) CL (mmol/L) Date Value 08/14/2020 87 (L) aPTT HCT (%) Date Value 08/14/2020 20.9 (L) BUN (mg/dL) Date Value 08/14/2020 22 APTT Patient (Seconds) Date Value 09/03/2017 49 (H) CREATININE (mg/dL) Date Value 08/14/2020 1.04 Radiology: No final results containing an impression from the past 2 days were found. ASSESSMENT/PLAN Yuliya Kelley is a 74 year old female with PMH as listed above, admitted to the hospital with: Hyponatremia - 2/2 vol overload ; cortisol/thyroid noted Proteinuria - likely 2/2 diabetic nephropathy; will need to continue outpt workup; start lisinopril 10mg daily Vol overload - on diuretics; d/c amlodipine 2/2 edema HTN - as above Ovarian cancer - onc follow up Electrolyte imbalance - K/Mg corrected; d/c on KCL 10meq daily; mg ox 400mg bid Diastolic CHF - continue diuretics; maintain K>2 Mg >4; consider spironolactone - cardiology follow up Yovany Villafuerte MD 08/14/2020 1:57 PM Alexi Tamayo MD - 08/13/2020 5:40 PM CST [facility] Hospitalist Progress Note SUBJECTIVE: Feels much better today. CURRENT MEDICATIONS - reviewed. Current Facility-Administered Medications Medication Dose Route Frequency Last Rate Last Admin KCL (KLOR-CON M20) tablet 40 mEq 40 mEq Oral DAILY 40 mEq at 08/13/20 0910 pantoprazole (PROTONIX) 40 mg in NaCl 0.9% (NS) 100 mL MINI-BAG 40 mg IV Piggyback Q12H 40 mgat 08/13/20 1348 Polyethylene Glycol 3350 (MIRALAX) powder 17 g 17 g Oral BID 17 g at 08/13/20 1343 acetaminophen (TYLENOL) tablet 650 mg 650 mg Oral Q6HPRN amLODIPine (NORVASC) tablet 10 mg 10 mg Oral DAILY 10 mg at 08/13/20 0910 atenoloL (TENORMIN) tablet 100 mg 100 mg Oral BID 100 mg at 08/13/20 0910 atorvastatin (LIPITOR) tablet 20 mg 20 mg Oral QHS 20 mg at 08/12/20 2105 dextrose 50 % in water (D50W) injection 25 mL 25 mL Slow IV Push PRN docusate (COLACE) capsule 200 mg 200 mg Oral BID 200 mg at 08/13/20 0911 furosemide (LASIX) injection 40 mg 40 mg Slow IV Push TID 40 mg at 08/13/20 1343 gabapentin (NEURONTIN) capsule 100 mg 100 mg Oral TID 100 mg at 08/13/20 1343 glucagon (GLUCAGEN DIAGNOSTIC KIT) injection 1 mg 1 mg Intramuscular PRN ipratropium-albuteroL (DUONEB) 0.5 mg-3 mg(2.5 mg base)/3 mL nebulizer solution 3 mL 3 mL Inhalation QIDPRN labetaloL (NORMODYNE) injection 10 mg 10 mg Slow IV Push Q6HPRN 10 mg at 08/12/20 1616 ondansetron (ZOFRAN (PF)) injection 4 mg 4 mg Slow IV Push Q6HPRN Sliding Scale Insulin-Regular + Fsbg Testing Subcutaneous AC+HS Stopped at 08/13/20 0730 traMADoL (ULTRAM) tablet 50 mg 50 mg Oral Q8HPRN PHYSICAL EXAM: BP 135/70 | Pulse 70 | Temp 36.8 C (98.2 F) (Temporal Artery) | Resp 18 | Ht 5' 7" (1.702 m) | Wt 181 lb (82.1 kg) | SpO2 93% | BMI 28.35 kg/m General: No respiratory distress HEENT: Anicteric sclerae, NCAT Lungs: Symmetric expansion Abdomen: Soft, NTND Musculoskeletal: Normal muscle mass, no synovitis Skin: No rash or lesions Neuro: AAOx3, no focal deficits Psych: Normal affect LABS/IMAGING - reviewed, pertinent results as below: CBC BMP PT/INR WBC (10*3/L) Date Value 08/13/2020 3.73 (L) NA (mmol/L) Date Value 08/13/2020 125 (L) No results found for: PT RBC (10*6/L) Date Value 08/13/2020 2.27 (L) K (mmol/L) Date Value 08/13/2020 3.1 (L) INR (no units) Date Value 09/05/2017 1.0 PLT (10*3/L) Date Value 08/13/2020 102 (L) CALCIUM (mg/dL) Date Value 08/13/2020 8.6 HGB (g/dL) Date Value 08/13/2020 7.5 (L) CL (mmol/L) Date Value 08/13/2020 88 (L) aPTT HCT (%) Date Value 08/13/2020 21.4 (L) BUN (mg/dL) Date Value 08/13/2020 20 APTT Patient (Seconds) Date Value 09/03/2017 49 (H) CREATININE (mg/dL) Date Value 08/13/2020 0.94 IMAGING- Hospital Encounter on 08/11/20 CT CHEST PULMONARY ANGIOGRAM Narrative PROCEDURE: CT ANGIO CHEST WITH CONTRAST - PE PROTOCOL CLINICAL INDICATION: 74-year-old female with history of cancer presenting with leg swelling as well as shortness of breath. She was sent by her oncologist for evaluation of blood clots. She is on Xarelto for atrial fibrillation. COMPARISON: Chest radiograph 07/13/2020, CT abdomen and pelvis 11/24/2017. TECHNIQUE: Helical CT was performed and reconstructed at 1.25 mm slice thickness from lung bases to apices using intravenous contrast, without complication. 3D axial MIPS and coronal MPRS were generated under radiologist supervision, and reviewed to further define anatomy and possible pathology. (DFOV = 30 cm) FINDINGS: PULMONARY ARTERIES: Enhancement is satisfactory. Limited evaluation of the subsegmental branches due to motion and mixing artifact. No filling defect is identified within the pulmonary trunk down to the segmental levels. No CT signs of right heart strain is noted. CHEST: Lower neck/thyroid: A 0.9 cm hypoattenuating left thyroid nodule.. Lungs: Bilateral mosaic attenuation, septal and peribronchial thickening is noted. Moderate bilateral pleural effusion and compression atelectasis of the dependent lungs is seen. Inferior lingular atelectasis/consolidation is seen. Central airway: Unremarkable. Pleura: No pleural effusion, thickening or pneumothorax. Thoracic aorta and great vessels: Normal in diameter. Heart and pericardium: Mild coronary arterial calcification. Mitral annular calcification is seen. Biatrial dilatation is noted. Lymph nodes: Few calcified hilar lymph nodes are noted. No enlarged thoracic lymph nodes. Mediastinum: Unremarkable. Thoracic spine and chest wall: Unremarkable, with normal thoracic vertebral body heights. Other Lines/Tubes/Devices/Hardware: None Visualized upper abdomen: Previously identified hypoattenuating hepatic lesions are not well evaluated on the current exam and not visualized.. Impression 1. No pulmonary embolism. 2. Pulmonary edema and moderate bilateral pleural effusion, likely secondary to fluid overload/congestive heart failure. Preliminary Report Dictated by Resident: Eber Ellis I, Andrew Belcher MD., have reviewed this study and agree with the above report. XR CHEST 1 VW Narrative CHEST PORTABLE ONE VIEW HISTORY:Edema TECHNIQUE: Frontal, portable projection of the chest is obtained. COMPARISON: 07/13/2020 FINDINGS: Slight prominence of the central vascularity seen. Heart size is enlarged. Blunting of the left costophrenic angle is noted. A right-sided Port-A-Cath is unchanged in position. An old healed rib fracture is seen involving the right seventh rib. CONCLUSIONS: 1. Mild pulmonary edema, cardiomegaly and small left pleural effusion ASSESSMENT/PLAN Yuliya Kelley is a 74 year old female with PMH as listed above, admitted to the hospital with: Acute symptomatic anemia No evidence of blood loss. Likely 2/2 chemotherapy with hx ovarian cancer. Received 1u pRBC. Iron studies consistent with ACD. Trend Hb Acute diastolic CHF Echo shows preserved EF, elevated pressures, diastolic dysfunction IV lasix. Strict I/Os. Cardiology on board Hyponatremia, likely hypervolemic Improving with IV diuresis Trend BMP Nephrology on board Hypokalemia, hypomagnesemia Replete po Hx metastatic ovarian cancer On chemotherapy. Has PET scan scheduled. Follows with Oncology as outpatient HTN On amlodipine, atenolol Prophylaxis: DVT- SCD Stress Ulcer: no indication for prophylaxis Code Status: Full Disposition: Home tomorrow Alexi Bacon MD ai, MD Sharon - 08/13/2020 8:29 AM CST [facility] Cardiology progress note Date of Service: 08/13/2020 Yuliya Kelley is a 74 years old female hospitalized for anemia and HF. Feeling better. Good UOP. PHYSICAL EXAM Vitals: 08/12/20 2303 08/13/20 0333 08/13/20 0737 08/13/20 0814 BP: 134/59 (!) 143/64 (!) 148/72 Pulse: 55 66 72 64 Resp: 20 Temp: 35.7 C (96.3 F) 35.9 C (96.6 F) 36.1 C (97 F) TempSrc: Temporal Artery Temporal Artery Temporal Artery SpO2: 99% 99% 96% 97% Weight: 82.1 kg (181 lb) Height: General: alert and oriented x 3 (person, place and date/time); no apparent distress HEENT: normocephalic atraumatic Neck: supple, no lymphadenopathy, no bruits, no JVD Lungs: clear to auscultation bilaterally Cardio: S1, S2, normal rate, irregular; no murmurs, rubs or gallops Abdomen: non-distended : not examined Rectal: not examined Extremities: no clubbing, cyanosis, or edema Skin: no rashes Neuro: no focal deficits Medications: I have reviewed the patient's medications; see Medication Reconciliation. Labs: I have reviewed the patient's labs. ASSESSMENT AND PLAN Principal Problem: Anemia Active Problems: Essential hypertension Atrial fibrillation with RVR Dyslipidemia Type 2 diabetes mellitus with other specified complication Acute on chronic diastolic CHF (congestive heart failure), NYHA class 3 Pulmonary hypertension Acute exacerbation of CHF: diastolic HF. Excerberated in the setting of anemia. Continue IV lasix 40 mg TID. Titrate as needed. Good UOP. Improved symptoms. Low salt diet. I/O. Daily weight. ECHO showed normal LVEF. Tele monitoring. Symptomatic anemia: Recommend to keep Hb > 8. T2DM: As per primary team. Atrial fibrillation: Rate is controlled. Continue Atenolol 100 mg daily. Hold xarelto due to anemia. HTN: On Atenolol 100 mg daily, Norvasc 10 mg daily. Will monitor. BP varies. Dyslipidemia: On lipitor 20 mg daily. Primary lean engineer: Dr Boni Hopkins MD, [facility], [facility] Silk Trimmer, Division of Cardiology [facility] Sanket Angela RN - 08/12/2020 10:17 AM CSTCare Management Social Functional Assessment Patient Name: Yuliya Kelley Age: [age] year old Sex: female Patient's Previous Admission Date at [facility]: 09/05/2017 Current diagnosis and co-morbidities: Anemia Readmission Questions: Was patient discharged from any acute care hospital within the last 30 days: No Social Functional Assessment: Primary language spoken/preferred: Micronesian Mental Status: Alert & Oriented to Person,Place & Time Information given by: Self Patient's support system: Spouse Name and number of support system: [place] spouse [phone] Primary Ceramic Design Engineer: Self MPOA: Same as support system Living Arrangement: Home Address of living arrangement : [address] [place] [address] Mark Persons living in home: Same as support system Barriers to returning home: None Baseline functional status- ambulation: Independent Functional status-baseline personal care: Independent Baseline functional status- driving: Independent Baseline functional status- grocery shopping: Independent Functional status-baseline housekeeping: Independent Functional status-baseline meal prep: Independent Current functional status same as prior: Yes Do you have a PCP?: Yes Name of PCP: [facility] Agency: No Provider Services: No DME Company: No Equipment: Walker;Rollator;Cane Hemodialysis: No Funding Resources: Medicare Replacement [facility] Prescription coverage plan: Medicare Part D Pharmacy where meds are filled: ([facility]) Anticipated services prior to disharge: Continue Medical Eval Expected mode of discharge transportation: Same as support system Additional info required for discharge planning: Pending medical evaluation Recommended discharge plan: Home SFA Complete: Social Functional Assessment complete: Yes Alcohol Use Screening (AUDIT-C) How often do you have a drink containing alcohol?: Never SCORE: 0 Role of Care Management explained. Yes Any issues or concerns with obtaining/affording your medications at home: no. Are you or your support system able to peanut picker medications at discharge: yes. Describe: Sanket Florence RN, BSN [facility] ADC Landscape Foreman [phone] . ER APPRENTICE documented in this encounter H&P Notes Carmina Serra MD - 08/12/2020 12:27 AM CST MEDICINE ADC ADMIT H&P Date of Service: 08/12/2020 CHIEF COMPLAINT: shortness of breath, lower extremity swelling History of Present Illness 74 year-old female with pmh of metastatic ovarian cancer (on chemotherapy 07/21), DM, AF, HLD, HTN, pancreatitis, spinal stenosis, PUD who presented to the secondary to shortness of breath and lower extremity swelling. Patient states that this occurred a week before the chemotherapy but it worsened shortly after chemotherapy. She describes the intermittent dyspnea with exertion and PND. +Productivecough (whitish sputum). +chest tightness (generalized improved with rescue inhaler). 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 Diabetes mellitus Hyperlipidemia Hypertension Pancreatitis Post-operative nausea and vomiting Spinal stenosis Ulcer of esophagus Past Surgical History: Procedure Laterality Date BREAST BIOPSY CLAVICLE ORIF Left KNEE ARTHROSCOPY Bilateral SPINE SURGERY TOTAL KNEE ARTHROPLASTY Left 09/05/2017 Surgeon: Olayinka Garcia MD; Location: [facility] TUBAL LIGATION Family History Problem Relation Age of Onset Hypertension Mother Diabetes Father High cholesterol Father Hypertension Father ALLERGIES Allergies Allergen Reactions Demerol [Meperidine Hcl] Nausea and/or Vomiting MEDICATIONS No current facility-administered medications on file prior to encounter. Current Outpatient Medications on File Prior to Encounter Medication Sig Dispense Refill ferrous sulfate 325 mg (65 mg iron) tablet Take 325 mg by mouth 3 (three) times daily with meals. gabapentin 100 mg capsule Take 100 mg by mouth 3 (three) times daily. nitrofurantoin 100 mg capsule Take 100 mg by mouth 4 (four) times daily. proCHLORperazine 10 mg tablet Take 10 mg by mouth every 6 (six) hours as needed. traMADoL 100 mg capsule Take 50 mg by mouth. albuterol (VENTOLIN HFA) 90 mcg/actuation inhaler Inhale 2 Puffs every 6 (six) hours as needed for Shortness of Breath or Chest tightness for up to 30 days. 8.5 g 0 ondansetron 4 mg tablet Take 1 tablet by mouth every 8 (eight) hours as needed for Nausea and Vomiting (N/V). 12 tablet 0 amLODIPine 10 mg tablet Take 10 mg by mouth daily. Biotin 10 mg Tab Take 1 tablet by mouth daily. furosemide 20 mg tablet Take 20 mg by mouth as needed. cetirizine (ZYRTEC) 10 mg tablet Take 10 mg by mouth as needed for Allergies. lisinopril (PRINIVIL,ZESTRIL) 5 mg tablet Take 5 mg by mouth daily. atenolol (TENORMIN) 100 mg tablet Take 100 mg by mouth 2 (two) times daily. atorvastatin (LIPITOR) 20 mg tablet Take 20 mg by mouth at bedtime. metFORMIN (GLUCOPHAGE) 1,000 mg tablet Take 500 mg by mouth 2 (two) times daily with meals. benzocaine-menthol (CEPACOL SORE THROAT, THEODORA-MEN,) lozenge Take 1 Lozenge by mouth every 2 (two) hours as needed for 48 Hours for Sore throat. 12 Lozenge 0 guaiFENesin (MUCINEX) 600 mg tablet Take 1 tablet by mouth every 12 (twelve) hours. 20 tablet 0 diphenhydrAMINE (BENADRYL ALLERGY) 25 mg tablet Take 25 mg by mouth every 6 (six) hours as needed for Itching or Allergies. docusate (STOOL SOFTENER) 100 mg capsule Take 200 mg by mouth 2 (two) times daily. metFORMIN 500 mg tablet Take 500 mg by mouth 2 (two) times daily with meals. rivaroxaban 15 mg tablet Take 15 mg by mouth daily. hydrochlorothiazide (ESIDRIX) 12.5 mg capsule Take 12.5 mg by mouth daily. phenazopyridine (PYRIDIUM) 200 mg tablet Take 1 tablet by mouth 3 (three) times daily. 9 tablet 0 OMEPRAZOLE ORAL Take 40 mg by mouth. amLODIPine (NORVASC) 2.5 mg tablet Take 10 mg by mouth daily. FLUTICASONE PROPIONATE (FLUTICASONE INHALE) Inhale. SOCIAL HISTORY Social History Socioeconomic History Marital status: Spouse [...] file Gets together: Not on file Attends advent service: Not on file Active member of [...] file Social History Narrative Not on file Review of Systems Constitutional: Positive for appetite change. Negative for activity change, chills, diaphoresis, fatigue, fever and unexpected weight change. HENT: Positive for congestion and postnasal drip. Negative for dental problem, drooling, ear discharge, ear pain, facial swelling, hearing loss, mouth sores, nosebleeds, rhinorrhea, sinus pressure, sneezing, sore throat, tinnitus, trouble swallowing and voice change. Eyes: Negative. Respiratory: Positive for chest tightness and shortness of breath. Negative for apnea, cough, choking, wheezing and stridor. Gastrointestinal: Negative for abdominal distention, abdominal pain, anal bleeding, blood in stool, constipation, diarrhea, nausea, rectal pain and vomiting. Genitourinary: Negative. Musculoskeletal: Negative. Negative for neck pain and neck stiffness. Skin: Negative. Neurological: Positive for weakness. Negative for dizziness, tremors, seizures, syncope, facial asymmetry, speech difficulty, light-headedness, numbness and headaches. Psychiatric/Behavioral: Negative. Endocrine: Endocrine negative PHYSICAL EXAMINATION Vitals: 08/11/20 1800 08/11/20 2000 08/11/20 2100 08/11/20 2204 BP: (!) 115/99 (!) 161/73 (!) 169/73 (!) 173/72 Pulse: 78 83 75 77 Resp: Temp: 35.6 C (96 F) TempSrc: Temporal Artery SpO2: 96% 98% 96% 98% Weight: 81.8 kg (180 lb 7 oz) Height: 1.702 m (5' 7") Physical Exam Constitutional: She is oriented to person, place, and time. She appears well- developed and well-nourished. No distress. HENT: Head: Normocephalic and atraumatic. Right Ear: External ear normal. Left Ear: External ear normal. Eyes: Pupils are equal, round, and reactive to light. Conjunctivae and EOM are normal. Right eye exhibits no discharge. Left eye exhibits no discharge. No scleral icterus. Neck: Normal range of motion. Cardiovascular: Normal rate and regular rhythm. Pulmonary/Chest: Effort normal. No respiratory distress. She exhibits no tenderness. Abdominal: Soft. She exhibits no distension. There is no abdominal tenderness. There is no guarding. Musculoskeletal: Normal range of motion. General: Edema (2+ pitting edema in the lowrr extremities) present. No tenderness. Comments: Inspection and palpation of the knee and ankles bilaterally reveal no abnormality. Neurological: She is alert and oriented to person, place, and time. Skin: Skin is warm and dry. No rash noted. No erythema. No pallor. Psychiatric: Her behavior is normal. Judgment and thought content normal. LABS - reviewed pertinent labs as below: Reviewed IMAGING - reviewed, pertinent results as below: PROCEDURE: CT ANGIO CHEST WITH CONTRAST - PE PROTOCOL CLINICAL INDICATION: 74-year-old female with history of cancer presenting with leg swelling as well as shortness of breath. She was sent by her oncologist for evaluation of blood clots. She is on Xarelto for atrial fibrillation. COMPARISON: Chest radiograph 07/13/2020, CT abdomen and pelvis 11/24/2017. TECHNIQUE: Helical CT was performed and reconstructed at 1.25 mm slice thickness from lung bases to apices using intravenous contrast, without complication. 3D axial MIPS and coronal MPRS were generated under radiologist supervision, and reviewed to further define anatomy and possible pathology. (DFOV = 30 cm) FINDINGS: PULMONARY ARTERIES: Enhancement is satisfactory. Limited evaluation of the subsegmental branches due to motion and mixing artifact. No filling defect is identified within the pulmonary trunk down to the segmental levels. No CT signs of right heart strain is noted. CHEST: Lower neck/thyroid: A 0.9 cm hypoattenuating left thyroid nodule.. Lungs: Bilateral mosaic attenuation, septal and peribronchial thickening is noted. Moderate bilateral pleural effusion and compression atelectasis of the dependent lungs is seen. Inferior lingular atelectasis/consolidation is seen. Central airway: Unremarkable. Pleura: No pleural effusion, thickening or pneumothorax. Thoracic aorta and great vessels: Normal in diameter. Heart and pericardium: Mild coronary arterial calcification. Mitral annular calcification is seen. Biatrial dilatation is noted. Lymph nodes: Few calcified hilar lymph nodes are noted. No enlarged thoracic lymph nodes. Mediastinum: Unremarkable. Thoracic spine and chest wall: Unremarkable, with normal thoracic vertebral body heights. Other Lines/Tubes/Devices/Hardware: None Visualized upper abdomen: Previously identified hypoattenuating hepatic lesions are not well evaluated on the current exam and not visualized.. IMPRESSION 1. No pulmonary embolism. 2. Pulmonary edema and moderate bilateral pleural effusion, likely secondary to fluid overload/congestive heart failure. Preliminary Report Dictated by Resident: Eber Ellis I, Andrew Belcher MD., have reviewed this study and agree with the above report. ASSESSMENT/PLAN Yuliya Kelley is a 74 year old female with PMH as listed above, admitted to the hospital with: 1. Acute exacerbation of CHF (congestive heart failure): likely diagnosis -- Continue active diuresis -- Daily weights, strict intake/output, free water restriction -- Check serial troponins -- Echocardiogram is pending 2. Symptomatic anemia: could be a component to the shortness of breath. Likely anemic due to chemoradiation -- Transfuse as needed -- Anemia workup has been ordered. 3. Hypervolemic hyponatremia: -- Will continue with active diuresis 4. DM: slightly controlled -- Will continue with outpatient glycemic agent -- ISS 5. Atrial fibrillation: rate controlled -- Will resume outpatient rate controlling medication -- Will continue with outpatient anticoagulation 6. Hypertensive urgency: -- Will continue outpatient antihypertensive agent -- Labetalol prn Prophylaxis: DVT- on Xarelto Code Status: addressed: FC Estimated LOS: This inpatient admission will likely require greater than or equal to 2 Midnights. Management is not feasible as an outpatient and there is concern for adverse outcomes if not managed in an inpatient setting. Advance care planning discussed for 16 mins with patient at bedside. Surrogate decision maker: [place] (spouse) - [phone] documented in this encounter Consult Notes Gurjit Johnson DO - 08/13/2020 12:31 PM CSTAssociated Order(s): CONSULT NEPHROLOGY Nephrology Consult Admit Date: 08/11/2020 PCP: Taryn Silva Referring Physician: Dr. Bacon Reason for Referral: Hyponatremia Admitting Dx: Anemia CHIEF COMPLAINT: Dyspnea with edema HISTORY OF PRESENT ILLNESS: Yuliya Kelley is a 74 year old female that presented to the ER with moderate, progressive dyspnea with associated edema. 74 year-old female with pmh of metastatic ovarian cancer (on chemotherapy 07/21), DM, AF, HLD, HTN, pancreatitis, spinal stenosis, PUD who presented to the secondary to shortness of breath and lower extremity swelling. Patient states that this occurred a week before the chemotherapy but it worsened shortly after chemotherapy. She describes the intermittent dyspnea with exertion and PND. +Productivecough (whitish sputum). +chest tightness (generalized improved with rescue inhaler). ROS as stated above. All other ROS negative. Temp: [35.7 C (96.3 F)-36.8 C (98.2 F)] Pulse: [54-72] Resp: [16-20] BP: (131-148)/(55-72) MAP (mmHg): [78-83] PE: Gen: NAD HEENT: NCAT. MMM. Neck: Supple. No LAD. Lungs: CTA CVS: RRR Abd: Soft. NT. +BS Ext: No C/C. LE Edema 1+ Skin: No rash Psych: AAO Neuro: Normal speech ASSESSMENT/PLAN Yuliya Kelley is a 74 year old female with PMH as listed above, admitted to the hospital with: The primary encounter diagnosis was Shortness of breath. Diagnoses of Hypervolemia, unspecified hypervolemia type and Edema, unspecified type were also pertinent to this visit. A/ Proteinuria Hypervolemic Hyponatremia Hypokalemia Hypomagnesemia HTN Diastolic CHF, A/C Pleural effusion Pulmonary HTN DM II with CKD Anemia in chronic illness P/ Continue current POC and Medications other than changes listed below. Please see chart and orders for complete details. Continue Lasix Increase potassium Replete magnesium Transfuse PRBC as needed. No NSAIDs. AM labs. Daily weight. Thank you kindly for the consultation. Vitals: 08/13/20 0333 08/13/20 0737 08/13/20 0814 08/13/20 1200 BP: (!) 143/64 (!) 148/72 135/70 Pulse: 66 72 64 70 Resp: Temp: 35.9 C (96.6 F) 36.1 C (97 F) 36.8 C (98.2 F) TempSrc: Temporal Artery Temporal Artery Temporal Artery SpO2: 99% 96% 97% 93% Weight: 82.1 kg (181 lb) Height: LABS - reviewed in the chart: CBC BMP PT/INR WBC (10*3/L) Date Value 08/13/2020 3.73 (L) NA (mmol/L) Date Value 08/13/2020 125 (L) No results found for: PT RBC (10*6/L) Date Value 08/13/2020 2.27 (L) K (mmol/L) Date Value 08/13/2020 3.1 (L) INR (no units) Date Value 09/05/2017 1.0 PLT (10*3/L) Date Value 08/13/2020 102 (L) CALCIUM (mg/dL) Date Value 08/13/2020 8.6 HGB (g/dL) Date Value 08/13/2020 7.5 (L) CL (mmol/L) Date Value 08/13/2020 88 (L) aPTT HCT (%) Date Value 08/13/2020 21.4 (L) BUN (mg/dL) Date Value 08/13/2020 20 APTT Patient (Seconds) Date Value 09/03/2017 49 (H) CREATININE (mg/dL) Date Value 08/13/2020 0.94 IMAGING - reviewed in the chart: Hospital Encounter on 08/11/20 CT CHEST PULMONARY ANGIOGRAM Narrative PROCEDURE: CT ANGIO CHEST WITH CONTRAST - PE PROTOCOL CLINICAL INDICATION: 74-year-old female with history of cancer presenting with leg swelling as well as shortness of breath. She was sent by her oncologist for evaluation of blood clots. She is on Xarelto for atrial fibrillation. COMPARISON: Chest radiograph 07/13/2020, CT abdomen and pelvis 11/24/2017. TECHNIQUE: Helical CT was performed and reconstructed at 1.25 mm slice thickness from lung bases to apices using intravenous contrast, without complication. 3D axial MIPS and coronal MPRS were generated under radiologist supervision, and reviewed to further define anatomy and possible pathology. (DFOV = 30 cm) FINDINGS: PULMONARY ARTERIES: Enhancement is satisfactory. Limited evaluation of the subsegmental branches due to motion and mixing artifact. No filling defect is identified within the pulmonary trunk down to the segmental levels. No CT signs of right heart strain is noted. CHEST: Lower neck/thyroid: A 0.9 cm hypoattenuating left thyroid nodule.. Lungs: Bilateral mosaic attenuation, septal and peribronchial thickening is noted. Moderate bilateral pleural effusion and compression atelectasis of the dependent lungs is seen. Inferior lingular atelectasis/consolidation is seen. Central airway: Unremarkable. Pleura: No pleural effusion, thickening or pneumothorax. Thoracic aorta and great vessels: Normal in diameter. Heart and pericardium: Mild coronary arterial calcification. Mitral annular calcification is seen. Biatrial dilatation is noted. Lymph nodes: Few calcified hilar lymph nodes are noted. No enlarged thoracic lymph nodes. Mediastinum: Unremarkable. Thoracic spine and chest wall: Unremarkable, with normal thoracic vertebral body heights. Other Lines/Tubes/Devices/Hardware: None Visualized upper abdomen: Previously identified hypoattenuating hepatic lesions are not well evaluated on the current exam and not visualized.. Impression 1. No pulmonary embolism. 2. Pulmonary edema and moderate bilateral pleural effusion, likely secondary to fluid overload/congestive heart failure. Preliminary Report Dictated by Resident: Eber Ellis I, Andrew Belcher MD., have reviewed this study and agree with the above report. XR CHEST 1 VW Narrative CHEST PORTABLE ONE VIEW HISTORY:Edema TECHNIQUE: Frontal, portable projection of the chest is obtained. COMPARISON: 07/13/2020 FINDINGS: Slight prominence of the central vascularity seen. Heart size is enlarged. Blunting of the left costophrenic angle is noted. A right-sided Port-A-Cath is unchanged in position. An old healed rib fracture is seen involving the right seventh rib. CONCLUSIONS: 1. Mild pulmonary edema, cardiomegaly and small left pleural effusion 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 Diabetes mellitus Hyperlipidemia Hypertension Pancreatitis Post-operative nausea and vomiting Spinal stenosis Ulcer of esophagus Past Surgical History: Procedure Laterality Date BREAST BIOPSY CLAVICLE ORIF Left KNEE ARTHROSCOPY Bilateral SPINE SURGERY TOTAL KNEE ARTHROPLASTY Left 09/05/2017 Surgeon: Olayinka Garcia MD; Location: [facility] TUBAL LIGATION ALLERGIES Allergies Allergen Reactions Demerol [Meperidine Hcl] Nausea and/or Vomiting MEDICATIONS reviewed in the chart. Current Facility-Administered Medications Medication Dose Route Frequency Last Rate Last Admin KCL (KLOR-CON M20) tablet 40 mEq 40 mEq Oral DAILY 40 mEq at 08/13/20 0910 pantoprazole (PROTONIX) 40 mg in NaCl 0.9% (NS) 100 mL MINI-BAG 40 mg IV Piggyback Q12H 40 mgat 08/13/20 1348 Polyethylene Glycol 3350 (MIRALAX) powder 17 g 17 g Oral BID 17 g at 08/13/20 1343 acetaminophen (TYLENOL) tablet 650 mg 650 mg Oral Q6HPRN amLODIPine (NORVASC) tablet 10 mg 10 mg Oral DAILY 10 mg at 08/13/20 0910 atenoloL (TENORMIN) tablet 100 mg 100 mg Oral BID 100 mg at 08/13/20 0910 atorvastatin (LIPITOR) tablet 20 mg 20 mg Oral QHS 20 mg at 08/12/20 2105 dextrose 50 % in water (D50W) injection 25 mL 25 mL Slow IV Push PRN docusate (COLACE) capsule 200 mg 200 mg Oral BID 200 mg at 08/13/20 0911 furosemide (LASIX) injection 40 mg 40 mg Slow IV Push TID 40 mg at 08/13/20 1343 gabapentin (NEURONTIN) capsule 100 mg 100 mg Oral TID 100 mg at 08/13/20 1343 glucagon (GLUCAGEN DIAGNOSTIC KIT) injection 1 mg 1 mg Intramuscular PRN ipratropium-albuteroL (DUONEB) 0.5 mg-3 mg(2.5 mg base)/3 mL nebulizer solution 3 mL 3 mL Inhalation QIDPRN labetaloL (NORMODYNE) injection 10 mg 10 mg Slow IV Push Q6HPRN 10 mg at 08/12/20 1616 ondansetron (ZOFRAN (PF)) injection 4 mg 4 mg Slow IV Push Q6HPRN Sliding Scale Insulin-Regular + Fsbg Testing Subcutaneous AC+HS Stopped at 08/13/20 0730 traMADoL (ULTRAM) tablet 50 mg 50 mg Oral Q8HPRN SOCIAL HISTORY Social History Socioeconomic History Marital status: Spouse [...] file Gets together: Not on file Attends advent service: Not on file Active member of [...] file Social History Narrative Not on file FAMILY History Family History Problem Relation Age of Onset Hypertension Mother Diabetes Father High cholesterol Father Hypertension Father Milan Marin MD - 08/12/2020 8:02 AM CSTAssociated Order(s): CONSULT CARDIOLOGY [facility] Cardiology Consult Note Patient: Yuliya Kelley Date of : 1945 Date of service: 08/12/2020 Primary Care Physician: Taryn Silva CHIEF COMPLAINT: Chief Complaint Patient presents with Shortness of Breath Edema HISTORY OF PRESENT ILLNESS: Yuliya Kelley is a 74 year old female presented to the ER for evaluation for [place] History from patient. Patient seen and examined in the room. Pertinent cardiac related history reviewed from chart Presented to the secondary to shortness of breath and lower extremity swelling. Patient states thatthis occurred a week before the chemotherapy but it worsened shortly after chemotherapy. She describes the intermittent dyspnea with exertion and PND. +Productive cough (whitish sputum). +chest tightness (generalized improved with rescue inhaler). Cardiology consulted secondary to elevated NT pro BNP. No chest pain at rest. No PND or orthopnea. No pedal edema. No exertional palpitations or palpitations at rest. No syncopal attacks. PMH of metastatic ovarian cancer (on chemotherapy 07/21), DM, AF, HLD, HTN, pancreatitis, spinal stenosis, PUD Previous Cardiac Studies: IMAGING - I personally reviewed, pertinent results as below: ECG 08/[address] and T wave abnormality Abnormal ECG CXR IMPRESSION 1. No pulmonary embolism. 2. Pulmonary edema and moderate bilateral pleural effusion, likely secondary to fluid overload/congestive heart failure. 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 Diabetes mellitus Hyperlipidemia Hypertension Pancreatitis Post-operative nausea and vomiting Spinal stenosis Ulcer of esophagus Past Surgical History: Procedure Laterality Date BREAST BIOPSY CLAVICLE ORIF Left KNEE ARTHROSCOPY Bilateral SPINE SURGERY TOTAL KNEE ARTHROPLASTY Left 09/05/2017 Surgeon: Olayinka Garcia MD; [place] [facility] [place]UBAL [place]IGATION Family History Problem Relation Age of Onset Hypertension Mother Diabetes Father High cholesterol Father Hypertension Father SOCIAL HISTORY Social History Socioeconomic History Marital status: Spouse [...] file Gets together: Not on file Attends advent service: Not on file Active member of [...] file Social History Narrative Not on file ALLERGIES Allergies Allergen Reactions Demerol [Meperidine Hcl] Nausea and/or Vomiting MEDICATIONS Current Discharge Medication List STOP taking these medications ferrous sulfate 325 mg (65 mg iron) tablet Comments: Reason for Stopping: gabapentin 100 mg capsule Comments: Reason for Stopping: nitrofurantoin 100 mg capsule Comments: Reason for Stopping: proCHLORperazine 10 mg tablet Comments: Reason for Stopping: traMADoL 100 mg capsule Comments: Reason for Stopping: albuterol (VENTOLIN HFA) 90 mcg/actuation inhaler Comments: Reason for Stopping: ondansetron 4 mg tablet Comments: Reason for Stopping: amLODIPine 10 mg tablet Comments: Reason for Stopping: Biotin 10 mg Tab Comments: Reason for Stopping: furosemide 20 mg tablet Comments: Reason for Stopping: cetirizine (ZYRTEC) 10 mg tablet Comments: Reason for Stopping: lisinopril (PRINIVIL,ZESTRIL) 5 mg tablet Comments: Reason for Stopping: atenolol (TENORMIN) 100 mg tablet Comments: Reason for Stopping: atorvastatin (LIPITOR) 20 mg tablet Comments: Reason for Stopping: metFORMIN (GLUCOPHAGE) 1,000 mg tablet Comments: Reason for Stopping: benzocaine-menthol (CEPACOL SORE THROAT, THEODORA-MEN,) lozenge Comments: Reason for Stopping: guaiFENesin (MUCINEX) 600 mg tablet Comments: Reason for Stopping: diphenhydrAMINE (BENADRYL ALLERGY) 25 mg tablet Comments: Reason for Stopping: docusate (STOOL SOFTENER) 100 mg capsule Comments: Reason for Stopping: metFORMIN 500 mg tablet Comments: Reason for Stopping: rivaroxaban 15 mg tablet Comments: Reason for Stopping: hydrochlorothiazide (ESIDRIX) 12.5 mg capsule Comments: Reason for Stopping: phenazopyridine (PYRIDIUM) 200 mg tablet Comments: Reason for Stopping: amLODIPine (NORVASC) 2.5 mg tablet Comments: Reason for Stopping: FLUTICASONE PROPIONATE (FLUTICASONE INHALE) Comments: Reason for Stopping: Current Facility-Administered Medications: acetaminophen (TYLENOL) tablet 650 mg, 650 mg, Oral, Q6HPRN, Carmina Serra MD amLODIPine (NORVASC) tablet 10 mg, 10 mg, Oral, DAILY, Carmina Serra MD atenoloL (TENORMIN) tablet 100 mg, 100 mg, Oral, BID, Carmina Serra MD atorvastatin (LIPITOR) tablet 20 mg, 20 mg, Oral, QHS, Carmina Serra MD dextrose 50 % in water (D50W) injection 25 mL, 25 mL, Slow IV Push, PRN, Carmina Serra MD docusate (COLACE) capsule 200 mg, 200 mg, Oral, BID, Carmina Serra MD furosemide (LASIX) injection 40 mg, 40 mg, IV Push, Q12H, Carmina Serra MD, 40 mg at 08/12/200356 gabapentin (NEURONTIN) capsule 100 mg, 100 mg, Oral, TID, Carmina Serra MD glucagon (GLUCAGEN DIAGNOSTIC KIT) injection 1 mg, 1 mg, Intramuscular, PRN, Carmina Serra MD hydroCHLOROthiazide (ESIDRIX) tablet 12.5 mg, 12.5 mg, Oral, DAILY, Carmina Serra MD ipratropium-albuteroL (DUONEB) 0.5 mg-3 mg(2.5 mg base)/3 mL nebulizer solution 3 mL, 3 mL, Inhalation, QIDPRN, Carmina Serra MD labetaloL (NORMODYNE) injection 10 mg, 10 mg, Slow IV Push, Q6HPRN, Carmina Serra MD ondansetron (ZOFRAN (PF)) injection 4 mg, 4 mg, Slow IV Push, Q6HPRN, Carmina Serra MD rivaroxaban (XARELTO) tablet 15 mg, 15 mg, Oral, DAILY, Carmina Serra MD Sliding Scale Insulin-Regular + Fsbg Testing, , Subcutaneous, AC+HS, Carmina Serra MD traMADoL (ULTRAM) tablet 50 mg, 50 mg, Oral, Q8HPRN, Carmina Serra MD REVIEW OF SYSTEMS: Comprehensive 10-system review was conducted and were negative except for what's noted in the HPI. The following systems were reviewed: Constitutional, cardiovascular, respiratory, gastrointestinal, genitourinary, musculoskeletal, neurologic, psychiatric, endocrinological, and hematological. PHYSICAL EXAMINATION: Vitals: 08/12/20 0037 08/12/20 0358 08/12/20 0400 08/12/20 0745 BP: (!) 165/69 (!) 176/88 (!) 157/72 Pulse: 77 75 75 Resp: 18 18 Temp: 35.7 C (96.2 F) 35.9 C (96.6 F) 36.3 C (97.3 F) TempSrc: Temporal Artery Temporal Artery Temporal Artery SpO2: 93% 95% 96% Weight: 86.5 kg (190 lb 9.6 oz) Height: General: no apparent distress HEENT: normocephalic atraumatic Neck: supple, no lymphadenopathy, no bruits, no JVD Lungs: clear to auscultation bilaterally. No wheezes or rhonchi. No increased work of breathing. Cardio: Iregular rate and rhythm, S1&S2 normal, no murmurs, rubs or gallops Abdomen: soft; non-tender; non-distended; normoactive bowel sounds. : not examined Rectal: not examined Extremities: no clubbing, cyanosis, or edema. Skin: no rashes, no visible lesions. Neuro: no gross focal deficits LABS - Reviewed pertinent labs as below: CBC BMP PT/INR WBC (10*3/L) Date Value 08/11/2020 7.05 NA (mmol/L) Date Value 08/11/2020 121 (L) No results found for: PT PLT (10*3/L) Date Value 08/11/2020 101 (L) K (mmol/L) Date Value 08/11/2020 4.3 INR (no units) Date Value 09/05/2017 1.0 HGB (g/dL) Date Value 08/11/2020 6.2 (L) BUN (mg/dL) Date Value 08/11/2020 25 (H) HCT (%) Date Value 08/11/2020 17.8 (L) CREATININE (mg/dL) Date Value 08/11/2020 1.03 LIPID PROFILE GLUCOSE (mg/dL) Date Value 08/11/2020 138 (H) No results found for: CHOL TSH No results found for: LDL No results found for: TSH CARDIAC ENZYMES No results found for: HDL No results found for: CK No results found for: TRIG LFTs No results found for: CKMB AST(SGOT) (U/L) Date Value 08/11/2020 28 TROPONIN I (ng/mL) Date Value 08/11/2020 <0.012 ALT(SGPT) (U/L) Date Value 09/03/2017 33 ALTv (U/L) Date Value 08/11/2020 19 No results found for: BNP No results found for: LDL Recent Labs 08/11/20 1841 TROPNI <0.012 There are no current results on file for these tests and/or test for 1 year. No results found for: LDL NT-proBNP (pg/mL) Date Value 08/11/2020 4,300 (H) ASSESSMENT/PLAN Active Problems: Anemia Essential hypertension Atrial fibrillation with RVR Dyslipidemia Type 2 diabetes mellitus with other specified complication Acute on chronic diastolic CHF (congestive heart failure), NYHA class 3 Acute exacerbation of CHF: Likely diastolic HF. Excerberated in the setting of anemia. Continue IV lasix. Serial trop and Echo today Tele monitoring. Symptomatic anemia: Recommend to keep Hb > 8. T2DM: As per primary team. Atrial fibrillation: Continue Atenolol 100 mg daily. HTN: On Atenolol 100 mg daily, Norvasc 10 mg daily. Will monitor. Dyslipidemia: On lipitor 20 mg daily. Primary lean engineer: Dr Plata My diagnostic impression and treatment plans were discussed at length with the patient. Ample opportunity was offered and encouraged to ask questions during this visit and patient appreciated the answers given by me and verbzalised statisfcation in the answers given. Thank you for allowing us to participate in the care of Yuliya Kelley. If you have any questions or concerns please feel free to call our office at [phone]. I would be happy to be of further assistance for Yuliya Kelley wellbeing. Joselito Parra MD Silk Trimmer, Division of Cardiology [facility] ER APPRENTICE documented in this encounter ED Notes Cinthia Jarrett RN - 08/11/2020 5:46 PM CSTCC: Pt presents to ER via POV with complaints of SOB and swelling to BLE x 2 weeks. Pt oncologist told her to come to the ER to be checked for blood clots. PMHx: Ovarian CA stage 4, HTN, High cholesterol, NIDDM, A-fib PSH: Hysterectomy, Back Sx, Knee Sx, Shoulder sx, breast biopsy MEDS: See Hx LMP: Hysterectomy Tetanus: UTD Awake, alert, oriented, resp reg unlabored, skin warm, color appropriate for race, moves all ext without difficulty, amb with assist Appears in no distress Juancarols Espinoza DO - 08/11/2020 5:34 PM CST EMERGENCY DEPARTMENT ENCOUNTER [facility] Patient Name: Yuliya Kelley Date of : 1945 74 year old Exam Room:Room/bed info not found Primary Care Physician: Taryn Silva Pre- Hospital Patient Escorted by: Family [5] Mode of Arrival: Personal means [1] EMS Treatment Prior to ED Arrival: Chief Complaint Chief Complaint Patient presents with Shortness of Breath Edema HPI 74-year-old female with history of cancer presenting with leg swelling as well as shortness of breath. She was sent by her oncologist for evaluation of blood clots. She is on Xarelto for atrial fibrillation. Symptoms have been ongoing for the last 2 weeks. 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 Diabetes mellitus Hyperlipidemia Hypertension Pancreatitis Post-operative nausea and vomiting Spinal stenosis Ulcer of esophagus Tetanus received in last 5 years: Unknown Childhood immunizations: Up-to-date Past Surgical History Past Surgical History: Procedure Laterality Date BREAST BIOPSY CLAVICLE ORIF Left KNEE ARTHROSCOPY Bilateral SPINE SURGERY TOTAL KNEE ARTHROPLASTY Left 09/05/2017 Surgeon: Olayinka Garcia MD; Location: [facility] OR [facility] TUBAL LIGATION Allergies Allergies Allergen Reactions Demerol [Meperidine Hcl] Nausea and/or Vomiting Social History Tobacco Use Never smoked or used smokeless tobacco. Alcohol Use No. Drug Use No. Review of Systems Review of Systems Constitutional: Negative for chills, fatigue and fever. HENT: Negative for sore throat. Eyes: Negative for pain. Respiratory: Positive for shortness of breath. Negative for cough, chest tightness and stridor. Breasts: Negative for pain. Cardiovascular: Positive for leg swelling. Negative for chest pain and palpitations. Gastrointestinal: Negative for abdominal pain, constipation and diarrhea. Genitourinary: Negative for bladder incontinence, vaginal discharge and difficulty urinating. Musculoskeletal: Negative for back pain. Skin: Negative for color change and wound. Neurological: Negative for dizziness, seizures, weakness, light-headedness and headaches. Physical Exam BP (!) 115/99 | Pulse 78 | Temp 36.1 C (96.9 F) (Oral) | Resp 18 | Ht 1.702 m (5' 7") | Wt 85.7 kg (189 lb) | SpO2 100% | BMI 29.60 kg/m Physical Exam Vitals signs and nursing note reviewed. Constitutional: General: She is not in acute distress. Appearance: She is well-developed. She is not diaphoretic. HENT: Head: Normocephalic and atraumatic. Right Ear: External ear normal. Left Ear: External ear normal. Nose: Nose normal. Eyes: General: No scleral icterus. Conjunctiva/sclera: Conjunctivae normal. Pupils: Pupils are equal, round, and reactive to light. Neck: Musculoskeletal: Normal range of motion and neck supple. Cardiovascular: Rate and Rhythm: Normal rate and regular rhythm. Heart sounds: Normal heart sounds. Pulmonary: Effort: Pulmonary effort is normal. Breath sounds: Normal breath sounds. Abdominal: General: Bowel sounds are normal. Palpations: Abdomen is soft. Tenderness: There is no abdominal tenderness. Musculoskeletal: Normal range of motion. Skin: General: Skin is warm and dry. Neurological: Mental Status: She is alert and oriented to person, place, and time. Cranial Nerves: No cranial nerve deficit. Deep Tendon Reflexes: Reflexes are normal and symmetric. Psychiatric: Behavior: Behavior normal. Thought Content: Thought content normal. Labs No results found for this or any previous visit (from the past 24 hour(s)). Imaging No results found for this visit on 08/11/20. Orders and Treatments Orders Placed This Encounter Procedures CT THORAX W CONTRAST CBC WITH DIFF COMP. METABOLIC PANEL (80724) N-TERMINAL PRO-BNP TROPONIN I URINALYSIS Orders Placed This Encounter Medications ferrous sulfate 325 mg (65 mg iron) tablet gabapentin 100 mg capsule nitrofurantoin 100 mg capsule proCHLORperazine 10 mg tablet traMADoL 100 mg capsule Procedures See ED Procedure Note Notes & MDM Patient was evaluated for an emergency medical condition related to Shortness of Breath and Edema . Differential diagnoses considered by presenting complaints but not limited to: Pulmonary Embolism, chest pain, shortness of breath. Assessment: Yuliya Kelley is a 74 year old female with shortness of breath and leg swelling. Signed out to Dr. Lorenzo at shift change. Imaging pending. Diagnosis ICD-10-CM ICD-9-CM 1. Shortness of breath R06.02 786.05 Disposition & Follow Up ED Disposition None Patient's Medications START taking these medications No medications on file CONTINUE taking these medications which have NOT CHANGED ALBUTEROL (VENTOLIN HFA) 90 MCG/ACTUATION INHALER Inhale 2 Puffs every 6 (six) hours as needed for Shortness of Breath or Chest tightness for up to 30 days. AMLODIPINE (NORVASC) 2.5 MG TABLET Take 10 mg by mouth daily. AMLODIPINE 10 MG TABLET Take 10 mg by mouth daily. ATENOLOL (TENORMIN) 100 MG TABLET Take 100 mg by mouth 2 (two) times daily. ATORVASTATIN (LIPITOR) 20 MG TABLET Take 20 mg by mouth at bedtime. BENZOCAINE-MENTHOL (CEPACOL SORE THROAT, THEODORA-MEN,) LOZENGE Take 1 Lozenge by mouth every 2 (two) hours as needed for 48 Hours for Sore throat. BIOTIN 10 MG TAB Take 1 tablet by mouth daily. CETIRIZINE (ZYRTEC) 10 MG TABLET Take 10 mg by mouth as needed for Allergies. DIPHENHYDRAMINE (BENADRYL ALLERGY) 25 MG TABLET Take 25 mg by mouth every 6 (six) hours as needed for Itching or Allergies. DOCUSATE (STOOL SOFTENER) 100 MG CAPSULE Take 200 mg by mouth 2 (two) times daily. FERROUS SULFATE 325 MG (65 MG IRON) TABLET Take 325 mg by mouth 3 (three) times daily with meals. FLUTICASONE PROPIONATE (FLUTICASONE INHALE) Inhale. FUROSEMIDE 20 MG TABLET Take 20 mg by mouth as needed. GABAPENTIN 100 MG CAPSULE Take 100 mg by mouth 3 (three) times daily. GUAIFENESIN (MUCINEX) 600 MG TABLET Take 1 tablet by mouth every 12 (twelve) hours. HYDROCHLOROTHIAZIDE (ESIDRIX) 12.5 MG CAPSULE Take 12.5 mg by mouth daily. LISINOPRIL (PRINIVIL,ZESTRIL) 5 MG TABLET Take 5 mg by mouth daily. METFORMIN (GLUCOPHAGE) 1,000 MG TABLET Take 500 mg by mouth 2 (two) times daily with meals. METFORMIN 500 MG TABLET Take 500 mg by mouth 2 (two) times daily with meals. NITROFURANTOIN 100 MG CAPSULE Take 100 mg by mouth 4 (four) times daily. OMEPRAZOLE ORAL Take 40 mg by mouth. ONDANSETRON 4 MG TABLET Take 1 tablet by mouth every 8 (eight) hours as needed for Nausea and Vomiting (N/V). PHENAZOPYRIDINE (PYRIDIUM) 200 MG TABLET Take 1 tablet by mouth 3 (three) times daily. PROCHLORPERAZINE 10 MG TABLET Take 10 mg by mouth every 6 (six) hours as needed. RIVAROXABAN 15 MG TABLET Take 15 mg by mouth daily. TRAMADOL 100 MG CAPSULE Take 50 mg by mouth. START taking Modified Medications as Prescribed No medications on file STOP taking these medications No medications on file Juancarlos Dexter DO 08/11/2020 5:52 PM ACTIVE COVID-19 PANDEMIC. documented in this encounter Miscellaneous Notes Care Plan - Tia Joyner RN - 08/14/2020 11:43 AM ROOFER APPRENTICE Problem: Pain Goal: Control of pain at or below patient's documented comfort goal Outcome: Progressing as expected Goal: Reduction in pain sensation Outcome: Progressing as expected Problem: Nutrition Deficit Goal: Adequate nutritional intake Outcome: Progressing as expected Problem: Falls, Risk of Goal: Absence of falls Outcome: Progressing as expected Problem: Discharge Planning Goal: Adequate for discharge Outcome: Progressing as expected Goal: Effective communication Outcome: Progressing as expected Problem: Activity Intolerance Goal: Improved activity tolerance Outcome: Progressing as expected Problem: Respiratory Function - Impaired Goal: Adequate work of breathing Outcome: Progressing as expected are Plan - Tia Joyner RN - 08/14/2020 10:45 AM ROOFER APPRENTICE Problem: Pain Goal: Control of pain at or below patient's documented comfort goal 08/14/2020 1449 by Tia Joyner RN Outcome: Progressing as expected 08/14/2020 1143 by Tia Joyner RN Outcome: Progressing as expected Goal: Reduction in pain sensation 08/14/2020 1449 by Tia Joyner RN Outcome: Progressing as expected 08/14/2020 1143 by Tia Joyner RN Outcome: Progressing as expected Problem: Nutrition Deficit Goal: Adequate nutritional intake 08/14/2020 1449 by Tia Joyner RN Outcome: Progressing as expected 08/14/2020 1143 by Tia Joyner RN Outcome: Progressing as expected Problem: Falls, Risk of Goal: Absence of falls 08/14/2020 1449 by Tia Joyner RN Outcome: Progressing as expected 08/14/2020 1143 by Tia Joyner RN Outcome: Progressing as expected Problem: Discharge Planning Goal: Adequate for discharge 08/14/2020 1449 by Tia Joyner RN Outcome: Progressing as expected 08/14/2020 1143 by Tia Joyner RN Outcome: Progressing as expected Goal: Effective communication 08/14/2020 1449 by Tia Joyner RN Outcome: Progressing as expected 08/14/2020 1143 by Tia Joyner RN Outcome: Progressing as expected Problem: Activity Intolerance Goal: Improved activity tolerance 08/14/2020 1449 by Tia Joyner RN Outcome: Progressing as expected 08/14/2020 1143 by Tia Joyner RN Outcome: Progressing as expected Problem: Respiratory Function - Impaired Goal: Adequate work of breathing 08/14/2020 1449 by Tia Joyner RN Outcome: Progressing as expected 08/14/2020 1143 by Tia Joyner RN Outcome: Progressing as expected are Plan - Sebastian Peacock RN - 08/14/2020 2:08 AM ROOFER APPRENTICE Problem: Pain Goal: Control of pain at or below patient's documented comfort goal Outcome: Progressing as expected Goal: Reduction in pain sensation Outcome: Progressing as expected Problem: Nutrition Deficit Goal: Adequate nutritional intake Outcome: Progressing as expected Problem: Falls, Risk of Goal: Absence of falls Outcome: Progressing as expected Problem: Discharge Planning Goal: Adequate for discharge Outcome: Progressing as expected Goal: Effective communication Outcome: Progressing as expected Problem: Activity Intolerance Goal: Improved activity tolerance Outcome: Progressing as expected Problem: Respiratory Function - Impaired Goal: Adequate work of breathing Outcome: Progressing as expected are Plan - Eunice Gabriel RN - 08/13/2020 7:23 PM ROOFER APPRENTICE Problem: Pain Goal: Control of pain at or below patient's documented comfort goal Outcome: Progressing as expected Goal: Reduction in pain sensation Outcome: Progressing as expected Problem: Pain Goal: Control of pain at or below patient's documented comfort goal Outcome: Progressing as expected Problem: Pain Goal: Reduction in pain sensation Outcome: Progressing as expected are Eric - Sebastian Peacock RN - 08/13/2020 2:19 AM ROOFER APPRENTICE Problem: Pain Goal: Control of pain at or below patient's documented comfort goal Outcome: Progressing as expected Goal: Reduction in pain sensation Outcome: Progressing as expected Problem: Nutrition Deficit Goal: Adequate nutritional intake Outcome: Progressing as expected Problem: Falls, Risk of Goal: Absence of falls Outcome: Progressing as expected Problem: Discharge Planning Goal: Adequate for discharge Outcome: Progressing as expected Goal: Effective communication Outcome: Progressing as expected Problem: Activity Intolerance Goal: Improved activity tolerance Outcome: Progressing as expected Problem: Respiratory Function - Impaired Goal: Adequate work of breathing Outcome: Progressing as expected are Plan - Eunice Gabriel RN - 08/12/2020 7:13 PM ROOFER APPRENTICE Problem: Pain Goal: Reduction in pain sensation Outcome: Progressing as expected Problem: Nutrition Deficit Goal: Adequate nutritional intake Outcome: Progressing as expected Problem: Falls, Risk of Goal: Absence of falls Outcome: Progressing as expected Problem: Discharge Planning Goal: Adequate for discharge Outcome: Progressing as expected Goal: Effective communication Outcome: Progressing as expected Problem: Activity Intolerance Goal: Improved activity tolerance Outcome: Progressing as expected Problem: Respiratory Function - Impaired Goal: Adequate work of breathing Outcome: Progressing as expected Problem: Pain Goal: Reduction in pain sensation Outcome: Progressing as expected Problem: Nutrition Deficit Goal: Adequate nutritional intake Outcome: Progressing as expected Problem: Falls, Risk of Goal: Absence of falls Outcome: Progressing as expected Problem: Discharge Planning Goal: Effective communication Outcome: Progressing as expected Problem: Falls, Risk of Goal: Absence of falls Outcome: Progressing as expected are Plan - Rosa Quinteros RN - 08/12/2020 8:51 AM ROOFER APPRENTICE Problem: Pain Goal: Control of pain at or below patient's documented comfort goal Outcome: Progressing as expected Goal: Reduction in pain sensation Outcome: Progressing as expected Problem: Nutrition Deficit Goal: Adequate nutritional intake Outcome: Progressing as expected Problem: Falls, Risk of Goal: Absence of falls Outcome: Progressing as expected Problem: Discharge Planning Goal: Adequate for discharge Outcome: Progressing as expected Goal: Effective communication Outcome: Progressing as expected Problem: Activity Intolerance Goal: Improved activity tolerance Outcome: Progressing as expected D Nurse Angelo - Jaquelin Esparza RN - 08/11/2020 9:53 PM CSTPatient [facility] Patient agrees to admission, discussed plan of care with patient and family. Patient is awake, alert, oriented, resp reg unlabored, color appropriate for race, PIV intact No adverse reaction to medications administered while in ED Belongings with patient to unit Report to MAG Perez D Nurse Note - Chasity Curry RN - 08/11/2020 9:14 PM CSTReport given to MAG Hammer documented in this encounter Plan of Treatment Name Type Priority Associated Diagnoses Date/Ti me LAB ONLY COVID LAB STAT Shortness of breath 2019 7:51 PM INTERPRETATION ROOFER APPRENTICE Name Type Priority Associated Diagnoses Order S chedule LAB ONLY COVID LAB Routine Shortness of breath ONCE f or 1 Occurrences INTERPRETATION starting 08/01 until 0 OCCULT (GUAIAC) BLOOD LAB Routine ONCE f or 1 Occurrences starting 2019 until 0 CBC with Differential LAB Routine EVERY MORNING AT 0400 for 5 Occurrenc es starting 2019 until 0, 2 completed Basic Metabolic Panel (NA, LAB Routine E VERY MORNING AT 0400 K, CL, CO2, GLUCOSE, BUN, fo r 5 Occurrences CREATININE, CA) starting until 0, 2 completed Transfusion Reaction LAB Routine FOR FOL LOW-UP TESTING Investigation until disconti nued starting 2019 Urinalysis (Spun) LAB Routine FOR FOLLOW -UP TESTING until discontin ued starting 2019 Health Maintenance Due Date Last Done Comments [...] 01/24/2018 01/24/2017, 01/10/2016, (MAMMOGRAM) 04/20/2015 CREATININE (SERUM) 08/13/2021 08/13/2020, 08/12/2020, 08/11/2020, Additional history exists Osteoporosis Screening 03/15/2026 03/15/2016 PNEUMOCOCCAL VACCINES 65+ Completed 10/19/2017, 09/06/2015 INFLUENZA VACCINE Completed 07/01/2020, 06/16/2020, 07/04/2019, Additional history exists documented as of this encounter Implants Implanted Type Area Field Appraiser Device Shelf Model / Identifier Expiration Serial / Lot Date Palacos R+G Bone Cement With Gentamicin CEMENT Left: Anayeli 02/28/2021 [id number] / Implanted: Qty: 2 on 09/05/2017 by Oalyinka Rock MD at [facility] Knee [id number] / [id number] Ps Open Box Femoral - Left KNEE Left: Biomet [id number] / Implanted: Qty: 1 on 09/05/2017 by Olayinka Rock MD at [facility] Knee 1 [id number] / [id number] Ps Tibial Bearing KNEE Left: Biomet 05/30/2022 [id number] / Implanted: Qty: 1 on 09/05/2017 by Olayinka Rock MD at [facility] Knee 1 [id number] / [id number] Series-A Standard Patella PATELLA Left: Biomet 07/01 [id number] / Implanted: Qty: 1 on 09/05/2017 by Olayinka Rock MD at [facility] Knee 1 [id number] / [id number] Fixed Cruciate Tibial Plate PLATE Left: Biomet [id number] / Implanted: Qty: 1 on 09/05/2017 by Olayinka Rock MD at [facility] Knee 1 [id number] / [id number] documented as of this encounter Procedures Procedure Name Priority Date/Time Associated Diagnosis Comme nts POCT GLUCOSE Routine 08/14/2020 11:58 Results for this (AUTOMATED) AM ROOFER APPRENTICE procedure are i n the results section. POCT GLUCOSE Routine 08/14/2020 7:39 Results for this (AUTOMATED) AM ROOFER APPRENTICE procedure are i n the results section. CBC WITH DIFF Routine 08/14/2020 3:45 Results fo r this AM ROOFER APPRENTICE procedure are i n the results section. BASIC METABOLIC PANEL Routine 08/14/2020 3:45 Re sults for this (NA, K, CL, CO2, AM ROOFER APPRENTICE procedure a re in GLUCOSE, BUN, the results CREATININE, CA) section. MAGNESIUM Routine 08/14/2020 3:45 Results for this AM ROOFER APPRENTICE procedure are i n the results section. POCT GLUCOSE Routine 08/13/2020 8:11 Results for this (AUTOMATED) PM ROOFER APPRENTICE procedure are i n the results section. POCT GLUCOSE Routine 08/13/2020 5:04 Results for this (AUTOMATED) PM ROOFER APPRENTICE procedure are i n the results section. POCT GLUCOSE Routine 08/13/2020 11:47 Results for this (AUTOMATED) AM ROOFER APPRENTICE procedure are i n the results section. POCT GLUCOSE Routine 08/13/2020 7:37 Results for this (AUTOMATED) AM ROOFER APPRENTICE procedure are i n the results section. CORTISOL AM Routine 08/13/2020 5:37 Results for this AM ROOFER APPRENTICE procedure are i n the results section. MAGNESIUM Add-on 08/13/2020 5:37 Results for this AM ROOFER APPRENTICE procedure are i n the results section. PHOSPHORUS Add-on 08/13/2020 5:37 Results for this AM ROOFER APPRENTICE procedure are i n the results section. URINALYSIS Routine 08/13/2020 5:36 Results for this AM ROOFER APPRENTICE procedure are i n the results section. OSMOLALITY URINE Routine 08/13/2020 5:36 Results for this AM ROOFER APPRENTICE procedure are i n the results section. PROTEIN CREAT RATIO Routine 08/13/2020 5:35 Resu lts for this URINE RANDOM AM ROOFER APPRENTICE procedure are i n the results section. SODIUM, URINE RANDOM Routine 08/13/2020 5:35 Res ults for this AM ROOFER APPRENTICE procedure are i n the results section. UREA NITROGEN, URINE Routine 08/13/2020 5:35 Res ults for this RANDOM AM ROOFER APPRENTICE procedure are i n the results section. CREATININE, URINE Routine 08/13/2020 5:35 Result s for this RANDOM AM ROOFER APPRENTICE procedure are i n the results section. CBC WITH DIFF Routine 08/13/2020 5:35 Results fo r this AM ROOFER APPRENTICE procedure are i n the results section. BASIC METABOLIC PANEL Routine 08/13/2020 5:35 Re sults for this (NA, K, CL, CO2, AM ROOFER APPRENTICE procedure a re in GLUCOSE, BUN, the results CREATININE, CA) section. OSMOLALITY SERUM Routine 08/13/2020 5:35 Results for this AM ROOFER APPRENTICE procedure are i n the results section. URIC ACID Routine 08/13/2020 5:35 Results for this AM ROOFER APPRENTICE procedure are i n the results section. THYROID STIMULATING Routine 08/13/2020 5:34 Resu lts for this HORMONE AM ROOFER APPRENTICE procedure are i n the results section. POCT GLUCOSE Routine 08/12/2020 8:38 Results for this (AUTOMATED) PM ROOFER APPRENTICE procedure are i n the results section. CBC WITH DIFF STAT 08/12/2020 6:27 Results fo r this PM ROOFER APPRENTICE procedure are i n the results section. BASIC METABOLIC PANEL STAT 08/12/2020 6:27 Re sults for this (NA, K, CL, CO2, PM ROOFER APPRENTICE procedure a re in GLUCOSE, BUN, the results CREATININE, CA) section. POCT GLUCOSE Routine 08/12/2020 4:31 Results for this (AUTOMATED) PM ROOFER APPRENTICE procedure are i n the results section. XR CHEST 1 VW Routine 08/12/2020 1:16 Shortness of breath Res ults for this PM ROOFER APPRENTICE procedure are i n the results section. POCT GLUCOSE Routine 08/12/2020 11:56 Results for this (AUTOMATED) AM ROOFER APPRENTICE procedure are i n the results section. PREPARE PACKED RBC Routine 08/12/2020 11:55 Resul ts for this AM ROOFER APPRENTICE procedure are i n the results section. ECHO ROUTINE W/DOPPLER Routine 08/12/2020 11:18 Hypervolemia, COLOR AM ROOFER APPRENTICE unspecified hypervolemia type BILATERAL VENOUS Routine 08/12/2020 10:46 DUPLEX LOWER EXTREMITY AM ROOFER APPRENTICE BY VASCULAR LAB POCT GLUCOSE Routine 08/12/2020 7:47 Results for this (AUTOMATED) AM ROOFER APPRENTICE procedure are i n the results section. IRON PANEL Routine 08/12/2020 2:46 Results for this AM ROOFER APPRENTICE procedure are i n the results section. TOTAL IRON BINDING Routine 08/12/2020 2:46 Resul ts for this CAPACITY AM ROOFER APPRENTICE procedure are i n the results section. FERRITIN SERUM Routine 08/12/2020 2:46 Results f or this AM ROOFER APPRENTICE procedure are i n the results section. FOLATE Add-on 08/12/2020 2:45 Results for this AM ROOFER APPRENTICE procedure are i n the results section. VITAMIN B12, LEVEL Add-on 08/12/2020 2:45 Resul ts for this AM ROOFER APPRENTICE procedure are i n the results section. TRANSFERRIN Routine 08/12/2020 2:45 Results for this AM ROOFER APPRENTICE procedure are i n the results section. COVID-19 (ID NOW RAPID STAT 08/11/2020 7:51 Shortness of b reath Results for this TESTING) PM ROOFER APPRENTICE procedure are i n the results section. HB ABO GROUPING Routine 08/11/2020 7:50 Shortness of breath R esults for this PM ROOFER APPRENTICE procedure are i n the results section. CT CHEST PULMONARY Routine 08/11/2020 7:43 Shortness of breat h Results for this ANGIOGRAM PM ROOFER APPRENTICE procedure are i n the results section. URINALYSIS STAT 08/11/2020 7:17 Shortness of breath Resu lts for this PM ROOFER APPRENTICE procedure are i n the results section. HB ECG ROUTINE & Routine 08/11/2020 6:46 Shortness of breath RHYTHM STRIP PM ROOFER APPRENTICE DIFF CONSULT Routine 08/11/2020 6:41 Results for this INTERPRETATION PM ROOFER APPRENTICE procedure are in the results section. N-TERMINAL PRO-BNP STAT 08/11/2020 6:41 Shortness of breat h Results for this PM ROOFER APPRENTICE procedure are i n the results section. RETICULOCYTES Add-on 08/11/2020 6:41 Results fo r this AUTOMATED PM ROOFER APPRENTICE procedure are i n the results section. CBC WITH DIFF STAT 08/11/2020 6:41 Shortness of breath Res ults for this PM ROOFER APPRENTICE procedure are i n the results section. DIFF CONSULT Add-on 08/11/2020 6:41 Results for this INTERPRETATION PM ROOFER APPRENTICE procedure are in the results section. COMP. METABOLIC PANEL STAT 08/11/2020 6:41 Shortness of br eath Results for this (01082) PM ROOFER APPRENTICE procedure are i n the results section. TROPONIN I STAT 08/11/2020 6:41 Shortness of breath Resu lts for this PM ROOFER APPRENTICE procedure are i n the results section. documented in this encounter Results POCT GLUCOSE (AUTOMATED) (08/14/2020 11:58 AM ROOFER APPRENTICE) Pathologist Sig nature POCT GLU 160 (H) 70 - 110 mg/dL [facility] Specimen Blood Performing Organization Address City/State/[place] Phone Number [facility] CLIA: [id number] [place] [address] [address] POCT GLUCOSE (AUTOMATED) (08/14/2020 7:39 AM ROOFER APPRENTICE) Pathologist Sig nature POCT GLU 128 (H) 70 - 110 mg/dL [facility] Specimen Blood Performing Organization Address [facility] [place] Phone Number [facility] CLIA: [id number] [place] [address] MAGNESIUM (08/14/2020 3:45 AM ROOFER APPRENTICE) Pathologist Sig nature MAGNESIUM 1.9 1.7 - 2.4 mg/dL [facility] Specimen Blood - ARM, LEFT Performing Organization Address [facility] [place] Phone Number [facility] CLIA: [id number] [place] [address] [address] Basic Metabolic Panel (NA, K, CL, CO2, GLUCOSE, BUN, CREATININE, CA) (08/14/2020 3:45 AM ROOFER APPRENTICE) Pathologist Sig nature NA 124 (L) 135 - 145 [facility] mmol/L [facility] K 3.9 3.5 - 5.0 [facility] mmol/L [facility] CL 87 (L) 98 - 108 mmol/L [facility] CO2 TOTAL 33 (H) 23 - 31 mmol/L [facility] AGAP 4 2 - 16 [facility] BUN 22 7 - 23 mg/dL [facility] GLUCOSE 130 (H) 70 - 110 mg/dL [facility] CREATININE 1.04 0.50 - 1.04 [facility] mg/dL [facility] CALCIUM 8.2 (L) 8.6 - 10.6 [facility] mg/dL [facility] eGFR Calculation 52.1 mL/min/1.73m2 [facility] (Non-[facility] LABORATORY Martiniquais) eGFR Calculation 63.1 mL/min/1.73m2 [facility] () [facility] Specimen Blood - ARM, LEFT Narrative Performed At Association of Glomerular Filtration Rate (GFR) [facility] and Staging of Kidney Disease* + + +- + | GFR (mL/min/1.73 m2) | With Kidney Damage | Without Kidney Damage + + +- + | >90 | Stage one | Normal + + +- + | 60-89 | Stage two | Decreased GFR + + +- + | 30-59 | Stage three | Stage three + + +- + | 15-29 | Stage four | Stage four + + +- + | <15 (or dialysis) | Stage five | Stage five + + +- + *Each stage assumes the associated GFR level has been in effect for at least three months. Stages 1 to 5, with or without kidney disease, indicate chronic kidney disease. Notes: Determination of stages one and two (with eGFR >59mL/min/1.73 m2) requires estimation of kidney damage for at least three months as defined by structural or functional abnormalities of the kidney, manifested by either: Pathological abnormalities or Markers of kidney damage (including abnormalities in the composition of the blood or urine or abnormalities in imaging tests). Performing Organization Address City/State/Zipcode Phone Number [facility] CLIA: [id number] [place], [place] [id number] LABORATORY [address] CBC with Differential (08/14/2020 3:45 AM ROOFER APPRENTICE) Pathologist [facility] nature WBC 3.91 (L) 4.30 - 11.10 [facility] 10*3/L [facility] RBC 2.17 (L) 3.93 - 5.25 [facility] 10*6/L [facility] HGB 7.5 (L) 11.6 - 15.0 [facility] g/dL [facility] HCT 20.9 (L) 35.7 - 45.2 % [facility] MCV 96.3 (H) 80.6 - 95.5 fL [facility] MCH 34.6 (H) 25.9 - 32.8 pg [facility] MCHC 35.9 (H) 31.6 - 35.1 [facility] g/dL [facility] RDW-SD 73.3 (H) 39.0 - 49.9 fL [facility] RDW-CV 21.4 (H) 12.0 - 15.5 % [facility] PLT 100 (L) 166 - 358 [facility] 10*3/L [facility] MPV 9.9 9.5 - 12.9 fL [facility] NRBC/100 WBC 0.0 0.0 - 10.0 /100 [facility] WBCs [facility] NRBC x10^3 <0.01 10*3/L [facility] GRAN MAT (NEUT) % 79.6 % [facility] IMM GRAN % 0.50 % [facility] LYMPH % 6.9 % [facility] MONO % 12.0 % [facility] EOS % 0.5 % [facility] BASO % 0.5 % [facility] GRAN MAT x10^3(ANC) 3.11 1.88 - 7.09 [facility] 10*3/uL [facility] IMM GRAN x10^3 <0.03 0.00 - 0.06 [facility] 10*3/uL HOSPITAL LABORATORY LYMPH x10^3 0.27 (L) 1.32 - 3.29 [facility] 10*3/uL HOSPITAL LABORATORY MONO x10^3 0.47 0.33 - 0.92 [facility] 10*3/uL HOSPITAL LABORATORY EOS x10^3 <0.03 (L) 0.03 - 0.39 [facility] 10*3/uL HOSPITAL LABORATORY BASO x10^3 <0.03 0.01 - 0.07 [facility] 10*3/uL HOSPITAL LABORATORY Specimen Blood - ARM, LEFT Performing Organization Address [facility] Phone Number [facility] CLIA: [id number] [place], [place] [address] LABORATORY [address] POCT GLUCOSE (AUTOMATED) (08/13/2020 8:11 PM ROOFER APPRENTICE) Pathologist Sig nature POCT GLU 194 (H) 70 - 110 mg/dL [facility] Specimen Blood Performing Organization Address [facility] Phone Number [facility] CLIA: [id number] [place], [place] [address] LABORATORY [address] POCT GLUCOSE (AUTOMATED) (08/13/2020 5:04 PM ROOFER APPRENTICE) Pathologist Sig nature POCT GLU 154 (H) 70 - 110 mg/dL [facility] Specimen Blood Performing Organization Address City/[facility] Phone Number [facility] CLIA: [id number] [place] [address] POCT GLUCOSE (AUTOMATED) (08/13/2020 11:47 AM ROOFER APPRENTICE) Pathologist Sig nature POCT GLU 131 (H) 70 - 110 mg/dL [facility] Specimen Blood Performing Organization Address City/[facility] Phone Number [facility] CLIA: [id number] [place] [address] POCT GLUCOSE (AUTOMATED) (08/13/2020 7:37 AM ROOFER APPRENTICE) Pathologist Sig nature POCT GLU 119 (H) 70 - 110 mg/dL [facility] Specimen Blood Performing Organization Address [facility] Phone Number [facility] CLIA: [id number] [place] [address] PHOSPHORUS (08/13/2020 5:37 AM ROOFER APPRENTICE) Pathologist Sig nature PHOSPHORUS 4.9 2.5 - 5.0 mg/dL [facility] Specimen Blood - ARM, RIGHT Performing Organization Address City/[facility] Phone Number [facility] CLIA: [id number] [place] [address] [address] [facility] MAGNESIUM (08/13/2020 5:37 AM ROOFER APPRENTICE) Pathologist Sig nature MAGNESIUM 1.0 (L) 1.7 - 2.4 mg/dL [facility] Specimen Blood - ARM, RIGHT Performing Organization Address City/[facility] Phone Number [facility] CLIA: [id number] [place] [address] [address] [facility] CORTISOL AM (08/13/2020 5:37 AM ROOFER APPRENTICE) Pathologist Sig nature DIYA AM 9.9 4.5 - 23.0 ug/dL [facility] Specimen Blood - ARM, RIGHT Narrative Performed At Biotin has been reported to cause a positive bias, int erpret [facility] results relative to patient's use of biotin. Performing Organization Address City/[facility] Phone Number [facility] CLIA: [id number] [place] [address] [place] [address] URINALYSIS (08/13/2020 5:36 AM ROOFER APPRENTICE) Pathologist Sig nature APPEARANCE Clear Clear [facility] COLOR Straw (A) Yellow [facility] PH 6.0 4.8 - 8.0 [facility] SP GRAVITY 1.008 1.003 - 1.030 [facility] GLU U QUAL Normal Normal [facility] BLOOD Negative Negative [facility] KETONES Negative Negative [facility] PROTEIN 30 mg/dL (A) Negative [facility] UROBILIN Normal Normal [facility] BILIRUBIN Negative Negative [facility] NITRITE Negative Negative [facility] LEUK TIERRA Negative Negative [facility] RBC/HPF 1 0 - 3 HPF [facility] WBC/HPF 1 0 - 5 HPF [facility] BACTERIA Few (A) Negative [facility] SQ EPITH <1 HPF [facility] HYAL CAST 1 <=2 LPF [facility] Specimen Urine - URINE, CLEAN CATCH Performing Organization Address [facility] Phone Number [facility] CLIA: [id number] [place] [address] OSMOLALITY URINE (08/13/2020 5:36 AM ROOFER APPRENTICE) Pathologist Sig nature OSMO U 285 50-1,100 mOsm/kg [facility] Specimen Urine - URINE, CLEAN CATCH Performing Organization Address City/[facility] Phone Number [facility] CLIA: [id number] [place] [address] [place] [address] URIC ACID (08/13/2020 5:35 AM ROOFER APPRENTICE) Pathologist Sig nature URIC ACID 7.6 (H) 2.9 - 6.0 mg/dL [facility] Specimen Blood - ARM, RIGHT Performing Organization Address [facility] Phone Number [facility] CLIA: [id number] [place] [address] UREA NITROGEN, URINE RANDOM (08/13/2020 5:35 AM ROOFER APPRENTICE) Pathologist Sig nature UREA N UR 97 mg/dL [facility] Specimen Urine - URINE, CLEAN CATCH Performing Organization Address [facility] [place] Phone Number [facility] CLIA: [id number] [place] [address] [place] [address] SODIUM, URINE RANDOM (08/13/2020 5:35 AM ROOFER APPRENTICE) Pathologist Sig nature NA URINE 103 mmol/L [facility] Specimen Urine - URINE, CLEAN CATCH Performing Organization Address [facility] Phone Number [facility] CLIA: [id number] [place], [place] [address] LABORATORY [address] [facility] CREATININE, URINE RANDOM (08/13/2020 5:35 AM ROOFER APPRENTICE) Pathologist Sig nature CREAT U 20.2 mg/dL [facility] Specimen Urine - URINE, CLEAN CATCH Performing Organization Address [facility] [place] Phone Number [facility] CLIA: [id number] [place] [address] LABORATORY [address] [facility] OSMOLALITY SERUM (08/13/2020 5:35 AM ROOFER APPRENTICE) Pathologist Sig nature OSMOLALITY 263 (L) 278 - 305 mOsm/kg [facility] S Specimen Blood - ARM, RIGHT Performing Organization Address [facility] [place] Phone Number [facility] CLIA: [id number] [place] [address] [place] [address] PROTEIN CREAT RATIO URINE RANDOM (08/13/2020 5:35 AM ROOFER APPRENTICE) Pathologist Sig nature T. PROT U 53 mg/dL [facility] CREAT U 20.2 mg/dL [facility] Protein/Creatinine 2.6 (H) 0.0 - 2.0 [facility] LABORATORY Specimen Urine - URINE, CLEAN CATCH Narrative Performed At Random Urine Total Protein Reference Ran ges [facility] Random Specimen: Less than 10 mg/dL First Morning Specimen: Less than 20 mg/dL Performing Organization Address [facility] [place] Phone Number [facility] CLIA: [id number] [place] [address] Basic Metabolic Panel (NA, K, CL, CO2, GLUCOSE, BUN, CREATININE, CA) (08/13/2020 5:35 AM ROOFER APPRENTICE) [facility] nature NA 125 (L) 135 - 145 [facility] mmol/L [facility] K 3.1 (L) 3.5 - 5.0 [facility] mmol/L [facility] CL 88 (L) 98 - 108 mmol/L [facility] CO2 TOTAL 32 (H) 23 - 31 mmol/L [facility] AGAP 5 2 - 16 [facility] BUN 20 7 - 23 mg/dL [facility] GLUCOSE 103 70 - 110 mg/dL [facility] CREATININE 0.94 0.50 - 1.04 [facility] mg/dL [facility] CALCIUM 8.6 8.6 - 10.6 [facility] mg/dL [facility] eGFR Calculation 58.5 mL/min/1.73m2 [facility] (Non-[facility] LABORATORY Martiniquais) eGFR Calculation 70.9 mL/min/1.73m2 [facility] () [facility] Specimen Blood - ARM, RIGHT Narrative Performed At Association of Glomerular Filtration Rate (GFR) [facility] and Staging of Kidney Disease* + + +- + | GFR (mL/min/1.73 m2) | With Kidney Damage | Without Kidney Damage + + +- + | >90 | Stage one | Normal + + +- + | 60-89 | Stage two | Decreased GFR + + +- + | 30-59 | Stage three | Stage three + + +- + | 15-29 | Stage four | Stage four + + +- + | <15 (or dialysis) | Stage five | Stage five + + +- + *Each stage assumes the associated GFR level has been in effect for at least three months. Stages 1 to 5, with or without kidney disease, indicate chronic kidney disease. Notes: Determination of stages one and two (with eGFR >59mL/min/1.73 m2) requires estimation of kidney damage for at least three months as defined by structural or functional abnormalities of the kidney, manifested by either: Pathological abnormalities or Markers of kidney damage (including abnormalities in the composition of the blood or urine or abnormalities in imaging tests). Performing Organization Address City/State/Zipcode Phone Number [facility] CLIA: [id number] [place], [place] [id number] LABORATORY [address] CBC with Differential (08/13/2020 5:35 AM ROOFER APPRENTICE) Pathologist Sig nature WBC 3.73 (L) 4.30 - 11.10 [facility] 10*3/L HOSPITAL LABORATORY RBC 2.27 (L) 3.93 - 5.25 [facility] 10*6/L HOSPITAL LABORATORY HGB 7.5 (L) 11.6 - 15.0 [facility] g/dL HOSPITAL LAB[facility]ATORY HCT 21.4 (L) 35.7 - 45.2 % [facility] MCV 94.3 80.6 - 95.5 fL [facility] MCH 33.0 (H) 25.9 - 32.8 pg [facility] MCHC 35.0 31.6 - 35.1 [facility] g/dL [facility] RDW-SD 69.3 (H) 39.0 - 49.9 fL [facility] RDW-CV 21.0 (H) 12.0 - 15.5 % [facility] PLT 102 (L) 166 - 358 [facility] 10*3/L [facility] MPV 10.0 9.5 - 12.9 fL [facility] NRBC/100 WBC 0.0 0.0 - 10.0 /100 [facility] WBCs [facility] NRBC x10^3 <0.01 10*3/L [facility] GRAN MAT (NEUT) % 81.2 % [facility] IMM GRAN % 0.80 % [facility] LYMPH % 6.2 % [facility] MONO % 10.5 % [facility] EOS % 0.8 % [facility] BASO % 0.5 % [facility] GRAN MAT x10^3(ANC) 3.03 1.88 - 7.09 [facility] 10*3/uL HOSPITAL LABORATORY IMM GRAN x10^3 0.03 0.00 - 0.06 [facility] 10*3/uL HOSPITAL LABORATORY LYMPH x10^3 0.23 (L) 1.32 - 3.29 [facility] 10*3/uL HOSPITAL LABORATORY MONO x10^3 0.39 0.33 - 0.92 [facility] 10*3/uL HOSPITAL LABORATORY EOS x10^3 0.03 0.03 - 0.39 [facility] 10*3/uL [facility] BASO x10^3 <0.03 0.01 - 0.07 [facility] 10*3/uL [facility] Specimen Blood - ARM, RIGHT Performing Organization Address [facility] Phone Number [facility] CLIA: [id number] [place] [address] THYROID STIMULATING HORMONE (08/13/2020 5:34 AM ROOFER APPRENTICE) Pathologist Sig nature TSH 5.63 (H)Comment: 0.45 - 4.70 [facility] Biotin has been mIU/L [facility] reported to cause a negative bias, interpret results relative to patient's use of biotin. Specimen Blood - ARM, RIGHT Performing Organization Address [facility] [place] Phone Number [facility] CLIA: [id number] [place] [address] [address] POCT GLUCOSE (AUTOMATED) (08/12/2020 8:38 PM ROOFER APPRENTICE) Pathologist Sig [facility] POCT GLU 194 (H) 70 - 110 mg/dL [facility] Specimen Blood Performing Organization Address [facility] [place] Phone Number [facility] CLIA: [id number] [place] [address] LABORATORY [address] [facility] CBC WITH DIFF (08/12/2020 6:27 PM ROOFER APPRENTICE) Pathologist Sig nature WBC 5.81 4.30 - 11.10 [facility] 10*3/L [facility] RBC 2.31 (L) 3.93 - 5.25 [facility] 10*6/L [facility] HGB 7.8 (L) 11.6 - 15.0 [facility] g/dL [facility] HCT 21.8 (L) 35.7 - 45.2 % [facility] MCV 94.4 80.6 - 95.5 fL [facility] MCH 33.8 (H) 25.9 - 32.8 pg [facility] MCHC 35.8 (H) 31.6 - 35.1 [facility] g/dL HOSPITAL LABORATORY RDW-SD 67.3 (H) 39.0 - 49.9 fL [facility] RDW-CV 20.5 (H) 12.0 - 15.5 % [facility] PLT 108 (L) 166 - 358 [facility] 10*3/L [facility] MPV 9.9 9.5 - 12.9 fL [facility] NRBC/100 WBC 0.0 0.0 - 10.0 /100 [facility] WBCs [facility] NRBC x10^3 <0.01 10*3/L [facility] GRAN MAT (NEUT) % 86.3 % [facility] IMM GRAN % 0.70 % [facility] LYMPH % 4.6 % [facility] MONO % 7.7 % [facility] EOS % 0.2 % [facility] BASO % 0.5 % [facility] GRAN MAT x10^3(ANC) 5.01 1.88 - 7.09 [facility] 10*3/uL [facility] IMM GRAN x10^3 0.04 0.00 - 0.06 [facility] 10*3/uL [facility] LYMPH x10^3 0.27 (L) 1.32 - 3.29 [facility] 103/uL [facility] MONO x10^3 0.45 0.33 - 0.92 [facility] 10*3/uL [facility] EOS x10^3 <0.03 (L) 0.03 - 0.39 [facility] 103/uL [facility] BASO x10^3 0.03 0.01 - 0.[address]/[facility] LABORATORY Specimen Blood - HAND, LEFT Performing Organization Address City/State/Zipcode Phone Number [facility] CLIA: [id number] [place], [place] [id number] LABORATORY [address] BASIC METABOLIC PANEL (NA, K, CL, CO2, GLUCOSE, BUN, CREATININE, CA) (08/12/2020 6:27 PM ROOFER APPRENTICE) Pathologist Sig nature NA 123 (L) 135 - 145 [facility] mmol/L [facility] K 3.2 (L) 3.5 - 5.0 [facility] mmol/L [facility] CL 88 (L) 98 - 108 mmol/L [facility] CO2 TOTAL 26 23 - 31 mmol/L [facility] AGAP 9 2 - 16 [facility] BUN 20 7 - 23 mg/dL [facility] GLUCOSE 174 (H) 70 - 110 mg/dL [facility] CREATININE 0.91 0.50 - 1.04 [facility] mg/dL [facility] CALCIUM 9.0 8.6 - 10.6 [facility] mg/dL [facility] eGFR Calculation 60.8 mL/min/1.73m2 [facility] (Non-[facility] LABORATORY [place]) eGFR Calculation 73.6 mL/min/1.73m2 [facility] () [facility] Specimen Blood - HAND, RIGHT Narrative Performed At Association of Glomerular Filtration Rate (GFR) [facility] and Staging of Kidney Disease* + + +- + | GFR (mL/min/1.73 m2) | With Kidney Damage | Without Kidney Damage + + +- + | >90 | Stage one | Normal + + +- + | 60-89 | Stage two | Decreased GFR + + +- + | 30-59 | Stage three | Stage three + + +- + | 15-29 | Stage four | Stage four + + +- + | <15 (or dialysis) | Stage five | Stage five + + +- + *Each stage assumes the associated GFR level has been in effect for at least three months. Stages 1 to 5, with or without kidney disease, indicate chronic kidney disease. Notes: Determination of stages one and two (with eGFR >59mL/min/1.73 m2) requires estimation of kidney damage for at least three months as defined by structural or functional abnormalities of the kidney, manifested by either: Pathological abnormalities or Markers of kidney damage (including abnormalities in the composition of the blood or urine or abnormalities in imaging tests). Performing Organization Address City/[facility]/Zipcode Phone Number [facility] CLIA: [id number] [place] [address] POCT GLUCOSE (AUTOMATED) (08/12/2020 4:31 PM ROOFER APPRENTICE) [facility] POCT GLU 159 (H) 70 - 110 mg/dL [facility] Specimen Blood Performing Organization Address City/[facility] Phone Number [facility] CLIA: [id number] [place], [place] [address] LABORATORY [address] [place] [address] XR CHEST 1 VW (08/12/2020 1:16 PM ROOFER APPRENTICE) Specimen Narrative Performed At CHEST PORTABLE ONE VIEW PACS/VR/DOSE HISTORY:Edema TECHNIQUE: Frontal, portable projection of the chest is obtained. COMPARISON: 07/13/2020 FINDINGS: Slight prominence of the central vascularity seen. Heart size is enlarged. Blunting of the left costophre trino angle is noted. A right-sided Port-A-Cath is unchanged i n position. An old healed rib fracture is seen invol ving the right seventh rib. CONCLUSIONS: 1. Mild pulmonary edema, cardiomegaly and small left p leural effusion Procedure Note [facility], Radiant Results Inft User - 2019 1:41 PM ROOFER APPRENTICE CHEST PORTABLE ONE VIEW HISTORY:Edema TECHNIQUE: Frontal, portable projection of the chest is obtained. COMPARISON: 07/13/2020 FINDINGS: Slight prominence of the centr al vascularity seen. Heart size is enlarged. Blunting of the left costophre trino angle is noted. A right-sided Port-A-Cath is unchanged i n position. An old healed rib fracture is seen invol ving the right seventh rib. CONCLUSIONS: 1. Mild pulmonary edema, cardiomegaly an d small left pleural effusion Performing Organization Address City/State/Zipcode Phone Number PACS/VR/DOSE POCT GLUCOSE (AUTOMATED) (08/12/2020 11:56 AM ROOFER APPRENTICE) Pathologist Sig nature POCT GLU 127 (H) 70 - 110 mg/dL [facility] Specimen Blood Performing Organization Address City/[place] Hospital/Zipcode Phone Number [facility] CLIA: [id number] [place] [address] [place] [address] Prepare Packed RBC (in units), 1 Units (08/12/2020 11:55 AM ROOFER APPRENTICE) Cross Match Result Compatible LAB ISBT Blood Type Code 5100 LAB Unit Blood Type O Pos LAB Unit Number [id number] LAB Blood Expiration Date & LAB Time Status Information Issued LAB Product Identification Red Blood Cells LAB Product Code [id number] LAB Comment: Performed at [facility] Laboratory Services - ADC Blood Bank [address] [place] [phone] Toll Free: [phone] CLIA No. [id number] Specimen Performing Organization Address [facility] Phone Number BLD LAB POCT GLUCOSE (AUTOMATED) (08/12/2020 7:47 AM ROOFER APPRENTICE) Pathologist Sig [facility] POCT GLU 142 (H) 70 - 110 mg/dL [facility] Specimen Blood Performing Organization Address [facility] Phone Number [facility] CLIA: [id number] [place] [address] TOTAL IRON BINDING CAPACITY (08/12/2020 2:46 AM ROOFER APPRENTICE) Pathologist Sig [facility] TIBC 276 250 - 410 ug/dL [facility] Specimen Blood - ARM, RIGHT Performing Organization Address [facility] Number [facility] CLIA: [id number] [place] [address] FERRITIN SERUM (08/12/2020 2:46 AM ROOFER APPRENTICE) Pathologist Sig [facility] FERRITIN 739.0 (H) 11.0 - 264.0 ng/mL [facility] Specimen Blood - ARM, RIGHT Narrative Performed At Biotin has been reported to cause a negative [facility] bias, interpret results relative to patient's use of biotin. Performing Organization Address [facility] Number [facility] CLIA: [id number] [place] [address] IRON PANEL (08/12/2020 2:46 AM ROOFER APPRENTICE) Pathologist Sig nature IRON 91 50 - 160 ug/dL [facility] TIBC 276 250 - 410 ug/dL [facility] % FE SAT 33 20 - 50 % [facility] Specimen Blood - ARM, RIGHT Performing Organization Address [facility] Phone Number [facility] CLIA: [id number] [place] [address] FOLATE (08/12/2020 2:45 AM ROOFER APPRENTICE) Pathologist Sig nature FOLATE SER 16.0 3.0 - 20.0 ng/mL [facility] LABORATORY SERVICES Specimen Blood - ARM, RIGHT Performing Organization Address City/[facility]/Zipcode Phone Number [facility] LABORATORY SERVICES CLIA: [id number] [place] [address] [place] [address] VITAMIN B12, LEVEL (08/12/2020 2:45 AM ROOFER APPRENTICE) Pathologist Sig nature VIT B12 >1000 (H) 240 - 930 pg/mL [facility] SERVICES Specimen Blood - ARM, RIGHT Narrative Performed At Biotin has been reported to cause a positive bias, int erpret [facility] SERVICES results relative to patient's use of biotin. Performing Organization Address [facility] Phone Number [facility] SERVICES CLIA: [id number] [place] [address] [place] [address] TRANSFERRIN (08/12/2020 2:45 AM ROOFER APPRENTICE) Pathologist [facility] TRANSFERRN 175 168 - 336 mg/dL [facility]ORATORY SERVICES Specimen Blood - ARM, RIGHT Performing Organization Address [facility] Phone Number [facility] CLIA: [id number] [place] [address] [place] [address] COVID-19 (ID NOW RAPID TESTING) (08/11/2020 7:51 PM ROOFER APPRENTICE) SARS-CoV-2 Rapid ID Not Detected Not Detected [facility] LABORATORY Specimen Swab - NASOPHARYNGEAL SWAB Narrative Performed At ID NOW COVID-19 Assay is an isothermal nucleic [facility] LABORATORY acid amplification test intended for the qualitative detection of nucleic acid from SARS-CoV-2 viral RNA in nasopharyngeal (GAME OPERATOR) specimens. It is used under Emergency Use Authorization (EUA) by FDA. The limit of detection (LOD) of the assay is 125 Genome Equivalents/mL. A positive result is indicative of the presence of SARS-CoV-2 RNA. Clinical correlation with patient history and other diagnostic information is necessary to determine patient infection status. A negative (Not Detected) result does not preclude SARS-CoV-2 infection. In patients with clinical symptoms and other tests that are consistent with SARS-CoV-2 infection, negative results should be treated as presumptive negative and a new specimen should be tested with alternative PCR molecular test. Invalid: Please collect a new specimen for repeat patient testing if clinically indicated. Performing Organization Address City/State/Zipcode Phone Number [facility] CLIA: [id number] [place], [place] [address] LABORATORY [address] Type and Screen - Type and Screen expires at midnight on the 3rd day after it was drawn. A current Type and Screen is required when RBCs are requested. For all other blood products, a Type and Screen performed during the current hospitalization i... (08/11/2020 7:50 PM ROOFER APPRENTICE) Pathologist Sig nature ABO & RH O Positive LAB Comment: Performed at [facility] Laboratory [facility] Blood Bank [address] [place] [phone] Toll Free: [phone] CLIA No. [id number] IAT Negative LAB Comment: Performed at [facility] Laboratory [facility] Blood Bank [address] [place] [phone] Toll Free: [phone] CLIA No. [id number] Specimen Blood - VENOUS Performing Organization Address [facility]/Zipcode Phone Number BLD LAB CT CHEST PULMONARY ANGIOGRAM (08/11/2020 7:43 PM ROOFER APPRENTICE) Specimen Impressions Performed At PACS/VR/DOSE 1. No pulmonary embolism. 2. Pulmonary edema and moderate bilate ral pleural effusion, likely secondary to fluid overload/congestive h eart failure. Preliminary Report Dictated by Resident: Eber Ellis I, Andrew [place] MD., have reviewed this study and agree with the above report. Narrative Performed At PROCEDURE: CT ANGIO CHEST WITH CONTRAST - PE PROTOCOL PACS/VR/DOSE CLINICAL INDICATION: 74-year-old female with history o f cancer presenting with leg swelling as well as shortness o f breath. She was sent by her oncologist for evaluation of blood clots . She is on Xarelto for atrial fibrillation. COMPARISON: Chest radiograph 07/13/2020, CT abdomen an d pelvis 11/24/2017. TECHNIQUE: Helical CT was performed an d reconstructed at 1.25 mm slice thickness from lung bases to apices usin g intravenous contrast, without complication. 3D axial MIPS and coron al MPRS were generated under radiologist supervision, and reviewed to further define anatomy and possible pathology. (DFOV = 30 cm) FINDINGS: PULMONARY ARTERIES: Enhancement is satisfactory. Limited massiel luation of the subsegmental branches due to motion and mixing artifact. No filling defect is identified within the pulmonary trunk down to the s egmental levels. No CT signs of right heart strain is noted. CHEST: Lower neck/thyroid: A 0.9 cm hypoattenua ting left thyroid nodule.. Lungs: Bilateral mosaic attenuation, septal and peribr onchial thickening is noted. Moderate bilateral pleural effusion and kareen katty atelectasis of the dependent lungs is seen. Inferior lingular atelect asis/consolidation is seen. Central airway: Unremarkable. Pleura: No pleural effusion, thickening or pneumothorax. Thoracic aorta and great vessels: Norm al in diameter. Heart and pericardium: Mild coronary arterial calcific ation. Mitral annular calcification is seen. Biatrial dilatati on is noted. Lymph nodes: Few calcified hilar lymph n odes are noted. No enlarged thoracic lymph nodes. Mediastinum: Unremarkable. Thoracic spine and chest wall: Unremarkable, with norm al thoracic vertebral body heights. Other Lines/Tubes/Devices/Hardware: None Visualized upper abdomen: Previously girban ntified hypoattenuating hepatic lesions are not well evaluated on the cu rrent exam and not visualized.. Procedure Note [facility], Radiant Results Inft User - 2019 10:09 PM ROOFER APPRENTICE PROCEDURE: CT ANGIO CHEST WITH CONTRAST - PE PROTOCOL CLINICAL INDICATION: 74-year-old female with history of cancer presenting with leg swelling as well as shortness o f breath. She was sent by her oncologist for evaluation of blood clots . She is on Xarelto for atrial fibrillation. COMPARISON: Chest radiograph 07/13/2020, CT abdomen and pelvis 11/24/2017. TECHNIQUE: Helical CT was performed and reconstructed at 1.25 mm slice thickness from lung bases to apices usin g intravenous contrast, without complication. 3D axial MIPS and cavazos l MPRS were generated under radiologist supervision, and reviewed to further define anatomy and possible pathology. (DFOV = 30 cm) FINDINGS: PULMONARY ARTERIES: Enhancement is satisfactory. Limited massiel luation of the subsegmental branches due to motion and mixing artifa ct. No filling defect is identified within the pulmonary trunk down to the s egmental levels. No CT signs of right heart strain is noted. CHEST: Lower neck/thyroid: A 0.9 cm hypoattenua ting left thyroid nodule.. Lungs: Bilateral mosaic attenuation, sep holly and peribronchial thickening is noted. Moderate bilateral pleural effusi on and compression atelectasis of the dependent lungs is seen. Inferior li ngular atelectasis/consolidation is seen. Central airway: Unremarkable. Pleura: No pleural effusion, thickening or pneumothorax. Thoracic aorta and great vessels: Stormy l in diameter. Heart and pericardium: Mild coronary art erial calcification. Mitral annular calcification is seen. Biatrial dilatati on is noted. Lymph nodes: Few calcified hilar lymph n odes are noted. No enlarged thoracic lymph nodes. Mediastinum: Unremarkable. Thoracic spine and chest wall: Unremarka ble, with normal thoracic vertebral body heights. Other Lines/Tubes/Devices/Hardware: None Visualized upper abdomen: Previously gibran ntified hypoattenuating hepatic lesions are not well evaluated on the cu rrent exam and not visualized.. IMPRESSION 1. No pulmonary embolism. 2. Pulmonary edema and moderate bilater al pleural effusion, likely secondary to fluid overload/congestive h eart failure. Preliminary Report Dictated by Resident: Eber Ellis I, Andrew [place] MD., have reviewed [facility] study and agree with the above report. Performing Organization Address City/State/Zipcode Phone Number PACS/VR/DOSE URINALYSIS (08/11/2020 7:17 PM ROOFER APPRENTICE) Pathologist Sig nature APPEARANCE Clear Clear [facility] COLOR Yellow Yellow [facility] PH 6.0 4.8 - 8.0 [facility] SP GRAVITY 1.009 1.003 - 1.030 [facility] GLU U QUAL Normal Normal [facility] BLOOD 1+ (A) Negative [facility] KETONES Negative Negative [facility] PROTEIN 500 mg/dL (A) Negative [facility] UROBILIN Normal Normal [facility] BILIRUBIN Negative Negative [facility] NITRITE Negative Negative [facility] LEUK TIERRA 25/uL (A) Negative [facility] RBC/HPF 4 (H) 0 - 3 HPF [facility] WBC/HPF 5 0 - 5 HPF [facility] BACTERIA Few (A) Negative [facility] MUCOUS Slight (A) Negative LPF [facility] SQ EPITH <1 HPF [facility] HYAL CAST 10 (H) <=2 LPF [facility] GRAN CASTS 1 <=1 LPF [facility] Specimen Urine Performing Organization Address [facility] Centercode Phone Number [facility] CLIA: [id number] [place] [address] DIFF CONSULT INTERPRETATION (08/11/2020 6:41 PM ROOFER APPRENTICE) Specimen Blood - VENOUS Narrative Performed At MATURE LEUKOCYTES WITH TOXIC NEUTROPHILS, OCCASIONAL U [facility] LABORATORY SERVICES VACUOLATED NEUTROPHILS, TOXIC LEFT SHIFT, REACTIVE MONOCYTES, RARE PLASMACYTOID LYMPHOCYTES AND ABSOLUTE LYMPHOPENIA SUGGESTIVE OF SYSTEMIC INFEC TION/INFLAMMATION. EXCLUDE VIRAL ILLNESS AND SEPSIS. MACROCYTIC ANEMIA WITH POLYCHROMASIA AND ANISOPOIKILOC YTOSIS INCLUDING SPHEROCYTES, MIKE CELLS, RARE ACANTHOCYTES A ND OCCASIONAL SPHEROCYTES. EXCLUDE BLOOD LO SS/HEMOLYSIS. THROMBOCYTOPENIA WITH OCCASIONAL LARGE AND GIANT FORMS . Performing Organization Address City/[facility] Phone Number [facility] CLIA: [id number] [place], [place] [address] [address] [place] [address] RETICULOCYTES AUTOMATED (08/11/2020 6:41 PM ROOFER APPRENTICE) RETIC Count 6.14 (H) 0.51 - 1.90 % [facility] Automated [facility] RETIC Absolute 0.1081 (H) 0.0230 - 0.0950 [facility] Count 10*6/L HOSPITAL LABORATORY IRF % 28.80 (H) 2.10 - 12.60 % [facility] RETIC-HE 41.3 (H) 28.1 - 35.8 pg [facility] Specimen Blood - VENOUS Performing Organization Address City/[facility]/Zipcode Phone Number [facility] CLIA: [id number] [place] [address] [place] [address] TROPONIN I (08/11/2020 6:41 PM ROOFER APPRENTICE) [facility] TROPONIN I <0.012 <=0.034 ng/mL [facility] Specimen Blood - VENOUS Narrative Performed At Equal or Less than 0.034 ng/ml---Normal [facility] Note: Cardiac troponin begins to rise 3-4 hours after the onset of ischemia. Repeat in 4-6 hours if the sample was drawn within 3-4 hours of the onset of the symptom and found normal. Between 0.035 and 0.120 ng/mL--- Borderline. Questionable myocardial injury or necros is Note: Serial measurement may be necessary to confirm or exclude the diagnosis of myocardial injury or necrosis; Clinical correlation (symptoms, EKGs, imaging studies, and others) required; Repeat in 4-6 hours if clinically indicated. Equal or Higher than 0.121 ng/mL---Abnormal. Myocardial Injury or Necrosis Likely Biotin has been reported to cause a negative bias, interpret results relative to patient's use of biotin. Performing Organization Address City/[facility]/Zipcode Phone Number [facility] CLIA: [id number] [place] [address] [place] [address] N-TERMINAL PRO-BNP (08/11/2020 6:41 PM ROOFER APPRENTICE) [facility] NT-proBNP 4,300 (H) <=125 pg/mL [facility] Specimen Blood - VENOUS Narrative Performed At Biotin has been reported to cause a negative [facility] bias, interpret results relative to patient's use of biotin. Performing Organization Address City/State/[facility] Centercode Phone Number [facility] CLIA: [id number] [place] [address] [place] [address] COMP. METABOLIC PANEL (39442) (08/11/2020 6:41 PM ROOFER APPRENTICE) [facility] [employer] NA 121 (L) 135 - 145 [facility] mmol/L [facility] K 4.3 3.5 - 5.0 [facility] mmol/L [facility] CL 89 (L) 98 - 108 mmol/L [facility] CO2 TOTAL 24 23 - 31 mmol/L [facility] AGAP 8 2 - 16 [facility] BUN 25 (H) 7 - 23 mg/dL [facility] GLUCOSE 138 (H) 70 - 110 mg/dL [facility] CREATININE 1.03 0.50 - 1.04 [facility] mg/dL [facility] TOTAL BILI 0.9 0.1 - 1.1 mg/dL [facility] CALCIUM 8.9 8.6 - 10.6 [facility] mg/dL [facility] T PROTEIN 6.1 (L) 6.3 - 8.2 g/dL [facility] ALBUMIN 3.7 3.5 - 5.0 g/dL [facility] ALK PHOS 112 34 - 122 U/L [facility] ALTv 19 5 - 35 U/L [facility] AST(SGOT) 28 13 - 40 U/L [facility] eGFR Calculation 52.7 mL/min/1.73m2 [facility] ([facility] LABORATORY Martiniquais) eGFR Calculation 63.8 mL/min/1.73m2 [facility] ([facility]) [facility] Specimen Blood - VENOUS Narrative Performed At Association of Glomerular Filtration Rate (GFR) [facility] LAB[facility] and Staging of Kidney Disease* + + +- + | GFR (mL/min/1.73 m2) | With Kidney Damage | Without Kidney Damage + + +- + | >90 | Stage one | Normal + + +- + | 60-89 | Stage two | Decreased GFR + + +- + | 30-59 | Stage three | Stage three + + +- + | 15-29 | Stage four | Stage four + + +- + | <15 (or dialysis) | Stage five | Stage five + + +- + *Each stage assumes the associated GFR level has been in effect for at least three months. Stages 1 to 5, with or without kidney disease, indicate chronic kidney disease. Notes: Determination of stages one and two (with eGFR >59mL/min/1.73 m2) requires estimation of kidney damage for at least three months as defined by structural or functional abnormalities of the kidney, manifested by either: Pathological abnormalities or Markers of kidney damage (including abnormalities in the composition of the blood or urine or abnormalities in imaging tests). Performing Organization Address City/State/Zipcode Phone Number [facility] CLIA: [id number] [place] [address] CBC WITH DIFF (08/11/2020 6:41 PM ROOFER APPRENTICE) [facility] WBC 7.05 4.30 - 11.10 [facility] 10*3/L HOSPITAL LABORATORY RBC 1.78 (L) 3.93 - 5.25 [facility] 10*6/L [facility] HGB 6.2 (L) 11.6 - 15.0 [facility] g/dL [facility] HCT 17.8 (L) 35.7 - 45.2 % [facility] MCV 100.0 (H) 80.6 - 95.5 fL [facility] MCH 34.8 (H) 25.9 - 32.8 pg [facility] MCHC 34.8 31.6 - 35.1 [facility] g/dL [facility] RDW-SD 67.7 (H) 39.0 - 49.9 fL [facility] RDW-CV 19.0 (H) 12.0 - 15.5 % [facility] PLT 101 (L) 166 - 358 [facility] 10*3/L [facility] MPV 10.0 9.5 - 12.9 fL [facility] NRBC/100 WBC 0.0 0.0 - 10.0 /100 [facility] WBCs [facility] NRBC x10^3 <0.01 10*3/L [facility] GRAN MAT (NEUT) % 84.3 % [facility] IMM GRAN % 1.10 % [facility] LYMPH % 5.1 % [facility] MONO % 8.8 % [facility] EOS % 0.1 % [facility] BASO % 0.6 % [facility] GRAN MAT x10^3(ANC) 5.94 1.88 - 7.09 [facility] 10*3/uL [facility] IMM GRAN x10^3 0.08 (H) 0.00 - 0.06 [facility] 10*3/uL HOSPITAL LABORATORY LYMPH x10^3 0.36 (L) 1.32 - 3.29 [facility] 10*3/uL HOSPITAL LABORATORY MONO x10^3 0.62 0.33 - 0.92 [facility] 10*3/uL [facility] EOS x10^3 <0.03 (L) 0.03 - 0.39 [facility] 10*3/uL [facility] BASO x10^3 0.04 0.01 - 0.[address]uL [facility] Specimen Blood - VENOUS Performing Organization Address City/State/Zipcode Phone Number [facility] CLIA: [id number] [place] [address] documented in this encounter Visit Diagnoses Diagnosis Anemia - Primary Anemia, unspecified Shortness of breath Hypervolemia, unspecified hypervolemia t ype Edema, unspecified type Essential hypertension Unspecified essential hypertension Atrial fibrillation with RVR Atrial fibrillation Dyslipidemia Other and unspecified hyperlipidemia Type 2 diabetes mellitus with other spec ified complication Acute on chronic diastolic CHF (congesti ve heart failure), NYHA class 3 Pulmonary hypertension Other chronic pulmonary heart diseases documented in this encounter Administered Medications Medication Order MAR Action Action Date Dose Rate Site atenoloL (TENORMIN) tablet 100 mg Given 08/14/2020 9:15 AM ROOFER APPRENTICE 100 mg 100 mg, Oral, BID, First dose on Lenora 08/12/20 at 0800, Until Discontinued, Routine Given 08/13/2020 8:32 PM ROOFER APPRENTICE 100 mg Given 08/13/2020 9:10 AM ROOFER APPRENTICE 100 mg atorvastatin (LIPITOR) tablet 20 mg Given 08/13/2020 8:29 PM ROOFER APPRENTICE 20 mg 20 mg, Oral, QHS, First dose on Lenora 08/12/20 at 2100, Until Discontinued, Routine Given 08/12/2020 9:05 PM ROOFER APPRENTICE 20 mg docusate (COLACE) capsule 200 mg Given 08/14/2020 9:15 AM ROOFER APPRENTICE 200 mg 200 mg, Oral, BID, First dose on Lenora 08/12/20 at 0800, Until Discontinued, Routine Given 08/13/2020 8:29 PM ROOFER APPRENTICE 200 mg Given 08/13/2020 9:11 AM ROOFER APPRENTICE 200 mg furosemide (LASIX) injection 40 mg Given 08/14/2020 2:24 PM ROOFER APPRENTICE 40 mg 40 mg, Slow IV Push, TID, First dose on Lenora 08/12/20 at 1400, Until Discontinued, Routine Given 08/14/2020 9:14 AM ROOFER APPRENTICE 40 mg Given 08/13/2020 8:48 PM ROOFER APPRENTICE 40 mg gabapentin (NEURONTIN) capsule 100 mg Given 08/14/2020 2:24 PM ROOFER APPRENTICE 100 mg 100 mg, Oral, TID, First dose on Sun08/12/20 at 0100, Until Discontinued, Routine Given 08/14/2020 9:15 AM ROOFER APPRENTICE 100 mg Given 08/13/2020 8:29 PM ROOFER APPRENTICE 100 mg ipratropium-albuteroL (DUONEB) 0.5 mg-3 mg(2.5 mg base)/3 mL nebulizer solution 3 mL 3 mL, Inhalation, QIDPRN, Starting Sun08/12/20 at 065 5, Until Discontinued, Routine, Wheezing, Shortness of Breath, Bronchospasm, Chest tightness KCL (KLOR-CON M20) tablet 40 mEq Given 08/14/2020 9:15 AM ROOFER APPRENTICE 40 mEq 40 mEq, Oral, BID, First dose (after last modification) on Sun08/13/20 at 2000, Until Discontinued, Routine Given 08/13/2020 8:29 PM ROOFER APPRENTICE 40 mEq labetaloL (NORMODYNE) injection 10 mg Given 08/12/2020 4:16 PM ROOFER APPRENTICE 10 mg 10 mg, Slow IV Push, Q6HPRN, Starting Sun08/12/20 at 0706, Until Discontinued, Routine, For SBP > 160, DBP > 100. Hold for HR < 60 lisinopriL (PRINIVIL,ZESTRIL) tablet 10 mg 10 mg, Oral, DAILY, First dose on Sun at 0900, Until Discontinued, Routine magnesium oxide (MAG-OX 400) tablet 400 mg Given 08/13/2020 8:29 PM ROOFER APPRENTICE 400 mg 400 mg, Oral, QHS, First dose on Sun08/13/20 at 2100, Until Discontinued, Routine pantoprazole (PROTONIX) 40 mg in NaCl 0.9% Given 08/14/2020 9:1 5 AM ROOFER APPRENTICE 40 mg (NS) 100 mL MINI-BAG 40 mg, IV Piggyback, Q12H, First dose on Sun08/13/20 at 1145, Until Discontinued, 100 mL Given 08/13/2020 8:54 PM ROOFER APPRENTICE 40 mg Given 08/13/2020 1:48 PM ROOFER APPRENTICE 40 mg Polyethylene Glycol 3350 (MIRALAX) powde r 17 g Given 08/14/2020 9:15 AM ROOFER APPRENTICE 17 g 17 g, Oral, BID, First dose on Sun08/13/20 at 1145, Until Discontinued, Routine Given 08/13/2020 8:28 PM ROOFER APPRENTICE 17 g Given 08/13/2020 1:43 PM ROOFER APPRENTICE 17 g Sliding Scale Insulin-Regular + Given 08/12/2020 9:00 PM 2 Unit s Right Upper Fsbg Testing ROOFER APPRENTICE Arm-SC Subcutaneous, AC+HS, First dose on Sun08/12/20 at 0730, Until Discontinued, Routine Medication Order MAR Action Action Date Dose Rate Site amLODIPine (NORVASC) tablet 10 mg Given 08/14/2020 9:15 AM ROOFER APPRENTICE 10 mg 10 mg, Oral, DAILY, First dose on Sun08/12/20 at 0900, Until Discontinued, Routine Given 08/13/2020 9:10 AM ROOFER APPRENTICE 10 mg Given 08/12/2020 9:16 AM ROOFER APPRENTICE 10 mg furosemide (LASIX) injection 40 mg Given 08/12/2020 9:17 AM ROOFER APPRENTICE 40 mg 40 mg, IV Push, Q12H, First dose on Sun08/12/20 at 0030, Until Discontinued, Routine Given 08/12/2020 3:56 AM ROOFER APPRENTICE 40 mg hydroCHLOROthiazide (ESIDRIX) tablet 12.5 Given 08/12/2020 9:16 AM ROOFER APPRENTICE 12.5 mg mg 12.5 mg, Oral, DAILY, First dose on Sun08/12/20 at 0900, Until Discontinued, Routine iohexol (OMNIPAQUE 350 BULK-100 mL) Given 08/11/2020 7:39 PM CS T 120 mL injection 120 mL 120 mL, Intravenous, ONCE, 1 dose, Sun08/11/20 at 1945, Routine KCL (KLOR-CON M20) tablet 40 mEq Given 08/13/2020 9:10 AM ROOFER APPRENTICE 40 mEq 40 mEq, Oral, DAILY, First dose on Sun08/13/20 at 0900, Until Discontinued, Routine magnesium sulfate in water 4 gram/50 mL (8 %) New Bag 1:44 PM ROOFER APPRENTICE 4 g IV Piggyback 4 g 4 g, IV Piggyback, ONCE, 1 dose, Sun08/13/20 at 1245, Routine rivaroxaban (XARELTO) tablet 15 mg Given 08/12/2020 9:16 AM ROOFER APPRENTICE 15 mg 15 mg, Oral, DAILY, First dose on Sun08/12/20 at 0900, Until Discontinued, Routine sodium chloride tablet 1 g Given 08/12/2020 11:20 PM ROOFER APPRENTICE 1 g 1 g, Oral, Q2H, 2 doses, First dose (after last modification) on Sun08/12/20 at 2000, Last dose on Sun08/12/20 at 2200, Routine Given 08/12/2020 9:06 PM ROOFER APPRENTICE 1 g documented in this encounter Additional Health Concerns Infection Onset Date Last Indicated Resolved Time COVID-19 Rule Out 08/11/2020 08/11/2020 08/11/2020 8: 55 PM ROOFER APPRENTICE documented as of this encounter Insurance Payer Benefit Plan / Subscriber ID Effective Dates Phone Addre ss Type Group [facility] [facility] [id number] 2020-Pres Medicare Adv PLUS PLUS ent HMO CLASSIC/VALUE documented as of this encounter
[2020-09-20] MEDS ORDERED: KETOROLAC 30 MG/ML INJ ONE (09:49)
--- NOTE | 2020-09-20 09:54 | P.BOP ---
Preoperative diagnosis: infected posterior neck subq mass Postoperative diagnosis: same Primary procedure: Excision of infected posterior neck subq mass 3x3cm Estimated blood loss: <10cc Specimen: mass Findings: as above Anesthesia: MAC Complications: None Transferred to: Recovery Room Condition: Good
[2020-09-20] MEDS ORDERED: ONDANSETRON 4 MG/2 ML VIAL ONE ×2 (10:13→10:25)
--- NOTE | 2020-09-20 10:43 | OP ---
Date of Procedure: 09/20/2020 Surgeon: Greg Gamble MD Preoperative Diagnosis: Infected posterior neck mass. Postoperative Diagnosis: Infected posterior neck mass. Procedure: Excisional biopsy of infected posterior neck mass. Anesthesia: MAC plus local. Complications: None. Indications: This is a case of a 75-year-old patient comes to us complaining of a posterior neck mas s. The patient has history of ovarian cancer. The chemotherapy is on hold. The patient started to take some antibiotics. The mass still present with erythema, so we offered her excision with benefit s, alternatives, and risks including, but not limited to infection, bleeding, damage to adjacent stru ctures, anesthesia complication, recurrence, ND, and even . She also understands this may not r elieve symptoms, she might need more than one surgical intervention. She also understands she may re quire wound care and close by secondary intention. She understood she may need that. She signed a c onsent. The area of concern was marked by me and the patient in the holding room. Description Of Procedure: The patient was brought to the operating room, placed in supine position. Anesthesia was done without complication. The patient placed in lateral decubitus position with pro per protection. A time-out was called. Area was prepped and draped in usual sterile fashion. Local anesthesia was applied followed by sharp incision of the skin in a wedge fashion. Incision was jara ied down to deep subcutaneous tissue. Mass was completely excised intact. We are trying to get thang s negative margins and trying to stay away from the area of the redness, trying to minimize contact w ith the infected area and then closed this after hemostasis and after profuse irrigation. Since we d id not see any pus in that area, we closed with 3-0 chromic in the subcutaneous tissue and then 3-0 n ylon to approximate the skin. The patient tolerated the procedure well. Sponge count, instrument co unts correct. Patient sent to recovery in stable condition. In the next few days we see that the crisostomo tures are still red, we might have to remove the sutures and let it heal from secondary intention. S he understood that she wants that. CHARAN/TRISTA Voice ID: [id number] Report ID: [id number]
--- NOTE | 2020-09-20 10:49 | DS ---
Diagnosis: Infected posterior neck mass. Procedure: Excisional biopsy of infected posterior neck mass. Disposition: Home. Activity: As tolerated. No heavy lifting. Plan: Follow up in my office in 1 week. Call for appointment [phone]. Keep area dry for 48 hours, then may remove outer dressings and shower. May apply triple antibiotics and Band-Aid over the area. JHON Voice ID: [id number] Report ID: [id number]
[2020-09-20] MEDS ORDERED: dexAMETHasone 4 MG/ML VIAL ONE (11:20)
[2020-09-20 13:16] VITALS: BP 178/85; TEMP 97; O2SAT 99
== END 2020-09-20 12:05 | disposition home or self-care (01) ==
LOC: OR 08:34
PROVIDERS: ATTEND Surgery
PROC: 0JB40ZZ Excision of Right Neck Subcutaneous Tissue and Fascia, Open Approach (ICD-10-PCS; 2020-09-20)
PROC: 0JB50ZZ Excision of Left Neck Subcutaneous Tissue and Fascia, Open Approach (ICD-10-PCS; principal; 2020-09-20 09:00)
DX: L72.0 Epidermal cyst (principal); L03.221 Cellulitis of neck; L02.11 Cutaneous abscess of neck; Z20.828 Contact with and (suspected) exposure to other viral communicable diseases; I10 Essential (primary) hypertension; I48.91 Unspecified atrial fibrillation; M81.0 Age-related osteoporosis without current pathological fracture; E11.9 Type 2 diabetes mellitus without complications; Z85.43 Personal history of malignant neoplasm of ovary; Z92.21 Personal history of antineoplastic chemotherapy; Z79.84 Long term (current) use of oral hypoglycemic drugs; E78.00 Pure hypercholesterolemia, unspecified; M19.90 Unspecified osteoarthritis, unspecified site
CPT/HCPCS: 93005; 85025; 80048; 36415; 82947; 88304; 71046; 21552; U0002; J2704; J1100; J3010; J0690; J7030; J2405 ×2; 88305

== ENCOUNTER 2020-11-24 09:23 | Emergency (ER) | payer OTHER ==
--- OUTSIDE RECORDS SUMMARY | 2020-11-24 09:30 | XMS REPORT | Continuity of Care Document ---
:1945 Author Organization [facility] t Address [facility] [address] [place] [address] Care Team Providers Name Role Phone Hans VALENZUELA Primary Care Physician Provider, Urgent Care Attending Clinician Unavailable Roberto Sigala MD Attending Clinician Wlof [facility], Rohan Attending Clinician Unavailable Yahir HATHAWAY Attending Clinician Unavailable Cris HATHAWAY Attending Clinician Unavailable Eliz HATHAWAY Attending Clinician Unavailable Singer FLORES Attending Clinician Maryse VALENZUELA Attending Clinician Thuan ELLIS Attending Clinician Doctor Unassigned, Name Attending Clinician Unavailable Taryn BRANTLEY Attending Clinician Unavailable Robert MARTINEZP Attending Clinician Jean-Pierre RN Attending Clinician Unavailable Re HATHAWAY Attending Clinician Unavailable Quique BRANTLEY Attending Clinician Unavailable Elisabeth BRANTLEY Attending Clinician Unavailable Daily Truong PA-C Attending Clinician Kassandra Ragland MD Attending Clinician Goyo VALENZUELA Attending Clinician Stephanie HATHAWAY Attending Clinician Unavailable [facility]I Attending Clinician Unavailable Maryse VALENZUELA Admitting Clinician KAIDEN Admitting Clinician Unavailable GOYO Admitting Clinician Unavailable Payers Payer Name Policy Type Policy Effective Expiration Source Number Date Date TEXANPLUSTEXANPLUS [id number] 2017 Gustavo bean [id number] 2017- 00:00:00 M astrid HoffmanMO Problems Condition Condition Condition Status Onset Resolution Last Treating Co mments Source Name Details Category Date Date Treatment Clinician Date Polyneurop Polyneurop Problem Active [facility] athy due athy Due 21 Family to drug to Drug 00:00: Practic 00 e Chronic Chronic Problem Active [facility] atrial Atrial -21 Family fibrillati Fibrillati 00:00: Pr actic on on e Chronic Chronic Problem Active [place] diastolic Diastolic -21 Fami ly heart Heart 00:00: Practic failure Failure 00 e Malignant Malignant Problem Active Gordon lezamae tumor of Tumor of 7-15 Family ovary Ovary 00:00: Practic 00 e Diabetes Diabetes Problem Active Licea ge mellitus Mellitus 7-15 Family 00:00: Practic 00 e Hyperchole Hyperchole Problem Active [facility] sterolemia sterolemia 7-15 Fa felipe 00:00: Practic 00 e Neuropathy Neuropathy Problem Active [facility] 7-15 Family 00:00: Practic 00 e Essential Essential Problem Active Gordon holloway hypertensi Hypertensi 7-15 Fa felipe on 00:00: Practic 00 e Shortness Shortness [...] lymph node Ovarian Ovarian Disease Active 2017-10 [place] cancer cancer 2-10 Methodi 00:00: st 00 Ovarian Ovarian Disease Active 2017-10 Overview: [place] cancer on cancer on 10-09 Added Meth hao left left 00:00: automatic st 00 ally from request for surgery [id number] Liver Liver Disease Active 2017-10 [place] metastasis metastasis 1-02 Me thodi 00:00: st 00 Acute Acute Disease Active [place] dyspnea dyspnea 8-13 Methodi 00:00: st 00 Disorienta Disorienta Disease Active [place] tion tion 7 Methodi 00:00: st 00 Confusion Confusion Disease Active Jaswant ston with with 04-05 Methodi non-focal non-focal 00:00: st neuro exam neuro exam 00 Hypomagnes Hypomagnes Disease Active [place] emia emia 04-05 Methodi 00:00: st 00 Hyponatrem Hyponatrem Disease Active [place] ia ia 04-05 Methodi 00:00: st 00 Chronic Chronic Disease Active [place] atrial atrial 04-05 Methodi fibrillati fibrillati 00:00: st on on 00 Abnormal Abnormal Disease Active [place] brain MRI brain MRI 04-05 Meth hao 00:00: st 00 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 04-05 Meth hao 00:00: st 00 Chest pain Chest pain Disease Active [place] 704 Methodi 00:00: st 00 Anemia Anemia Disease Active [place] associated associated 6-27 Me thodi with with 00:00: st chemothera chemothera 00 py py Ascites, Ascites, Disease Active [place] malignant malignant 5-02 Meth hao 00:00: st 00 Malignant Malignant Disease Active Jaswant ston neoplasm neoplasm 4-20 Method i of left of left 00:00: st ovary ovary 00 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 4-20 Methodi 00:00: st 00 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 00:00: st of liver of liver 00 Diverticul Diverticul Disease Active [place] ar disease ar disease 3-06 Me thodi 00:00: st 00 Aortic Aortic Disease Active [place] aneurysm aneurysm 06 Method i 00:00: st 00 Blood in Blood in Disease Active [place] urine urine 3 Methodi 00:00: st 00 Hypertensi Hypertensi Disease Active [place] on on 12-04 Methodi 00:00: st 00 Hyperlipid Hyperlipid Disease Active 2017- [place] emia emia 3-06 Methodi 00:00: st 00 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 00:00: st vaginitis vaginitis 00 Wears Wears Disease Active [place] glasses glasses Methodi st Dental Dental Disease Active [place] crowns crowns Methodi status status st Use of Use of Disease Active [place] cane as cane as Methodi ambulatory ambulatory [...] Stop Date Source Natural mother Colon cancer [place] Bahai Social History Social Habit Start Date Stop Date Quantity Comments Source Sex Assigned At [facility] ethodist Exposure to Not sure [place] Metho dist SARS-CoV-2 (event) Tobacco use and 2020-11-10 2020-11-10 Never used [facility] ethodist exposure 00:00:00 00:00:00 Alcohol intake 2020-11-10 2020-11-10 Current [facility] thodist 00:00:00 00:00:00 non-drinker of alcohol (finding) Smoking Status Start Date Stop Date Source Never smoker [place] Kalyan t Medications Ordered Filled Start Stop Current Ordering Indication Dosage Frequency Signature Comments Components Source Medication Medication Date Date Medication? Clinician (SIG) Name Name polyethylen Yes 17g Q24H Take 17 g [place] e glycol 2-10 by mouth Methodi (MIRALAX) 09:05: daily as st 17 gram 07 needed for packet constipati on. rivaroxaban Yes 15mg QD Take 15 mg [place] (XARELTO) 2-10 by mouth Method i 15 mg 09:05: daily. st tablet 07 ALPRAZolam 2020- No TAKE ONE Ho [place] (XANAX) 0.5 10-26 TABLET BY Wy thodi MG tablet 00:00: 23:[address] 00 :00 MINUTES PRIOR TO SCAN ALPRAZolam 2020- No .5mg Take 1 [place] (Xanax) 0.5 10-25 tablet Metho di MG tablet 00:00: 00:00 (0.[address] 00 :00 total) by mouth once for 1 dose. Take 30 min prior to scan. ALPRAZolam 2020- No .5mg Take 1 [place] (Xanax) 0.5 10-21 tablet Metho di MG tablet 00:00: 23:59 (0.[address] 00 :00 total) by mouth once for 1 dose. Take 1 tablet (0.5 mg total) by mouth once for 1 dose. Take 30 min prior to scan. ALPRAZolam 2019-10- No .5mg Take 1 [place] (Xanax) 0.5 10-13 tablet Metho di MG tablet 00:00: 23:59 (0.[address] 00 :00 total) by mouth once for 1 dose. Take 30 min prior to scan. magnesium 2019-10 Yes 1{tbl} Q.5D Take 1 [place] oxide 400 -21 tablet by Metho di mg 00:00: mouth 2 st magnesium 00 (two) tablet times a day. albuterol 2019-10- No 2{puff} Q6H Inhale 2 [place] (PROAIR 0-13 11-12 puffs Methodi HFA) 90 00:00: 23:[address] mcg/actuati 00 :00 (six) on inhaler hours. benzonatate 2019-10- No 100mg [id number] Take 100 [place] (TESSALON) 0-07-27 [id number] mg by M ethodi 100 MG 00:00: 23:[address] capsule 00 :00 (three) times a day. amoxicillin 2020- 2020- No 1{tbl} Q.5D Take 1 [place] -pot 013 07-23 tablet by Methodi clavulanate 00:00: 23:[address] (AUGMENTIN) 00 :00 (two) 875-125 mg times a per tablet day. For 10 days (finish on 07/23) niraparib 2020-0 Yes 200mg QD Take 200 J[place] ston (Zejula) 8-14 mg by Methodi 100 mg 00:00: mouth st capsule 00 daily. ciprofloxac 2020-0 2020- No 500mg Q.5D Take 1 [place] in (Cipro) 805-17 tablet Method i 500 MG 00:00: 23:59 ([address] tablet 00 :00 total) by mouth 2 (two) times a day for 7 days. nitrofurant 2020-0 2020- No 100mg Q.5D Take 1 [place] oin, 05-05 capsule Methodi macrocrysta 00:00: 00:00 ([address] l-monohydra 00 :00 total) by te, mouth 2 (Macrobid) (two) 100 MG times a capsule day for 7 days. ALPRAZolam 2020-0 2020- No .5mg Take 1 [place] (Xanax) 0.5 7 07-31 tablet Metho di MG tablet 00:00: 23:59 (0.[address] 00 :00 total) by mouth once for 1 dose. Take 30 min prior to scan. ondansetron 2020-0 Yes Take 1 [place] (Zofran) 8 7- tablet by Meth hao MG tablet 00:00: mouth st 00 every 8 hours for 3 days after infusion, then as needed. ALPRAZolam 2020-0 2020- No .5mg Take 1 [place] (Xanax) 0.5 5-19 05-19 tablet Metho di MG tablet 00:00: 23:59 (0.[address] 00 :00 total) by mouth once for 1 dose. Take 30 min prior to scan. furosemide 2020-0 2020- No 20mg Q.5D Take 1 [place] (LASIX) 20 5-08 06-07 tablet (20 Me thodi mg tablet 00:00: 23:59 mg total) st 00 :00 by mouth 2 (two) times a day for 30 days. Take 1 tab daily starting 02/09/2020 doxycycline 2019- 2020- No 100mg Q.5D Take 1 [place] (VIBRAMYCIN 02-05 05-13 capsule Meth hao ) 100 MG 00:00: 23:59 ([address] capsule 00 :00 total) by mouth 2 (two) times a day for 5 days. atorvastati 2019- No 20mg QD Take 20 mg North n (LIPITOR) 01-25 by mouth Met hodi 20 mg 00:00: 23:[address] tablet 00 :00 gabapentin 2019- Yes Neuropathy 100mg Q.[id number] Take 1 [place] (NEURONTIN) 01-01 due to [id number] capsule Methodi 100 mg 00:00: chemotherap 3D (100 mg s t capsule 00 eutic drug total) by (HCC) mouth 3 (three) times a day. ondansetron 2019- No Take 1 Jaswant ston (ZOFRAN) 8 12-17 tablet by Met hodi MG tablet 00:00: 00:[address] 00 :00 every 8 hours for 3 days after infusion, then as needed. gabapentin 2019- No Neuropathy 100mg Q.[id number] Take 1 [place] (NEURONTIN) 12-07- due to [id number] capsule Methodi 100 mg 00:00: 00:00 chemotherap 3D ([address] capsule 00 :00 eutic drug total) by (HCC) mouth 3 (three) times a day. LORAZepam 2020- No .5mg Q24H Take 1 [place] (ATIVAN) 11-12 tablet Methodi 0.5 MG 00:00: 23:59 (0.[address] tablet 00 :00 total) by mouth daily as needed (prior to chemo for nausia / anxiety) for up to 5 doses. ondansetron 2020- No Take 1 Jaswant ston (ZOFRAN) 8 11-12- tablet by Met hodi MG tablet 00:00: 00:[address] 00 :00 every 8 hours for 3 days after infusion, then as needed. ALPRAZolam 2020- No .5mg Take 1 [place] (XANAX) 0.5 10-08 05-19 tablet Metho di MG tablet 00:00: 00:00 (0.[address] 00 :00 total) by mouth once for 1 dose. Take 30 min prior to scan. gabapentin 2018-10- No Neuropathy TAKE 1 [place] (NEURONTIN) 0-22 03-09 due to CAPSULE BY Methodi 100 mg 00:00: 00:[address] capsule 00 :00 eutic drug THREE (HCC) TIMES DAILY lisinopril Yes 5mg QD Take 5 mg [place] (PRINIVIL,Z 1-30 by mouth Meth hao ESTRIL) 5 00:00: every st mg tablet 00 morning. amLODIPine Yes 10mg QD Take 10 mg [place] (NORVASC) 1-24 by mouth Method i 10 mg 00:00: daily. st tablet 00 metFORMIN Yes 500mg Q.5D Take 500 Jaswant ston (GLUCOPHAGE 1-19 mg by Methodi ) 500 mg 00:00: mouth 2 st tablet 00 (two) times a day with meals. atenolol Yes 100mg Q.5D Take 100 [place] (TENORMIN) 1-09 mg by Methodi 100 MG 00:00: mouth 2 st tablet 00 (two) times a day. tramadol tramadol No tramadol Gordon amie 25mg [...] mg tablet mg tablet Family Practic e acetaminoph acetaminoph No acetaminop [place] en 300 en 300 hen 300 Family mg-codeine mg-codeine mg-codeine Practic 30 mg 30 mg 30 mg e tablet TAKE tablet TAKE tablet 1 TABLET BY 1 TABLET BY TAKE 1 MOUTH EVERY MOUTH EVERY TABLET BY 4 HOURS 4 HOURS MOUTH NEEDED FOR NEEDED FOR EVERY 4 PAIN PAIN HOURS NEEDED FOR PAIN albuterol albuterol No albuterol [facility] sulfate HFA sulfate HFA sulfate Family 90 90 HFA 90 Practic mcg/actuati mcg/actuati mcg/actuat e on aerosol on aerosol ion inhaler inhaler aerosol inhaler alprazolam alprazolam No alprazolam [facility] 0.5 mg 0.5 mg 0.5 mg Family tablet TAKE tablet TAKE tablet Practic ONE TABLET ONE TABLET TAKE ONE e BY MOUTH 30 BY MOUTH 30 TABLET BY MINUTES MINUTES MOUTH 30 PRIOR TO PRIOR TO MINUTES SCAN SCAN PRIOR TO SCAN amlodipine amlodipine No amlodipine [facility] 10 mg 10 mg 10 mg Family tablet Take tablet Take tablet Practic 1 tablet 1 tablet Take 1 e every day every day tablet by oral by oral every day route. route. by oral route. amoxicillin [facility]ox[facility] 500 n 500 Family mg-potassiu mg-potassiu mg-potassi Practic m m um e clavulanate clavulanate clavulanat 125 mg 125 mg e 125 mg tablet tablet tablet amoxicillin amoxicillin [facility] [phone] Family mg-potassiu mg-potassiu mg-potassi Practic m m um e clavulanate clavulanate clavulanat 125 mg 125 mg e 125 mg tablet tablet tablet atenolol atenolol No atenolol Gordon amie 100 mg 100 mg 100 mg Family tablet tablet tablet Practic e atorvastati atorvastati No atorvastat [facility] n 20 mg n 20 mg in 20 mg Famil y tablet tablet tablet Practic e atorvastati atorvastati No 1 Q1D atorvastat [facility] n 40 mg n 40 mg in 40 mg Famil y tablet Take tablet Take tablet Practic 1 tablet 1 tablet Take 1 e every day every day tablet by oral by oral every day route. route. by oral route. ciprofloxac ciprofloxac ciprofloxa [facility] in 500 mg in 500 mg shavonne 500 mg Family tablet TAKE tablet TAKE tablet Practic 1 TABLET BY 1 TABLET BY TAKE 1 e MOUTH TWICE MOUTH TWICE TABLET BY DAILY DAILY MOUTH TWICE DAILY doxycycline doxycycline No doxycyclin [facility] hyclate 100 hyclate 100 e hyclate Family mg capsule mg capsule 100 mg P ractic TAKE 1 TAKE 1 capsule e CAPSULE BY CAPSULE BY TAKE 1 MOUTH TWICE MOUTH TWICE CAPSULE BY DAILY FOR DAILY FOR MOUTH 10 DAYS 10 DAYS TWICE TAKE WITH A TAKE WITH A DAILY FOR FULL GLASS FULL GLASS 10 DAYS OF WATER OF WATER TAKE WITH AND DO NOT AND DO NOT A FULL LIE DOWN LIE DOWN GLASS OF FOR AT FOR AT WATER AND LEAST 30 LEAST 30 DO NOT LIE MINUTES MINUTES DOWN FOR AT LEAST 30 MINUTES ferrous ferrous No ferrous [place] e sulfate 325 sulfate 325 sulfate Family mg (65 mg mg (65 mg 325 mg (65 Practic iron) iron) mg iron) e tablet TAKE tablet TAKE tablet 1 TABLET BY 1 TABLET BY TAKE 1 MOUTH TWICE MOUTH TWICE TABLET BY DAILY DAILY MOUTH TWICE DAILY Flovent HFA Flovent HFA No Flovent [place] [...] by oral needed. needed. route as needed. furosemide furosemide No furosemide [place] 40 mg 40 mg 40 mg Family tablet TAKE tablet TAKE tablet Practic 1 TABLET BY 1 TABLET BY TAKE 1 e MOUTH ONCE MOUTH ONCE TABLET BY DAILY DAILY MOUTH ONCE DAILY gabapentin gabapentin No gabapentin [place] 100 mg 100 mg 100 mg Family capsule capsule capsule Practi c TAKE 1 TAKE 1 TAKE 1 e CAPSULE BY CAPSULE BY CAPSULE BY MOUTH THREE MOUTH THREE MOUTH TIMES DAILY TIMES DAILY THREE TIMES DAILY lisinopril lisinopril No lisinopril [place] 10 mg 10 mg 10 mg Family tablet TAKE tablet TAKE tablet Practic 1 TABLET BY 1 TABLET BY TAKE 1 e MOUTH ONCE MOUTH ONCE TABLET BY DAILY DAILY MOUTH ONCE DAILY lisinopril lisinopril No lisinopril [place] 5 mg tablet 5 mg tablet 5 mg F amily Take 1 Take 1 tablet Practic tablet tablet Take 1 e every day every day tablet by oral by oral every day route. route. by oral route. lorazepam lorazepam No lorazepam [facility] 0.5 mg 0.5 mg 0.5 mg Family tablet tablet tablet Practic e magnesium magnesium No magnesium [place] oxide 400 oxide 400 oxide 400 Family mg (241.3 mg (241.3 mg (241.3 Practic mg mg mg e magnesium) magnesium) magnesium) tablet TAKE tablet TAKE tablet 1 TABLET BY 1 TABLET BY TAKE 1 MOUTH TWICE MOUTH TWICE TABLET BY DAILY DAILY MOUTH TWICE DAILY metformin metformin No metformin [place] 500 mg 500 mg 500 mg Family tablet TAKE tablet TAKE tablet Practic 1 TABLET BY 1 TABLET BY TAKE 1 e MOUTH TWICE MOUTH TWICE TABLET BY DAILY WITH DAILY WITH MOUTH MEALS MEALS TWICE DAILY WITH MEALS ofloxacin ofloxacin No ofloxacin [facility] 0.3 % ear 0.3 % ear 0.3 % ear Family drops drops drops Practic e ondansetron ondansetron No 1 Q8H ondansetro [facility] 8 mg 8 mg n 8 mg [...] needed for 2 days. [facility] HCl 8 mg n HCl 8 mg F amily tablet TAKE tablet TAKE tablet Practic 1 TABLET BY 1 TABLET BY TAKE 1 e MOUTH EVERY MOUTH EVERY TABLET BY 8 HOURS FOR 8 HOURS FOR MOUTH 3 DAYS 3 DAYS EVERY 8 AFTER AFTER HOURS FOR INFUSION INFUSION 3 DAYS THEN THEN AFTER NEEDED NEEDED INFUSION THEN NEEDED potassium potassium No potassium [facility] chloride ER chloride ER chloride [facility] 20 mEq 20 mEq ER 20 mEq Practi c tablet,exte tablet,exte tablet,ext e nded nded ended release(par release(par release(pa t/cryst) t/cryst) rt/cryst) TAKE 1 TAKE 1 TAKE 1 TABLET BY TABLET BY TABLET BY MOUTH ONCE MOUTH ONCE MOUTH ONCE DAILY DAILY DAILY prochlorper prochlorper No prochlorpe [facility] azine azine razine Family maleate 10 maleate 10 maleate 10 Practic mg tablet mg tablet mg tablet e spironolact spironolact No spironolac [facility] one 25 mg one 25 mg tone 25 mg Family tablet TAKE tablet TAKE tablet Practic 1 2 (ONE 1 2 (ONE TAKE 1 2 e HALF) HALF) (ONE HALF) TABLET BY TABLET BY TABLET BY MOUTH ONCE MOUTH ONCE MOUTH ONCE DAILY DAILY DAILY Immunizations Ordered Immunization Filled Immunization Date Status Commen ts Source Name Name PFIZER COVID-19 MRNA 2020-11-06 Completed Anastacia ocampo VACCINATION 00:00:00 Bahai Vital Signs Vital Name Observation Time Observation Value Comments Source Height 2020-04-14 00:00:00 67 [in_i] [facility] BMI (Body Mass 2020-04-14 00:00:00 26.2 kg/m2 [facility] Family Index) Practice Body Weight 2020-04-14 00:00:00 167 [lb_av] [facility] Systolic blood 2020-11-10 09:04:00 170 mm[Hg] Anastaciato n Bahai pressure Diastolic blood 2020-11-10 09:04:00 72 mm[Hg] [place] Bahai pressure Heart rate 2020-11-10 09:04:00 62 /min [place] Body height 2020-11-10 09:04:00 170.2 cm [place] Body weight 2020-11-10 09:04:00 77.656 kg [place] BMI 2020-11-10 09:04:00 26.81 kg/m2 [place] Respiratory rate 2020-10-13 11:17:00 18 /min Anastacia [place] Oxygen saturation in 2020-10-13 11:17:00 100 /min [place] Arterial blood by Pulse oximetry Body temperature 2020-10-13 11:02:00 36.22 Lauren Anastacia [place] Procedures Procedure Date / Time Performing Clinician Source Performed CT CHEST W WO CONTRAST 2020-11-09 13:32:46 Debbie Sigala ABDOMEN W WO CONTRAST PELVIS W CONTRAST MAGNESIUM LEVEL 2020-11-09 12:20:00 Debbie Sigala HC COMPLETE BLD COUNT 2020-11-09 12:20:00 Debbie Sigala W/AUTO DIFF COMPREHENSIVE METABOLIC 2020-11-09 12:20:00 Debbie Sigala PANEL ESTIMATED GFR 2020-11-09 12:20:00 Debbie Sigala CANCER ANTIGEN 125 2020-10-11 07:03:00 Debbie Sigala CBC WITH PLATELET AND 2020-10-11 07:03:00 Debbie Sigala DIFFERENTIAL COMPREHENSIVE METABOLIC 2020-10-11 07:03:00 Debbie Sigala PANEL MAGNESIUM LEVEL 2020-10-11 07:03:[address] SKULL BASE TO MID 2020-08-18 [...] CANCER ANTIGEN 125 2020-06-21 13:21:00 Debbie Sigala Bahai COMPREHENSIVE METABOLIC 2020-06-21 13:21:00 Debbie Sigala PANEL [...] BLOOD CELLS 2020-03-25 12:52:31 Debbie Sigala ed TYPE AND SCREEN 2020-03-24 09:47:00 Debbie Sigala CANCER ANTIGEN 125 2020-03-20 08:27:00 Debbie Sigala Bahai COMPREHENSIVE METABOLIC 2020-03-20 08:27:00 Debbie Sigala Bahai PANEL CBC WITH PLATELET AND 2020-03-20 08:27:00 Debbie Sigala Bahai DIFFERENTIAL COMPREHENSIVE METABOLIC 2020-02-26 09:40:00 Debbie Sigala Bahai PANEL HC COMPLETE BLD COUNT 2020-02-26 09:40:00 Debbie Sigala Bahai W/AUTO DIFF ABSOLUTE NEUTROPHIL COUNT 2020-02-26 09:40:00 Debbie Sigala ed Bahai MAGNESIUM LEVEL 2020-02-26 09:40:00 Debbie Sigala Bahai ESTIMATED GFR 2020-02-26 09:40:00 Debbie Sigala Bahai PET CT SKULL BASE TO MID 2020-02-24 16:41:20 Kanwal Truong Bahai THIGH Daily POC GLUCOSE 2020-02-24 14:26:00 Kanwal Truong Meth odist Daily POC GLUCOSE 2020-02-06 11:28:00 Courtney Bernal Me thodist POC GLUCOSE 2020-02-06 07:48:00 Courtney Bernal Me thodist HC COMPLETE BLD COUNT 2020-02-06 06:20:00 Courtney Bernal Bahai W/AUTO DIFF BASIC METABOLIC PANEL 2020-02-06 06:20:00 Courtney Bernal Bahai ESTIMATED GFR 2020-02-06 06:20:00 Courtney Bernal Me thodist POC GLUCOSE 2020-02-05 21:09:00 Courtney Bernal Me thodist POC GLUCOSE 2020-02-05 17:15:00 Courtney Bernal Me thodist POC GLUCOSE 2020-02-05 11:18:00 Courtney Bernal Me thodist POC GLUCOSE 2020-02-05 08:47:00 Courtney Bernal Me thodist TTE COMPLETE, WO CONTRAST, 2020-02-05 08:14:51 Courtney Bernal Bahai WO DOPPLER HC COMPLETE BLD COUNT 2020-02-05 05:05:00 Courtney Bernal Bahai W/AUTO DIFF BASIC METABOLIC PANEL 2020-02-05 05:05:00 Veronica Bernaldya Anastacia ocampo Bahai ESTIMATED GFR 2020-02-05 05:05:00 Courtney Bernal Me thodist LACTIC ACID LEVEL, SEPSIS 2020-02-04 21:24:00 John Ragland - NOW AND REPEAT 2X EVERY 3 HOURS TROPONIN 2020-02-04 21:24:00 ClaudiaмарияCourtney torres [place] Me thodist POC GLUCOSE 2020-02-04 20:22:00 Courtney Bernal [place] Me thodist POC GLUCOSE 2020-02-04 18:24:00 ZehraCourtney torres Can Me thodist TROPONIN 2020-02-04 17:35:00 John [...] COMPLETE BLD COUNT 2020-02-04 13:05:00 John Ragland Bahai W/AUTO DIFF COMPREHENSIVE METABOLIC 2020-02-04 13:05:00 John Ragland [place] PANEL TROPONIN 2020-02-04 13:05:00 John Ragland Me thodist B NATRIURETIC PEPTIDE 2020-02-04 13:05:00 John Ragland Bahai ESTIMATED GFR 2020-02-04 13:05:00 John Ragland Me [...] Sigala MANUAL DIFFERENTIAL 2019-12-03 09:27:00 Debbie Sigala Plan of Care Planned Activity Planned Date Details Comments Source Future Scheduled Test 2020-11-27 COVID-19 VACCINE (2 [place] [facility]ai 00:00:00 of 2 - Pfizer series) [code = COVID-19 VACCINE (2 of 2 - Pfizer series)] Future Scheduled Test 2013-12-30 [facility]IN[facility] 00:[facility]:00 (#2) [code = SHINGLES VACCINES (#2)] Future Scheduled Test 1997 BREAST CANCER [place]ai 00:00:00 SCREENING [code = BREAST CANCER SCREENING] Future Scheduled Test 1997 COLONOSCOPY [place] 00:00:00 SCREENING [code = COLONOSCOPY SCREENING] Future Scheduled Test 1957 DIABETES: RETINAL [facility] Bahai 00:00:00 EYE EXAM [code = DIABETES: RETINAL EYE EXAM] Future Scheduled Test 1957 DIABETIC FOOT EXAM [place] [facility]ai 00:00:00 [code = DIABETIC FOOT EXAM] Future Appointment 2020-12-21 Pam Sara-Burton, [facility] Family 00:00:[address]; [address], [place] [address] Encounters Start End Encounter Admission Attending Care Care Encounter Source Date/Time Date/Time Type Type Clinicians Facility Department ID 2020-11-21 2020-11-21 Urgent Provider, [facility] [id number] 15:30:07 15:50:07 Care [facility] [id number] [facility] [id number] [facility] [id number] nal [address] 2020-11-10 2020-11-10 Outpatient KAIDEN, [facility] [id number] [place] 00:00:00 00:00:00 TARRIK 154 Method i 2020-11-09 2020-11-09 Outpatient KAIDEN, [facility] [id number] [place] 00:00:00 00:00:00 TARRIK 585 Method i 2020-11-09 2020-11-09 Outpatient KAIDEN, [facility] [id number] [place] 00:00:00 00:00:00 TARRIK 465 Method i 2020-11-06 2020-11-06 Outpatient [facility] [id number] [place] 00:00:00 00:00:00 261 Method i 2020-10-22 2020-10-22 Pam [place] - [id number] V illage 00:00:00 00:00:00 [facility] [place] PROJECT COACH: Medical - Practi c [address] [email or web address], [address], [place] [address] , Ph. 2020-10-13 2020-10-13 Outpatient KAIDEN, [facility] [id number] [place] 00:00:00 00:00:00 TARRIK 669 Method i 2020-10-13 2020-10-13 Outpatient KAIDEN, [facility] [id number] [place] 00:00:00 00:00:00 TARRIK 662 Method i 2020-08-18 2020-08-18 Outpatient KAIDEN, [facility] [id number] [place] 00:00:00 00:00:00 TARRIK 208 Method i 2020-08-18 2020-08-18 Outpatient KAIDEN, [facility] [id number] [place] 00:00:00 00:00:00 TARRIK 163 Method i 2020-08-18 2020-08-18 Outpatient KAIDEN, [facility] [id number] [place] 00:00:00 00:00:00 TARRIK 873 Method i 2020-08-16 2020-08-16 Transition [place] 1.2.840.114 [id number] 00:00:00 00:00:00 of Care Karime Vargas [id number] [place] 4.2.7.2.686 [id number] 2020-08-11 2020-08-14 Hospital Juancarlos Dexter [facility] 1.2.840.1 14 [id number] 18:00:00 15:57:00 Encounter Martin Serratex [place] [id number] [place] 4.2.7.2.686 [place] [id number] 2020-08-11 2020-08-11 Telephone kenia [facility] 1.2.840.114 [id number] 00:00:00 00:00:00 [facility] [id number] [place] 4.2.7.2.686 Professio [phone] nal 044 Office Building One 2020-08-11 2020-08-11 Orders Doctor BERNIE 1.2.840.114 [id number] 00:00:00 00:00:00 Only Unassigned, NA 350.1.13.10 [place] [facility] 4.2.7.2.686 [id number] 2020-08-11 2020-08-11 Pam [facility] - [id number] V illage 00:00:00 00:00:00 [facility], PROJECT COACH: Medical - Practi c 9235 Rehana VM_HOU_V@H_ e [facility], [place] [address], [place] [address] , Ph. 2020-07-22 2020-07-22 Outpatient KAIDEN, [facility] [id number] [place] 00:00:00 00:00:00 TARRIK [address] 2020-07-21 2020-07-21 Outpatient KAIDEN, [facility] [id number] [place] 00:00:00 00:00:00 TARRIK [address] 2020-07-21 2020-07-21 Outpatient KAIDEN, [facility] [id number] [place] 00:00:00 00:00:00 TARRIK [address] 2020-07-20 2020-07-20 Outpatient KAIDEN, [facility] [id number] [place] 00:00:00 00:00:00 TARRIK 973 Method i 2020-07-14 2020-07-14 Telephone Provider, [facility] 1.2.840.114 [id number] 00:00:00 00:00:00 [facility] Urgent Health 350.1.13.10 Care [place] 4.2.7.2.686 Professio [phone] nal 044 Office Building One 2020-07-13 2020-07-13 [facility] 1.2.840.114 [id number] 12:17:21 23:59:00 Encounter Chiara [place] 350.1.13.10 [place] 4.2.7.2.686 [place] [id number] 2020-07-13 2020-07-13 Urgent Provider, [facility] 1.2.217.058 [id number] 11:38:56 12:16:03 Care [facility] Urgent Health [id number] [facility] 4.2.7.2.686 Professio [phone] nal 044 Office Building One 2020-06-23 2020-06-23 Outpatient KAIDEN, [facility] [id number] [place] 00:00:00 00:00:00 TARRIK 052 Method i 2020-06-23 2020-06-23 Outpatient KAIDEN, [facility] [id number] [place] 00:00:00 00:00:00 TARRIK 261 Method i 2020-05-12 2020-05-12 Outpatient KAIDEN, [facility] [id number] [place] 00:00:00 00:00:00 TARRIK 125 Method i 2020-05-07 2020-05-07 Outpatient KAIDEN, [facility] [id number] [place] 00:00:00 00:00:00 TARRIK 579 Method i 2020-05-07 2020-05-07 Outpatient KAIDEN, [facility] [id number] [place] 00:00:00 00:00:00 TARRIK 592 Method i 2020-04-14 2020-04-14 Pam [facility] [place] - [id number] V illage 00:00:00 00:00:00 [facility] PROJECT COACH: Medical - Practi c 9235 Rehana VM_HOU_V@H_ e [facility], [address], [place] [address] , Ph. 2020-03-25 2020-03-25 Outpatient KAIDEN, [facility] [id number] [place] 00:00:00 00:00:00 TARRIK [address] 2020-03-24 2020-03-24 Outpatient KAIDEN, [facility] [id number] [place] 00:00:00 00:00:00 TARRIK [address] 2020-03-24 2020-03-24 Outpatient KAIDEN, [facility] [id number] [place] 00:00:00 00:00:00 TARRIK [address] 2020-02-26 2020-02-26 Outpatient KAIDEN, [facility] [id number] [place] 00:00:00 00:00:00 TARRIK [address] 2020-02-25 2020-02-25 Outpatient KAIDEN, [facility] [id number] [place] 00:00:00 00:00:00 TARRIK [address] 2020-02-24 2020-02-24 Outpatient KAIDEN, [facility] [id number] [place] 00:00:00 00:00:00 TARRIK [address] 2020-02-04 2020-02-06 Outpatient MATHIVANAN, [facility] [id number] [place] 00:00:00 00:00:00 COURTNEY [address] 2020-01-15 2020-01-15 Outpatient KAIDEN, [facility] [id number] [place] 00:00:00 00:00:00 TARRIK [address] 2020-01-14 2020-01-14 Outpatient KAIDEN, [facility] [id number] [place] 00:00:00 00:00:00 TARRIK [address] 2019-12-18 2019-12-18 Outpatient KAIDEN, [facility] [id number] [place] 00:00:00 00:00:00 TARRIK [address] 2019-12-03 2019-12-03 Outpatient KAIDEN, [facility] [id number] [place] 00:00:00 00:00:00 TARRIK [address] 2019-12-03 2019-12-03 Outpatient KAIDEN, [facility] [id number] [place] 00:00:00 00:00:00 TARRIK [address] 2019-10-10 2019-10-10 Outpatient KAIDEN, [facility] [id number] [place] 00:00:00 00:00:00 TARRIK [address] 2019-09-22 2019-09-22 Outpatient SHKEDY, [facility] [id number] [place] 00:00:00 00:00:00 [place] [address] 2019-09-01 2019-09-01 Outpatient SHKEDY, [facility] [id number] [place] 00:00:00 00:00:00 [place] [address] 2019-08-14 2019-08-14 Outpatient SHKEDY, [facility] [id number] [place] 00:00:00 00:00:00 [place] [address] 2019-08-14 2019-08-14 Outpatient [facility] [id number] [place] 00:00:00 00:00:[address] 2019-08-13 2019-08-13 Outpatient [facility] [id number] [place] 00:00:00 00:00:[address] 2019-08-12 2019-08-12 Outpatient [facility] [id number] [place] 00:00:00 00:00:[address] 2019-08-11 2019-08-11 Outpatient [facility] [id number] [place] 00:00:00 00:00:[address] 2019-08-07 2019-08-07 Outpatient SHKEDY, [facility] [id number] [place] 00:00:00 00:00:00 [place] [address] 2019-08-06 2019-08-06 Outpatient [facility] [id number] [place] 00:00:00 00:00:[address] 2019-08-04 2019-08-04 Outpatient [facility] [id number] [place] 00:00:00 00:00:[address] 2019-08-01 2019-08-01 Outpatient SHKEDY, [facility] [id number] [place] 00:00:00 00:00:00 [place] [address] 2019-08-01 2019-08-01 Outpatient [facility] [id number] [place] 00:00:00 00:00:[address] 2019-07-31 2019-07-31 Outpatient SHKEDY, [facility] [id number] [place] 00:00:00 00:00:00 [place] [address] 2019-07-31 2019-07-31 [facility] [id number] [place] 00:00:00 00:00:[address] 2019-07-30 2019-07-30 [facility]patient [facility] [id number] [place] 00:00:00 00:00:[address] 2019-07-29 2019-07-29 Outpatient [facility] [id number] [place] 00:00:00 00:00:[address] 2019-07-25 2019-07-25 Outpatient SHKEDY, [facility] [id number] [place] 00:00:00 00:00:00 [place] [address] 2019-07-25 2019-07-25 Outpatient [facility] [id number] [place] 00:00:00 00:00:[address] 2019-07-23 2019-07-23 Outpatient [facility] [id number] [place] 00:00:00 00:00:[address] 2019-07-21 2019-07-21 Outpatient [facility] [id number] [place] 00:00:00 00:00:[address] 2019-07-18 2019-07-18 Outpatient [facility] [id number] [place] 00:00:00 00:00:[address] 2019-07-17 2019-07-17 Outpatient SHKEDY, [facility] [id number] [place] 00:00:00 00:00:00 [place] [address] 2019-07-17 2019-07-17 Outpatient [facility] [id number] [place] 00:00:00 00:00:[address] 2019-07-16 2019-07-16 [facility] [id number] [place] 00:00:00 00:00:[address] 2019-07-15 2019-07-15 Outpatient [facility] [id number] [place] 00:00:00 00:00:[address] 2019-07-14 2019-07-14 Outpatient [facility] [id number] [place] 00:00:00 00:00:[address] 2019-07-11 2019-07-11 Outpatient [facility] [id number] [place] 00:00:00 00:00:[address] 2019-07-10 2019-07-10 Outpatient CHI, [facility] [id number] [place] 00:00:00 00:00:00 [place] [address] 2019-07-10 2019-07-10 Outpatient [facility] [id number] [place] 00:00:00 00:00:[address] 2019-07-08 2019-07-08 Outpatient [facility] [id number] [place] 00:00:00 00:00:[address] 2019-07-07 2019-07-07 Outpatient [facility] [id number] [place] 00:00:00 00:00:00 062 Method i 2019-07-04 2019-07-04 Outpatient [facility] [id number] [place] 00:00:00 00:00:00 063 Method i 2019-07-03 2019-07-03 Outpatient SHKEDY, [facility] [id number] [place] 00:00:00 00:00:00 [place] [address] 2019-07-01 2019-07-01 Outpatient SHKEDY, [facility] [id number] [place] 00:00:00 00:00:00 [place] [address] 2019-06-23 2019-06-24 Outpatient SHKEDY, [facility] [id number] [place] 00:00:00 00:00:00 [place] [address] 2019-06-23 2019-06-23 Outpatient SHKEDY, [facility] [id number] [place] 00:00:00 00:00:00 [place] [address] 2019-06-06 2019-06-06 Outpatient KAIDEN, [facility] [id number] [place] 00:00:00 00:00:00 TARRIK [address] Results Test Description Test Time Test Comments Results Result Sourc e Comments CT Chest W Wo [facility], [place] Contrast Abdomen 9 Radiology Results M ethodist W Wo Contrast 15:54:32 Incoming - 11/09/2020 Pelvis W 3:57 PM Contrast CSTEXAMINATION: CT CHEST W WO CONTRAST ABDOMEN W WO CONTRAST PELVIS W CONTRASTCLINICAL HISTORY: 75 years Female C80.0 Disseminated malignant neoplasm, 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 Precontrast series of the chest and abdomen were included. Oral contrast was not administered. Sagittal and coronal computerized reformatted images were obtained. CT imaging was performed with iterative reconstruction techniques and/or automated exposure control to reduce radiation dose. COMPARISON: PET/CT 08/18/2020, 05/07/2020, 02/24/2020, 10/10/2019, 06/06/2019, MRI abdomen 03/07/2019, 11/29/2018, CTA chest 05/13/2018IMPRESSION:C HEST:Lungs: Mild subtle multifocal groundglass in both lungs and mild smooth interlobular septal thickening with basal predominance. No pleural effusion or pneumothorax. Calcified pulmonary nodules consistent with old granulomatous disease. There is development of few subcentimeter groundglass foci. For reference:1. 7 mm focus of groundglass in the left lower lobe superior segment (series 2, image 41), new since prior exams.2. 4 mm focus of peripheral groundglass left upper lobe laterally (series 2, image 26).3. 3 mm groundglass focus right lower lobe posteriorly (series 2, image 52).4. 6 mm focus of groundglass in the right lower lobe lateral basal segment (series 3, image 63).Heart, vasculature: Right chest wall port with catheter with tip in the superior vena cava. Mild to moderate cardiomegaly with biatrial enlargement. Trace pericardial fluid. Caliber of the great vessels is normal. No central pulmonary embolism.Lymph nodes: No supraclavicular, axillary or mediastinal lymphadenopathy. ABDOMEN:Upper abdominal organs: Liver: There is a 1.5 x 1.3 cm hypoenhancing focus with capsular retraction in hepatic segment 5, decreased from 2.6 cm (series 3, image 86), likely sequela of previously treated lesion. No new suspicious enhancing hepatic lesions visualized.Gallbladde r: Nondistended, normal. Bile ducts: No intra or extrahepatic biliary ductal dilatation.Spleen: Normal.Pancreas: Normal.Adrenal Glands: Normal.Kidneys: No hydronephrosis. No obstructing renal or ureteral calculi.Bowel and mesentery: Large and small bowel are normal in caliber without focal wall thickening or mesenteric fat stranding. Few diverticula of the descending and sigmoid colon. Normal appendix. The bowel is otherwise normal.No free intraperitoneal gas or fluid. Vasculature: Abdominal aorta is of normal caliber. Celiac artery, superior and inferior mesenteric arteries, superior mesenteric and portal veins appear patent. Moderate calcified and non-calcified atherosclerotic disease of the abdominal aorta and branch vessels.Lymph nodes: No abdominal or retroperitoneal lymphadenopathy. PELVIS:Urinary bladder: Normal.Hysterectomy. No adnexal region masses.Lymph nodes: Redemonstrated is a borderline enlarged right common iliac lymph node which was previously FDG avid on prior PET/CT, measuring 1.4 x 0.9 cm, not significantly changed in size since the 08/18/2020 PET/CT examination. No new pelvic lymphadenopathy.MUSCU LOSKELETAL: No suspicious lytic or blastic osseous lesions. The superficial soft tissues are unremarkable. Age appropriate degenerative changes of the spine. Chronic moderate L5 superior endplate compression fracture. Lower lumbar spine posterior decompression postoperative changes.SUMMARY:1. Redemonstrated borderline enlarged 1.4 x 0.9 cm right common iliac lymph node previously demonstrating FDG avidity on prior PET/CT, not significantly changed in size.2. Development of few scattered subcentimeter foci of groundglass in both lungs superimposed on subtle patchy and confluent groundglass and smooth interlobular septal thickening, findings are likely infectious/inflammato ry or mild pulmonary edema. Continued attention on subsequent examinations to confirm resolution.3. Progressive involution of treated lesion in hepatic segment 5.4. No other sites of new or progressive metastatic disease in the chest, abdomen or pelvis.[facility]-[id number] B Cancer antigen 125 2020-10-12 15:11:00 Test Item Value Reference Range Interpretation Comme nts CA 125 (test code = 166 U/mL <[address] was performed using 37689-3) the Jani CoulterChemilum inescent method. Values obtained fromdifferent assay methods c annot be usedinterchange ably. CA 125 levels, regardl ess ofvalue, should not be i nterpreted as absoluteevidenc e of the presence or absence of d isease. TEMO (test code = TEMO) FASTING:YESFASTING: YES RAC (test code = RAC) Performing Organization Information: Site ID: [facility] Address: [address] [place] [address] Director: Dr. Bryce Drew Lab Interpretation (test Abnormal code = 47874-1) [place] MethodistPET/CT Skull Base To Mid [id number] 17:19:52Hm Interface, Radiology Results 08/18/2020 5:23 PM CSTPROCEDURE: PET CT SKULL [...] in hypermetabolism, compatible with stable metastatic disease. [facility] [id number] 13:10:19 Test Item Value Reference Range Interpretation Comments POC glucose (test 93 mg/dL 65-99 Interactive Multimedia Designer N azar: Loan code = 18333-4) TrinhDevice ID: [id number] [place] BahaiPrepare RBC, 2 [id number] 13:17:00 Test Item Value Reference Range Interpretation Comments Product name (test code Red Blood Cells -1, = 25) Leukored Unit number (test code [id number] = 8134865) Product code (test code Y1301X50 = 3092) Dispense status (test Transfused code = 24) Blood expiration date (test code = 302) Blood type code (test 5100 code = 308) Blood type (test code = O POSITIVE 1314) Compatibility (test Compatible code = 6400) [place] MethodistType and shyvia7245-95-07 17:00:00 Test Item Value Reference Range Interpretation Comments ABO grouping (test code O Bloo d is available. = 883-9) 07/20/20 17:01 Eduarda Myalil Rh type (test code = POS 67498-1) Antibody screen (gel) NEG (test code = 890-4) [place] MethodistCBC [id number] 11:41:00CBC morphologyComment: Anisocytosis 1 +Macrocytosis 1 +Poikilocytosis 1 +Hypochromasia 1 +[place] cells1 + NORMALQUEST DIAGNOSTICS GUSTINEFASTING:NOFASTING: NOPerforming Organization Information: SiteID: [facility] Address: [address] [place] [address] Director: Bryce Drew [place] [facility] [id number] 14:08:00 Test Item Value Reference Interpretation Comments Range Urine culture (test SEE NOTE A CULTUR E, URINE, code = 630-4) ROUTINE Nm public health microbiologist Number: [id number] Test Status: F inal Specimen Source : URINE, CLEAN [facility] Specimen Qualit y: Adequate Resul t: Greater [...] r P. mirabilis: Cefazolin is resistant if DE C > or = 8 mcg/mL. (Distinguishing [...] RAC) Organization Information: Site ID: RGA [facility] Address: [address] [place] [address] Director: Bryce Drew Lab Interpretation Abnormal (test code = 78428-4) [place] MethodistUrinalysis, automated with irisqnqhbp3992-18-46 14:08:00 Test Item Value Reference Range Interpretation Comments Color, UA (test code YELLOW YELLOW = 5778-6) Appearance (test TURBID CLEAR A code = 5767-9) Specific gravity, 1.016 1.001-1.035 urine (test code = 5811-5) pH, urine (test code 5.5 5.0-8.0 = 5803-2) Glucose, urine (test NEGATIVE NEGATIVE code = 24088-9) Bilirubin, UA (test NEGATIVE NEGATIVE code = 5770-3) Ketones, UA (test TRACE NEGATIVE A code = 2624-8) Occult blood, urine 2+ NEGATIVE A (test code = 5794-3) Protein, UA (test 2+ NEGATIVE A code = 70718-8) Nitrite, UA (test NEGATIVE NEGATIVE code = 5802-4) Leukocyte esterase, 3+ NEGATIVE A UA (test code = 5799-2) WBC, UA (test code = > OR = 60 See_Comment A [Autom ated 5821-4) message] The system which generated this result transmitted reference range : < OR = 5 /HPF. The reference range was not used to interpr et this result as normal/abnormal . RBC, UA (test code = 3-10 See_Comment A [Autom ated 50056-2) message] The system which generated this result transmitted reference range : < OR = 2 /HPF. The reference range was not used to interpr et this result as normal/abnormal . Squamous epithelial 0-5 See_Comment [Automa terence cells, UA (test code message ] The = 68679-5) system which generated this result transmitted reference range : < OR = 5 /HPF. The reference range was not used to interpr et this result as normal/abnormal . Bacteria, UA (test FEW NONE SEEN /HPF A code = 5769-5) Hyaline casts, UA NONE SEEN NONE SEEN /LPF (test code = 5796-8) TEMO (test code = FASTING:NOFASTING: TEMO) NO RAC (test code = Performing RAC) Organization Information: Site ID: RGA Name: [facility] Lab Address: [address] [place] [address] Director: Bryce Drew Lab Interpretation Abnormal (test code = 79167-0) [place] MethodistAbsolute neutrophil ssnkh5696-07-06 09:59:42 Test Item Value Reference Range Interpretation Comments Neutrophils, absolute 3.08 See_Comment [Auto mated message] The (test code = 751-8) system w [facility] generated this result tra nsmitted reference range : 1.76 - 7.59 k/uL. The reference range was not u sed to interpret this result as normal/abnormal . [place] MethodistBlood culture, aerobic & qffwyruit4273-23-43 19:33:03 Test Item Value Reference Range Interpretation Comments Blood culture No growth Specimen isolate (test after 5 days InformationSpe cimen code = 600-7) of Source: BloodS pecimen incubation. Site: Arm, left [place] MethodistECG 12 [id number] 16:20:59 Test Item Value Reference Range Interpretation [...] wave abnormality now evident in Lateral leads- [facility] metabolic fvlqj3731-92-17 07:21:17 Test Item Value Reference Range Interpretation Comments Sodium (test code = 127 See_Comment L [Automa terence message] 6382-2) The system [employer] generated this result transmit terence reference range : 135 - 148 mEq/L. Th e reference range was not used to interpret this result as normal/abnormal . Potassium (test code = 3.9 See_Comment [Aut omated message] 2572-3) The system [employer] generated this result transmit terence reference range : 3.5 - 5.0 mEq/L. Th e reference range was not used to interpret this result as normal/abnormal . Chloride (test code = 92 See_Comment L [Auto mated message] 3545-0) The system [employer] generated this result transmit terence reference range : 98 - 112 mEq/L. Th e reference range was not used to interpret this result as normal/abnormal . CO2 (test code = 26 See_Comment [Automated message] 2028-06) The system [employer] generated this result transmit terence reference range : 24 - 31 mEq/L. The reference range was not used to interpret this result as normal/abnormal . Anion gap (test code = 9@ANIO See_Comment [Aut omated message] 31370-9) The system [employer] generated this result transmit terence reference range : 7 - 15 mEq/L. The reference range was not used to interpret this result as normal/abnormal . BUN (test code = 22 mg/dL 05-23 3094-0) Creatinine (test code = 1.19 mg/dL 0.5-0.9 H 2160-0) Glucose (test code = 109 mg/dL 65-99 H 2345-7) Calcium (test code = 8.3 mg/dL 8.8-10.2 L 90218-0) Lab Interpretation Abnormal (test code = 08122-3) Can ParisTransthoracic Echocardiogram Complete, (w Contrast, Strain and 3D if needed)2020-02-05 12:06:48 Test Item Value Reference Range Interpretation Comments Velocity Ratio (V1/V2) 0.52 m/s (test code = 4689) IVS,d (test code = 1.09 cm 9737621997) EF (test code = 55.17 % 9134770276) Ascending aorta (test 3.11 cm code = 9510338539) LVPWD,d (test code = 1.11 cm 9763610997) AoV Mean PG (test code 11.76 mmHg = 0497915288) AV LVOT peak gradient 6.36 mmHg (test code = 8146691140) MV mean gradient (test 2.17 mmHg code = 9141506967) MV valve area p 1/2 4.61 cm2 method (test code = 8120071157) PV Pk Grad (test code 7.81 mmHg = 5060940529) E/A ratio (test code = 2.35 0276196945) E wave decelartion 164.60 msec time (test code = 2209203249) LVOT Diam,S (test code 1.93 cm = 7616520255) LVOT area (test code = 2.92 cm2 6615661927) LVOT Vmax (test code = 1.33 m/s 3990702773) LVOT VTI (test code = 0.28 m 9527654036) RVOT Vmax (test code = 1.00 m/s 9148013444) AoV Peak PG (test code 26.50 mmHg = 6469251232) PV Mean Grad (test 3.06 mmHg code = 4209522848) MV Peak E Noam (test 1.34 m/s code = 3454779715) MV stenosis pressure 47.73 ms 1/2 time (test code = 7329882652) MV Peak A Noam (test 0.57 m/s code = 5041902956) Ao Root Diameter (test 3.32 cm code = 9960089562) AoV Area, Vmax (test 1.43 cm2 code = 7646452978) AoV Area, VTI (test 1.77 cm2 code = 4178193916) AoV Vmax (test code = 2.57 m/s 2693740275) IVS/LVPW,2D (test code 0.98 = 6410021618) Left Atrium Dimension 3.53 cm Anterior (test code = 1278996210) LV,d (test code = 4.59 cm 2367474043) LV,s (test code = 3.28 cm 9539139532) PV VMAX (test code = 1.40 m/s 4496450262) PV VTI (test code = 0.26 m 9753287985) RVSP (TR) (test code = 70.13 mmHg 8865204902) TR Vpeak (test code = 3.88 mm/s 2618506278) MV E A ratio (test 2.37 code = 7130112905) TR pk grad (test code 40.08 mmHg = 6814098005) MR peak grad (test 6.46 mmHg code = [id number]) PV Vmn (test code = 0.80 7467227642) RVSP (test code = 70.13 mmHg 2088990475) Ao Root Diameter (test 3.32 cm code = 1314037123) LV SYS VOL (test code 43.36 ml = 8218372256) LV GILLIS VOL (test code 96.73 ml = 6282356047) LV SV Teich 2D (test 53.38 ml code = 0502072397) LV Vol s Teich PSAX 43.36 ml (test code = 5337368138) MV Vmax (test code = 1.27 m 4767697742) MV VTI Tips (test code 0.28 m = 8872315526) RVOT pk grad (test 4.00 mmHg code = 4539896187) AoV Vmn (test code = 1.55 6499361723) LV FS Cube 2D (test 28.60 code = 7410862515) LV FS Teich 2D (test 28.60 code = 5928309231) AoV VTI (test code = 0.46 m 9841989041) LA Area d A4C (test 25.33 cm2 code = 7230937731) LV EF,2D (test code = 63.59 % 4210816696) MR Vmax (test code = 4.41 m/s 6917454199) MV AE ratio (test code 0.42 = 8049091916) LVOT Vmn (test code = 0.94 8790448272) Aov area Vmn (test 1.74 cm2 code = 5235580969) LA Vol d MOD A4C (test 83.63 ml code = 9412395790) LVOT mean grad (test 3.87 mmHg code = 5492765913) MAX Pred HR (test code 147.53 = 3589404073) 85 of MPHR (test code 125.40 = 5204629912) Calc MPHR (test code = 147.53 bpm 3858035301) LV SV Cube 2D (test 61.41 ml code = 6417877342) LV vol d cube 2D (test 96.56 ml code = 5097034511) LV vol s cube 2D (test 35.15 ml code = 2049432350) MV Decel slope (test 8.15 m/s2 code = 9622539361) Pred Exer Dur R1 (test 6.56 code = 3433500346) Pred METS R1 (test 5.28 code = 8518780335) TEMO (test code = TEMO) Normal LV systolic function, ejection fraction 60-64%. Diastolic dysfunction is indeterminate. Bi-atrial enlargement. Mild-moderate tricuspid valve regurgitation. Moderate pulmonic valve regurgitation. Moderate pulmonary hypertension present. Watchung [id number] 22:17:35 Test Item Value Reference Range Interpretation Comments Troponin (test code = <0.006 0-0.04 [place] [address]-0) having a myocar dial infarction, nedra sravan with all other appro priate clinical measur es and actions includi ng ECG and other diagnosti cs as appropriate, me asure Ultra TnI at 0 hrs and [...] de creased by less than 0.020 ng/mL [facility] level, SEPSIS - Now and repeat 2x every 3 hours 2020-02-04 22:03:42 Test Item Value Reference Range Interpretation Comments Lactic acid (test code = 46405-0) 2.2 mmol/L 0.5-2.2 [facility] MethodistB natriuretic [id number] 13:47:02 Test Item Value Reference Range Interpretation Comments BNP (test code = 70821-3) 527 pg/mL 0-100 H Lab Interpretation (test code = Abnormal 10642-8) [facility]Partial thromboplastin time, [id number] 13:38:04 Test Item Value Reference Range Interpretation Comments PTT (test code = 51.9 See_Comment H PTT therape uti range 3173-2) for unfractiona terence heparin is61.0- 112.0 seconds which corresponds to Anti-Xa0.3-0.7 U/ml. [Automated mess age] The system [employer] generated this result transmitted ref erence range: 23.0 - 3 6.0 sec. The refere nce range was not u sed to interpret this result as normal/abnor mal. Lab Interpretation Abnormal (test code = 93211-4) Can [facility]XR Chest 1 Vw [id number] 13:35:10Hm Interface, Radiology Results 02/04/2020 1:38 PM CDTEXAMINATION: XR CHEST 1 VW PORTABLECLINICAL HISTORY: SOBCOMPARISON: Chest x-ray 05/13/2018IMPRESSION: Single frontal view reveals a stable cardiomediastinal silhouette with right sided Port-A-Cath in place. Left basilar opacification has developed partially obscuring the hemidiaphragm concerning for pneumonia and/or trace effusion. Ri ght hemithorax is clear. Old right rib fracture again noted. The remainder of the examination is unchanged.[facility]-[id number] MethodistProthrombin time with [id number] 13:27:48 Test Item Value Reference Range Interpretation Comments Prothrombin time (test 32.1 See_Comment H [Aut omated message] code = 5902-2) The system Sponge generated this result transmitted ref erence range: 11.5 - 1 4.5 sec. The refere nce range was not u sed to interpret this result as normal/abnor mal. INR (test code = 3.1 The [facility] t[facility]er[facility] 68516-1) Normalized Rati o (INR) is a therapeuti c monitoring tool for patients who ar e stable on oral anticoagulant t herapy. An INR of 2.0-3 .0 is suggested for d eep vein thrombosis/pulm onary embolism. 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
[2020-11-24 12:55] LABS: Absolute Lymphocytes (CBC) 0.6 K/uL (0.7-4.9); Basophils % 0.8 % (0-1.3); Hematocrit 24.4 % (36.0-45.0); Lymphocytes % 17.7 % (15.3-44.8); MPV 7.5 fL (7.6-11.3); RBC Red Blood Cell Count 2.41 M/uL (3.86-4.86)
[2020-11-24 13:20] LABS: BUN Blood Urea Nitrogen 24 mg/dL (7-18); Bicarbonate 26 mmol/L (21-32); Glucose Level 154 mg/dL (74-106); Potassium 3.9 mmol/L (3.5-5.1); Sodium Level 134 mmol/L (136-145); Troponin (Emerg Dept Use Only) < 0.02 ng/mL (0.0-0.045)
--- NOTE | 2020-11-24 15:39 | EDPHYS ---
Physician Documentation [facility] Name: Yuliya Kelley Age: 75 yrs Sex: Female : 1945 Arrival Date: 11/24/2020 Time: 09:25 Bed 7 Private MD: ED Physician Facundo Bonilla HPI: 11/24 13:19 This 75 yrs old Female presents to ER via Wheelchair with complaints of High rn Blood Pressure. 13:19 The patient has elevated blood pressure and discovered this at a physician's office. rn Onset: The symptoms/episode began/occurred at an unknown time. Modifying factors:. Associated signs and symptoms: Pertinent negatives: chest pain, lightheadedness, visual changes, vomiting, weakness. Severity of symptoms: At its worst the blood pressure was moderate, in the emergency department the blood pressure is improved. The patient has experienced similar episodes in the past. Reports elevated BP for "some time", went to see PCP today for BP issues, sent here after they documented BP > 200 systolic. Reports otherwise feels ok, has changed her diet recently to eating out more as well as under a lot of stress lately. Also reports multiple medication changes between cardiology and hospitalization. . Historical: - Allergies: 09:48 Demerol; aa5 - Home Meds: 09:48 atenolol 100 mg Oral tab twice a day [Active]; metformin 500 mg Oral tab 2 times per aa5 day [Active]; gabapentin 100 mg oral cap twice a day [Active]; lisinopril 20 mg Oral tab 1 tab once daily [Active]; atorvastatin 20 mg oral tab 1 tab once daily [Active]; Lasix 40 mg Oral tab once daily [Active]; magnesium oxide 400 mg Oral tab daily [Active]; Xarelto 15 mg oral tab daily [Active]; hydralazine 50 mg Oral tab 1 tab 2 times per day [Active]; - PMHx: 09:48 Hypertension; Diabetes - NIDDM; Atrial Fib; Hyperlipidemia; Ovarian Cancer; aa5 - PSHx: 09:48 Hysterectomy; knee replacement; shoulder; aa5 - Immunization history:: Adult Immunizations unknown. - Social history:: Smoking status: Patient denies any tobacco usage or history of. - Family history:: not pertinent. - Hospitalizations: : No recent hospitalization is reported. ROS: 13:19 Constitutional: Negative for fever, chills, and weight loss, Eyes: Negative for injury, rn pain, redness, and discharge, Cardiovascular: Negative for chest pain, palpitations, and edema, Respiratory: Negative for shortness of breath, cough, wheezing, and pleuritic chest pain, Abdomen/GI: Negative for abdominal pain, nausea, vomiting, diarrhea, and constipation, MS/Extremity: Negative for injury and deformity, Skin: Negative for injury, rash, and discoloration, Neuro: Negative for headache, weakness, numbness, tingling, and seizure. Exam: 13:19 Constitutional: This is a well developed, well nourished patient who is awake, alert, rn and in no acute distress. Head/Face: Normocephalic, atraumatic. Cardiovascular: Regular rate and rhythm with a normal S1 and S2. No gallops, murmurs, or rubs. Normal PMI, no JVD. No pulse deficits. Respiratory: Lungs have equal breath sounds bilaterally, clear to auscultation and percussion. No rales, rhonchi or wheezes noted. No increased work of breathing, no retractions or nasal flaring. Abdomen/GI: Soft, non-tender, with normal bowel sounds. No distension or tympany. No guarding or rebound. No evidence of tenderness throughout. Skin: Warm, dry with normal turgor. Normal color with no rashes, no lesions, and no evidence of cellulitis. MS/ Extremity: Pulses equal, no cyanosis. Neurovascular intact. Full, normal range of motion. Equal circumference. Neuro: Awake and alert, GCS 15, oriented to person, place, time, and situation. Cranial nerves II-XII grossly intact. Motor strength 5/5 in all extremities. Sensory grossly intact. Cerebellar exam normal. Vital Signs: 09:52 BP 186 / 94; Pulse 62; Resp 16 S; Temp 97.6(TE); Pulse Ox 100% on R/A; Weight 76.2 kg ca1 (R); Height 5 ft. 7 in. (170.18 cm) (R); Pain 0/10; 14:00 BP 207 / 84; Pulse 67; Resp 16; Pulse Ox 100% on R/A; iw 14:52 BP 208 / 102; Pulse 64; iw 15:10 BP 200 / 93; Pulse 74; Resp 16; iw 15:37 BP 182 / 97; Pulse 70; Resp 16; Pulse Ox 99% on R/A; iw 09:52 Body Mass Index 26.31 (76.20 kg, 170.18 cm) ca1 MDM: 12:08 Patient medically screened. rn 15:36 Differential diagnosis: hypertensive crisis, Malignant HTN, asymptomatic hypertension. rn Data reviewed: vital signs, nurses notes, lab test result(s), EKG, and as a result, I will discharge patient. Counseling: I had a detailed discussion with the patient and/or guardian regarding: the historical points, exam findings, and any diagnostic results supporting the discharge/admit diagnosis, lab results, the need for outpatient follow up, to return to the emergency department if symptoms worsen or persist or if there are any questions or concerns that arise at home. Response to treatment: the patient's symptoms have mildly improved after treatment, and as a result, I will discharge patient. Special discussion: I discussed with the patient/guardian in detail that at this point there is no indication for admission to the hospital. It is understood, however, that if the symptoms persist or worsen the patient needs to return immediately for re-evaluation. Based on the history and exam findings, there is no indication for further emergent testing or inpatient evaluation. I discussed with the patient/guardian the need to see the primary care provider for further evaluation of the symptoms. ED course: NO acute findings on ecg or blood, normal neuro exam. Will dc home with cardiology f/u for BP management. Sees Dr. Plata tomorrow. . 11/24 12:20 Order name: CBC with Diff; Complete Time: 13:17 rn 11/24 12:20 Order name: Basic Metabolic Panel; Complete Time: 13:28 rn 11/24 12:20 Order name: Troponin (emerg Dept Use Only); Complete Time: 13:28 rn 11/24 12:20 Order name: EKG; Complete Time: 12:21 rn 11/24 12:20 Order name: IV Start; Complete Time: 12:52 rn 11/24 12:20 Order name: EKG - Nurse/Tech; Complete Time: 13:36 rn Administered Medications: 14:15 Drug: cloNIDine 0.1 mg Route: PO; iw 15:08 Drug: amLODIPine 10 mg Route: PO; iw Disposition: 11/24/20 15:38 Discharged to Home. Impression: Hypertension. - Condition is Stable. - Discharge Instructions: Hypertension, Managing Your Hypertension. - Medication Reconciliation Form, Thank You Letter, Antibiotic Education, Prescription Opioid Use form. - Follow up: Private Physician; When: As needed; Reason: Recheck today's complaints, Re-evaluation by your physician. - Problem is new. - Symptoms have improved. Signatures: Dispatcher [employer] Tawny Smith RN RN iw Nieto, Roman, MD MD rn Calderon, Audri, RN RN aa5 Corrections: (The following items were deleted from the chart) 15:58 15:38 11/24/2020 15:38 Discharged to Home. Impression: Hypertension. Condition is iw Stable. Forms are Medication Reconciliation Form, Thank You Letter, Antibiotic Education, Prescription Opioid Use. Follow up: Private Physician; When: As needed; Reason: Recheck today's complaints, Re-evaluation by your physician. Problem is new. Symptoms have improved. rn
--- NOTE | 2020-11-24 15:39 | ER ---
Nurse's Notes [facility] Name: Yuliya Kelley Age: 75 yrs Sex: Female : 1945 Arrival Date: 11/24/2020 Time: 09:25 Bed 7 Private MD: Diagnosis: Hypertension Presentation: 11/24 09:38 Chief complaint: Patient states: "I got a cold after the cold front last week and I aa5 went to the doctor today and my blood pressure was around 200/90". Pt states "I've had abdominal pain for a long time and I feel clammy". 09:38 Coronavirus screen: cough unrelated to allergies, Client presents with at least one aa5 sign or symptom that may indicate coronavirus-19. Standard/surgical mask placed on the client. Provider contacted for isolation considerations. Ebola Screen: No symptoms or risks identified at this time. Initial Sepsis Screen: Does the patient meet any 2 criteria? No. Patient's initial sepsis screen is negative. Does the patient have a suspected source of infection? No. Patient's initial sepsis screen is negative. Risk Assessment: Do you want to hurt yourself or someone else? Patient reports no desire to harm self or others. Onset of symptoms was November 24, 2020. 09:38 Acuity: GAUDENCIO 3 aa5 09:38 Method Of Arrival: Wheelchair aa5 Triage Assessment: 15:00 General: Appears in no apparent distress. Behavior is calm, cooperative. Pain: Denies iw pain. Historical: - Allergies: 09:48 Demerol; aa5 - Home Meds: 09:48 atenolol 100 mg Oral tab twice a day [Active]; metformin 500 mg Oral tab 2 times per aa5 day [Active]; gabapentin 100 mg oral cap twice a day [Active]; lisinopril 20 mg Oral tab 1 tab once daily [Active]; atorvastatin 20 mg oral tab 1 tab once daily [Active]; Lasix 40 mg Oral tab once daily [Active]; magnesium oxide 400 mg Oral tab daily [Active]; Xarelto 15 mg oral tab daily [Active]; hydralazine 50 mg Oral tab 1 tab 2 times per day [Active]; - PMHx: 09:48 Hypertension; Diabetes - NIDDM; Atrial Fib; Hyperlipidemia; Ovarian Cancer; aa5 - PSHx: 09:48 Hysterectomy; knee replacement; shoulder; aa5 - Immunization history:: Adult Immunizations unknown. - Social history:: Smoking status: Patient denies any tobacco usage or history of. - Family history:: not pertinent. - Hospitalizations: : No recent hospitalization is reported. Screenin:11 Abuse screen: Denies threats or abuse. Denies injuries from another. Nutritional iw screening: No deficits noted. Tuberculosis screening: No symptoms or risk factors identified. 15:00 Fall Risk None identified. iw Assessment: 14:11 Reassessment: Patient appears in no apparent distress at this time. Patient and/or iw family updated on plan of care and expected duration. Pain level reassessed. Patient is alert, oriented x 3, equal unlabored respirations, skin warm/dry/pink. 15:35 Reassessment: Patient appears in no apparent distress at this time. Patient and/or iw family updated on plan of care and expected duration. Pain level reassessed. Patient is alert, oriented x 3, equal unlabored respirations, skin warm/dry/pink. Vital Signs: 09:52 BP 186 / 94; Pulse 62; Resp 16 S; Temp 97.6(TE); Pulse Ox 100% on R/A; Weight 76.2 kg ca1 (R); Height 5 ft. 7 in. (170.18 cm) (R); Pain 0/10; 14:00 BP 207 / 84; Pulse 67; Resp 16; Pulse Ox 100% on R/A; iw 14:52 BP 208 / 102; Pulse 64; iw 15:10 BP 200 / 93; Pulse 74; Resp 16; iw 15:37 BP 182 / 97; Pulse 70; Resp 16; Pulse Ox 99% on R/A; iw 09:52 Body Mass Index 26.31 (76.20 kg, 170.18 cm) ca1 ED Course: 09:25 Patient arrived in ED. ag5 09:30 Arm band placed on. aa5 09:44 Triage completed. aa5 09:57 EKG completed in triage. Results shown to . aa5 12:08 Facundo Bonilla MD is Attending Physician. rn 12:52 Tawny Lorenzo RN is Primary Nurse. iw 12:52 Initial lab(s) drawn, by id, sent to lab. Inserted saline lock: 22 gauge in left iw antecubital area, using aseptic technique. Blood collected. 14:11 Patient has correct armband on for positive identification. iw 15:57 No provider procedures requiring assistance completed. IV discontinued, intact, iw bleeding controlled, No redness/swelling at site. Pressure dressing applied. Administered Medications: 14:15 Drug: cloNIDine 0.1 mg Route: PO; iw 15:08 Drug: amLODIPine 10 mg Route: PO; iw Outcome: 15:38 Discharge ordered by . rn 15:57 Discharged to home via wheelchair, with family. iw 15:57 Condition: good 15:57 Discharge instructions given to patient, family, Instructed on discharge instructions, follow up and referral plans. Demonstrated understanding of instructions, follow-up care. 15:58 Patient left the ED. iw Signatures: Tawny Lorenzo, RN Facundo Cochran MD MD rn Calderon, Audri, RN RN aa5 Estrellita Restrepo RN RN ca1 Giancarlo Quan ag5
--- NOTE | 2020-11-25 05:39 | EKG ---
Test Date: 2020-11-24 Test Time: 09:57:59 Supervisor [employer]: ZAN MEASUREMENT RESULTS: Intervals: Rate: 53 WI: QRSD: 76 QT: 448 QTc: 420 [place]: P: WI: QRS: 58 T: 98 INTERPRETIVE STATEMENTS: Atrial fibrillation with slow ventricular response Abnormal ECG Compared to ECG 09/20/2020 08:13:24 ST (T wave) deviation no longer present Electronically Signed On 11-25-20 05:35:47 FLOATMAN by Chinmay Echevarria
== END 2020-11-24 15:58 | disposition home or self-care (01) ==
LOC: ER 09:23
DX: I10 Essential (primary) hypertension (principal); E11.9 Type 2 diabetes mellitus without complications; I48.91 Unspecified atrial fibrillation; E78.5 Hyperlipidemia, unspecified; Z85.43 Personal history of malignant neoplasm of ovary; Z96.659 Presence of unspecified artificial knee joint; Z79.84 Long term (current) use of oral hypoglycemic drugs; Z79.01 Long term (current) use of anticoagulants
CPT/HCPCS: 36415; 80048; 84484; 85025; 93005; 99284